=== PATIENT | female | born 1950 | race Caucasian/White ===

== ENCOUNTER 2017-05-28 06:54 | Inpatient (IN) ==
[2017-05-28] MEDS ORDERED: methylPREDNISolone 125 MG/2 ML VIAL IVP ONE (06:59)
[2017-05-28] MEDS ORDERED: Ipratropium/Albuterol Neb 3 ML ONE ×2 (06:59→10:35)
[2017-05-28] MEDS ORDERED: Ipratropium/Albuterol Neb 3 ML IH ONE ×2 (06:59→08:22)
[2017-05-28] MEDS ORDERED: 0.9 % Sodium Chloride 1,000 ML IVC ONE (07:00)
--- NOTE | 2017-05-28 07:12 | Emergency Department Note ---
Disposition Clinical Impression: COPD exacerbation Acute respiratory failure Qualifiers: Respiratory failure complication: hypoxia and hypercapnia Qualified Code(s): J96.01 - Acute respiratory failure with hypoxia Disposition: Admitted As Inpatient Condition: Good Referrals: NONE,PCP [Primary Care Provider] - Forms: ED Satisfaction Letter Time of Disposition: 10:15 SOB HPI - General Chief Complaint: ED Shortness of Breath/Dyspnea Stated Complaint: VERN Time Seen by Provider: 05/28/17 06:55 Source: patient, EMS Mode of arrival: EMS Limitations: altered mental status Nursing Notes Reviewed: Yes Vital Signs Reviewed: Yes - History of Present Illness 67-year-old female who comes by ambulance today for shortness of breath chest pain and not feeling well. EMS state that when they got to her how she was not wearing her home O2, she was smoking, and she was coughing up green mucus. She was satting 78% on room air. They put her on oxygen and got her up to 91%. Patient somewhat somnolent her end-tidal CO2 was above 65 per EMS. - Related Data Home Medications Medication Instructions Recorded Confirmed Alprazolam [Alprazolam Xr] 0.5 mg PO BID 06/06/16 05/28/17 Budesonide/Formoterol 80/4.5 1 puff IH HS 06/06/16 05/28/17 [Symbicort 80/4.5] Duloxetine HCl [Cymbalta] 60 mg PO HS 06/06/16 05/28/17 Ergocalciferol (VITAMIN D2) 50,000 unit PO WD 06/06/16 05/28/17 [Vitamin D2] Ezetimibe [Zetia] 10 mg PO QAM 06/06/16 05/28/17 Furosemide [Lasix] 20 mg PO DAILY 06/06/16 05/28/17 Gabapentin [Neurontin] 600 mg PO DAILY 06/06/16 05/28/17 HYDROcodone/Acet 7.5/325 mg [[place] 1 tab PO TID PRN 06/06/16 05/28/17 7.5-325 mg] Lisinopril-HCTZ 10-12.5 [Prinzide 1 each PO QAM 06/06/16 05/28/17 10-12.5] Metoprolol [Lopressor] 100 mg PO BID 06/06/16 05/28/17 Omeprazole 40 mg PO QAM 06/06/16 05/28/17 Potassium Chloride [Klor-Con] 20 meq PO DAILY 06/06/16 05/28/17 Promethazine [Phenergan] 25 mg PO Q6HR PRN 06/06/16 05/28/17 Albuterol Sulfate [Proair Hfa] 2 puff IH Q4H PRN 10/06/16 05/28/17 Aspirin [Ecotrin] 325 mg PO DAILY 10/06/16 05/28/17 Atorvastatin [Lipitor] 10 mg PO HS 10/06/16 05/28/17 Lactulose 20 gm PO DAILY PRN 10/06/16 05/28/17 Methylphenidate HCl [Ritalin] 15 mg PO 0800,1200 10/06/16 05/28/17 Previous Rx's Medication Instructions Recorded Cyanocobalamin (B-12) [Vitamin B12] 1,000 mcg PO DAILY #30 tablet 06/10/16 Folic Acid 1 mg PO DAILY #30 tablet 06/10/16 Metformin HCl [Glucophage] 500 mg PO BID #0 06/10/16 Allergies Allergy/AdvReac Type Severity Reaction Status Date / Time Sulfa (Sulfonamide Allergy Rash Verified 10/06/16 11:02 Antibiotics) codeine AdvReac Agitated Verified 10/06/16 11:02 morphine AdvReac Agitated Verified 10/06/16 11:02 Review of Systems: ROS reviewed and negative except as per HPI Chart generated with voice recognition software Past Medical History - Past Medical History Attestation: Yes The following information was validated with the patient. Source: patient, old records reviewed, obtained from family, nursing notes reviewed Medical history: Reports: arthritis, asthma, CHF, COPD, GERD, hyperlipidemia, hypertension, myocardial infarction Surgical history: Reports: appendectomy, breast surgery, cholecystectomy, hysterectomy, orthopedic, other, other Psychiatric history: Reports: anxiety, depression MEDICAL ASSISTING INSTRUCTOR history: Reports: no MEDICAL ASSISTING INSTRUCTOR history - Social History Smoking Status: Current every day smoker Smokeless Tobacco Status: No Alcohol use: Reports: rarely Drug use: Reports: none Physical Exam General: mild distress, tachycardic, patient wakes up and mumbles to loud voice/ painful stimulus Head: normocephalic, atraumatic Neck: NO CLA, Supple Chest wall: normal rise, no creptius, no deformity noted Lungs: coarse breath sounds, wheezing Heart: tachycardic Abd: soft, nontender, BS normal : deferred MSK: no obvious deformities neuro: alert and oriented to person. 2-12 grossly intact, patient visibly twitching all over Skin: cap refill delayed, warm, dry Psych: normal affect, not anxious - General Limitations: altered mental status General appearance: lethargic - Head Head exam: atraumatic, normocephalic, normal inspection Course Course Narrative: blood gas at 7:06 is venous. - Reevaluation(s) Reevaluation #1: Care assumed at 0 800. They had not been able to obtain blood work at this point in time. A femoral stick was done by me. Please refer to procedure note. History of present illness and review of systems reviewed. Physical exam reviewed. Blood gases done up until this point in time reviewed. Somnolent white female arousable, moderate respiratory distress, on BiPAP. HEENT: Pupils equal round reactive to light. Oropharynx is moist. Neck: Supple, no adenopathy. Heart: Tachycardic, regular, no murmurs or gallops noted. Lungs: Coarse breath sounds bilaterally, moderate expiratory wheezing, diffuse, scattered rhonchi. Abdomen: Soft, obese, no masses, no apparent tenderness. Neuro: Lethargic but arousable, moans and verbalizes minimally. Moves all extremities. Skin: Warm and dry, no cyanosis, no diaphoresis. Extremities: No peripheral edema. She was just given 3 duo nebs and IV Solu-Medrol. She is on BiPAP. Her first blood gas was venous, repeat blood gas was arterial. It does show some improvement and the pH and decrease in the PCO2. We will continue BiPAP, repeat her blood gas, evaluate for respiratory results. If she continues to improve we will continue BiPAP. If necessary we will proceed with intubation. Time: 08:06 Time: 08:58 Reevaluation #3: We were able to get a hold of her daughter. Nursing staff updated her on the patient's status. We were able to confirm her medications with her daughter. Time: 09:04 Additional Reevaluation(s): 1000: Continues to improve from a mental status standpoint. She arouses easily. She is oriented to person place and time. She knows her date of . Her PCO2 continues to improve, down to 100. Her pH is the same at 7.20. I discussed the case with the hospitalist, Dr. Hobbs. We will keep her here and continue treatment for COPD exacerbation. - Consultations Additional Consultation(s): Patient is more alert. She will open her eyes and speak. She is moving air somewhat better. Still coarse breath sounds bilaterally with some mild wheezing. She just finished her second stack of 3 nebulizers. We will be getting a repeat blood gas in the next 10 minutes. Vital Signs Temperature 98.2 F 05/28/17 06:58 Pulse Rate 109 05/28/17 06:58 Respiratory Rate 21 05/28/17 06:58 Blood Pressure 122/69 05/28/17 06:58 O2 Sat by Pulse Oximetry 88 05/28/17 06:58 Temperature 98.2 F 05/28/17 06:58 Pulse Rate 87 05/28/17 09:58 Respiratory Rate 18 05/28/17 09:58 Blood Pressure 109/58 05/28/17 09:58 O2 Sat by Pulse Oximetry 96 05/28/17 09:58 Oxygen Delivery Oxygen Delivery Bipap Procedures - Phlebotomy Reason for Blood Draw by MD: RN/lab unable Obtained Bloods via: femoral vein stick, femoral artery stick Estimated cc's Blood Obtained: 20 Shortness of Breath/Dyspnea - Medical Records Medical records reviewed: Yes I reviewed the patient's medical records. - Lab Data Lab results reviewed: Yes I reviewed the patient's lab results. Result diagrams: 05/28/17 08:05 05/28/17 08:05 Lab Results 05/28/17 05/28/17 05/28/17 Range/Units 07:06 07:45 08:05 WBC 8.5 (4.3-11.1) K/mcL RBC 4.00 (3.82-4.97) M/mcL Hgb 10.8 L (11.5-15.4) g/dL Hct 35.7 (35.3-44.9) % MCV 89.3 (83.0-100.0) fL MCH 27.0 L (28.0-33.3) pg MCHC 30.3 L (31.6-35.5) g/dL RDW 13.9 (11.5-14.5) % Plt Count 234 (140-400) K/mcL MPV 10.5 (9.4-12.4) fL Seg Neutrophils % 72.0 % Band Neutrophils % 9.0 H (0-4) % Lymphocytes % 8.0 % Monocytes % 10.0 % Myelocytes % 1.0 H (0) % Neutrophils # 6.9 (1.6-8.9) K/mcL Lymphocytes # 0.7 (0.6-4.6) K/mcL Monocytes # 0.9 (0.0-1.3) K/mcL Toxic Granulation Present A (Not Present) Toxic Vacuolation Present A (Not Present) Platelet Estimate Normal (Normal) PT (9.4-12.1) Seconds INR APTT (26.0-36.0) Seconds Sample Site R Brach ABG pH 7.16 L* 7.20 L* (7.32-7.45) pH Units ABG pCO2 121 H* 107 H* (35-45) mmHg ABG pO2 34 L* 71 L (85-104) mmHg ABG HCO3 43 H 41 H (21-27) mEq/L ABG Total CO2 47 H 45 H (20-26) mEq/L ABG O2 Saturation 44 L 88 L (95-98) % ABG Base Excess 9 H 9 H (-2 to 3) mEq/L Inspired O2 21.0 (1-15=lpm hy62-345=%) Sodium (136-145) mEq/L Potassium (3.5-4.5) mEq/L Chloride (98-109) mEq/L Carbon Dioxide (19-29) mEq/L BUN (7-20) mg/dL Creatinine (0.57-1.11) mg/dL Est GFR ( Amer) (> 60) Est GFR (Non-Af Amer) (> 60) BUN/Creatinine Ratio (6-26) Glucose (70-99) mg/dL Calculated Osmolality (280-300) Lactic Acid (0.5-2.2) mmol/L Calcium (8.6-10.8) mg/dL Troponin I (0-0.03) ng/mL B-Natriuretic Peptide (0-100) pg/mL Urine Color (Yellow) Urine Clarity (Clear) Urine pH (5.0-8.0) pH Units Ur Specific [place] (1.010-1.025) Urine Protein (Neg-Trace) mg/dL Urine Glucose (UA) (Normal) mg/dL Urine Ketones (Negative) mg/dL Urine Blood (Negative) Urine Nitrite (Negative) Urine Bilirubin (Negative) Urine Urobilinogen (Normal) mg/dL Ur Leukocyte Esterase (Negative) Urine Microscopic WBC (0-3) per hpf Ur Squamous Epith Cells (None-Few) per lpf Amorphous Sediment (Few) Urine Bacteria (None-Few) per hpf Urine Mucus (Few) Ur Culture Indicated? (NO) Person Notif of Cornellkorey Fletchersirena 05/28/17 05/28/17 05/28/17 Range/Units 08:05 08:05 08:05 WBC (4.3-11.1) K/mcL RBC (3.82-4.97) M/mcL Hgb (11.5-15.4) g/dL Hct (35.3-44.9) % MCV (83.0-100.0) fL MCH (28.0-33.3) pg MCHC (31.6-35.5) g/dL RDW (11.5-14.5) % Plt Count (140-400) K/mcL MPV (9.4-12.4) fL Seg Neutrophils % % Band Neutrophils % (0-4) % Lymphocytes % % Monocytes % % Myelocytes % (0) % Neutrophils # (1.6-8.9) K/mcL Lymphocytes # (0.6-4.6) K/mcL Monocytes # (0.0-1.3) K/mcL Toxic Granulation (Not Present) Toxic Vacuolation (Not Present) Platelet Estimate (Normal) PT 12.4 H (9.4-12.1) Seconds INR 1.1 APTT 23.2 L (26.0-36.0) Seconds Sample Site ABG pH (7.32-7.45) pH Units ABG pCO2 (35-45) mmHg ABG pO2 (85-104) mmHg ABG HCO3 (21-27) mEq/L ABG Total CO2 (20-26) mEq/L ABG O2 Saturation (95-98) % ABG Base Excess (-2 to 3) mEq/L Inspired O2 (1-15=lpm ag26-180=%) Sodium 140 (136-145) mEq/L Potassium 4.7 H (3.5-4.5) mEq/L Chloride 94 L (98-109) mEq/L Carbon Dioxide 37 H (19-29) mEq/L BUN 25 H (7-20) mg/dL Creatinine 0.75 (0.57-1.11) mg/dL Est GFR ( Amer) > 60 (> 60) Est GFR (Non-Af Amer) > 60 (> 60) BUN/Creatinine Ratio 33 H (6-26) Glucose 174 H (70-99) mg/dL Calculated Osmolality 299 (280-300) Lactic Acid 0.7 (0.5-2.2) mmol/L Calcium 10.1 (8.6-10.8) mg/dL Troponin I (0-0.03) ng/mL B-Natriuretic Peptide (0-100) pg/mL Urine Color (Yellow) Urine Clarity (Clear) Urine pH (5.0-8.0) pH Units Ur Specific [place] (1.010-1.025) Urine Protein (Neg-Trace) mg/dL Urine Glucose (UA) (Normal) mg/dL Urine Ketones (Negative) mg/dL Urine Blood (Negative) Urine Nitrite (Negative) Urine Bilirubin (Negative) Urine Urobilinogen (Normal) mg/dL Ur Leukocyte Esterase (Negative) Urine Microscopic WBC (0-3) per hpf Ur Squamous Epith Cells (None-Few) per lpf Amorphous Sediment (Few) Urine Bacteria (None-Few) per hpf Urine Mucus (Few) Ur Culture Indicated? (NO) Person Notif of Crit 05/28/17 05/28/17 05/28/17 Range/Units 08:05 08:05 08:10 WBC (4.3-11.1) K/mcL RBC (3.82-4.97) M/mcL Hgb (11.5-15.4) g/dL Hct (35.3-44.9) % MCV (83.0-100.0) fL MCH (28.0-33.3) pg MCHC (31.6-35.5) g/dL RDW (11.5-14.5) % Plt Count (140-400) K/mcL MPV (9.4-12.4) fL Seg Neutrophils % % Band Neutrophils % (0-4) % Lymphocytes % % Monocytes % % Myelocytes % (0) % Neutrophils # (1.6-8.9) K/mcL Lymphocytes # (0.6-4.6) K/mcL Monocytes # (0.0-1.3) K/mcL Toxic Granulation (Not Present) Toxic Vacuolation (Not Present) Platelet Estimate (Normal) PT (9.4-12.1) Seconds INR APTT (26.0-36.0) Seconds Sample Site ABG pH (7.32-7.45) pH Units ABG pCO2 (35-45) mmHg ABG pO2 (85-104) mmHg ABG HCO3 (21-27) mEq/L ABG Total CO2 (20-26) mEq/L ABG O2 Saturation (95-98) % ABG Base Excess (-2 to 3) mEq/L Inspired O2 (1-15=lpm rf88-245=%) Sodium (136-145) mEq/L Potassium (3.5-4.5) mEq/L Chloride (98-109) mEq/L Carbon Dioxide (19-29) mEq/L BUN (7-20) mg/dL Creatinine (0.57-1.11) mg/dL Est GFR ( Amer) (> 60) Est GFR (Non-Af Amer) (> 60) BUN/Creatinine Ratio (6-26) Glucose (70-99) mg/dL Calculated Osmolality (280-300) Lactic Acid (0.5-2.2) mmol/L Calcium (8.6-10.8) mg/dL Troponin I 0.00 (0-0.03) ng/mL B-Natriuretic Peptide 104 H (0-100) pg/mL Urine Color Yellow (Yellow) Urine Clarity Slightly Cloudy A (Clear) Urine pH 5.5 (5.0-8.0) pH Units Ur Specific [place] >= 1.030 H (1.010-1.025) Urine Protein 100 H (Neg-Trace) mg/dL Urine Glucose (UA) Normal (Normal) mg/dL Urine Ketones Negative (Negative) mg/dL Urine Blood Negative (Negative) Urine Nitrite Negative (Negative) Urine Bilirubin Negative (Negative) Urine Urobilinogen Normal (Normal) mg/dL Ur Leukocyte Esterase Negative (Negative) Urine Microscopic WBC 0-3 (0-3) per hpf Ur Squamous Epith Cells Few (None-Few) per lpf Amorphous Sediment Moderate H (Few) Urine Bacteria Moderate H (None-Few) per hpf Urine Mucus Moderate H (Few) Ur Culture Indicated? NO (NO) Person Notif of Crit 05/28/17 Range/Units 09:33 WBC (4.3-11.1) K/mcL RBC (3.82-4.97) M/mcL Hgb (11.5-15.4) g/dL Hct (35.3-44.9) % MCV (83.0-100.0) fL MCH (28.0-33.3) pg MCHC (31.6-35.5) g/dL RDW (11.5-14.5) % Plt Count (140-400) K/mcL MPV (9.4-12.4) fL Seg Neutrophils % % Band Neutrophils % (0-4) % Lymphocytes % % Monocytes % % Myelocytes % (0) % Neutrophils # (1.6-8.9) K/mcL Lymphocytes # (0.6-4.6) K/mcL Monocytes # (0.0-1.3) K/mcL Toxic Granulation (Not Present) Toxic Vacuolation (Not Present) Platelet Estimate (Normal) PT (9.4-12.1) Seconds INR APTT (26.0-36.0) Seconds Sample Site ABG pH 7.20 L* (7.32-7.45) pH Units ABG pCO2 100 H* (35-45) mmHg ABG pO2 69 L (85-104) mmHg ABG HCO3 40 H (21-27) mEq/L ABG Total CO2 43 H (20-26) mEq/L ABG O2 Saturation 87 L (95-98) % ABG Base Excess 8 H (-2 to 3) mEq/L Inspired O2 (1-15=lpm lk40-783=%) Sodium (136-145) mEq/L Potassium (3.5-4.5) mEq/L Chloride (98-109) mEq/L Carbon Dioxide (19-29) mEq/L BUN (7-20) mg/dL Creatinine (0.57-1.11) mg/dL Est GFR ( Amer) (> 60) Est GFR (Non-Af Amer) (> 60) BUN/Creatinine Ratio (6-26) Glucose (70-99) mg/dL Calculated Osmolality (280-300) Lactic Acid (0.5-2.2) mmol/L Calcium (8.6-10.8) mg/dL Troponin I (0-0.03) ng/mL B-Natriuretic Peptide (0-100) pg/mL Urine Color (Yellow) Urine Clarity (Clear) Urine pH (5.0-8.0) pH Units Ur Specific [place] (1.010-1.025) Urine Protein (Neg-Trace) mg/dL Urine Glucose (UA) (Normal) mg/dL Urine Ketones (Negative) mg/dL Urine Blood (Negative) Urine Nitrite (Negative) Urine Bilirubin (Negative) Urine Urobilinogen (Normal) mg/dL Ur Leukocyte Esterase (Negative) Urine Microscopic WBC (0-3) per hpf Ur Squamous Epith Cells (None-Few) per lpf Amorphous Sediment (Few) Urine Bacteria (None-Few) per hpf Urine Mucus (Few) Ur Culture Indicated? (NO) Person Notif of Tiffany villafuerte - Radiology Data Radiology results reviewed: Yes I reviewed the patient's radiology results. Impressions Chest X-Ray 05/28/17 07:00 IMPRESSION: Subtle interstitial reticulonodular changes which could represent pulmonary edema or possible bronchitis/bronchiolitis. No lobar pneumonia. D/ / 05/28/2017 08:22:58 Rubin Blair MD / Delphine Middleton Interpreting Provider: Rubin Blair MD - EKG Data EKG attestation: Yes I reviewed and interpreted this EKG. EKG results narrative: Sinus rhythm, rate of 93, nonspecific ST-T changes. Baseline artifact. Rhythm strip shows sinus rhythm with rate of 93, OK interval 152 ms, QRS 89 ms with no other ectopy as interpreted by me. This is compared to a tracing dated 11/10/16, no significant change other than the tachycardia noted on the november tracing. EKG shows normal: Reports: sinus rhythm Rate: Reports: normal Rhythm: Reports: NSR Raymond/QRS: Reports: normal Interpretation: Reports: no acute changes. Denies: acute OH, pericarditis Critical Care Time Critical Care Time: Yes Total Critical Care Time: 30 Attestation: Critical care time includes my initial assessment, review of laboratory, EKG, chest x-ray, multiple reassessments, review of arterial blood gases, consultation with hospitalist for admission. No procedure time is included. Ronit - Ronit Transition of Care: Patient labs history x-ray and current situation reviewed with the oncoming physician at shift change Situation: Demographics Background: Presenting Complaint, Relevant PMH, Meds, & Allergies Assessment: Vital Signs, Course and respsone to treatment, Exam Concerns, Patient/Family Expectation, Pertinant Lab Results, Outstanding Labs Recommendation: Barrier(s) to disposition, Recommendation based on pending studies, treatments, or consults S.B.APaty Report Given to: Dr Sharona Cottrell Repor Time: 08:03
[2017-05-28 07:51] LABS: ABG Base Excess 9 mEq/L (-2 to 3); ABG HCO3 41 mEq/L (21-27); ABG Oxygen Saturation 88 % (95-98); ABG PCO2 107 mmHg (35-45); ABG PO2 71 mmHg (85-104); ABG TCO2 45 mEq/L (20-26)
[2017-05-28 08:20] LABS: Bilirubin,Urine Negative (Negative); Blood,Urine Negative (Negative); Clarity,Urine Slightly Cloudy (Clear); Color,Urine Yellow (Yellow); Glucose,Urine (UA) Normal (Normal); Ketones,Urine Negative (Negative); Leukocyte Esterase,Urine Negative (Negative); Nitrite,Urine Negative (Negative); PH,Urine 5.5 pH Units (5.0-8.0); Protein,Urine 100 mg/dL (Neg-Trace); Specific Gravity,Urine >= 1.030 (1.010-1.025); Urobilinogen,Urine Normal (Normal)
[2017-05-28 08:21] LABS: Hematocrit 35.7 % (35.3-44.9); Hemoglobin 10.8 g/dL (11.5-15.4); Mean Corpuscular HGB Conc 30.3 g/dL (31.6-35.5); Mean Corpuscular Volume 89.3 fL (83.0-100.0); Mean Platelet Volume 10.5 fL (9.4-12.4); Platelet Count 234 K/mcL (140-400); Red Cell Distribution Width 13.9 % (11.5-14.5)
[2017-05-28 08:23] LABS: INR 1.1; Prothrombin Time 12.4 Seconds (9.4-12.1)
[2017-05-28 08:25] LABS: Activated Partial Thrombo Time 23.2 Seconds (26.0-36.0)
[2017-05-28] MEDS ORDERED: Albuterol 2.5 MG/3 ML NEBULIZER IH SCH ×2 (08:30→10:35)
[2017-05-28 08:34] LABS: BUN/Creatinine Ratio 33 (6-26); Blood Urea Nitrogen 25 mg/dL (7-20); Calcium 10.1 mg/dL (8.6-10.8); Carbon Dioxide 37 mEq/L (19-29); Chloride 94 mEq/L (98-109); Glucose 174 mg/dL (70-99); Osmolality,Calculated 299 (280-300); Potassium 4.7 mEq/L (3.5-4.5); Sodium 140 mEq/L (136-145); eGFR For African Americans > 60 (> 60); eGFR For Non-African Americans > 60 (> 60)
[2017-05-28 08:40] LABS: Amorphous Sediment,Urine Moderate (Few); Bacteria,Urine Moderate per hpf (None-Few); Mucus,Urine Moderate (Few); Squamous Epithelial Cell,Urine Few per lpf (None-Few); WBC,Urine 0-3 per hpf (0-3)
[2017-05-28 08:55] LABS: Lymphocytes # 0.7 K/mcL (0.6-4.6); Monocytes # 0.9 K/mcL (0.0-1.3)
[2017-05-28 08:56] LABS: Neutrophils # 6.9 K/mcL (1.6-8.9); Platelet Estimate Normal (Normal); Toxic Granulation Present (Not Present); Toxic Vacuolation Present (Not Present)
[2017-05-28 09:40] LABS: ABG Base Excess 8 mEq/L (-2 to 3); ABG HCO3 40 mEq/L (21-27); ABG Oxygen Saturation 87 % (95-98); ABG PCO2 100 mmHg (35-45); ABG PO2 69 mmHg (85-104); ABG TCO2 43 mEq/L (20-26)
[2017-05-28] MEDS ORDERED: Lactulose Oral Soln 20 GM/30 ML UDC PO PRN (10:35)
[2017-05-28] MEDS ORDERED: Naloxone 0.4 MG/ML INJ IVP PRN (10:35)
[2017-05-28] MEDS ORDERED: 0.9 % Sodium Chloride 1,000 ML IVC SCH (10:35)
[2017-05-28] MEDS: Ipratropium/Albuterol Neb 3 ML IH SCH ×3 (11:51→20:04)
[2017-05-28] MEDS ORDERED: ALPRAZolam 0.5 MG TABLET PO PRN (12:15)
--- NOTE | 2017-05-28 12:21 | Internal Med History&Physical ---
Date of Encounter: 05/28/17 Time of Encounter: 11:50 Assessment and Plan (1) Acute respiratory failure Current visit: Yes Status: Acute She has been placed on BiPAP. Follow-up blood gas will be ordered and other intervention as needed. Qualifiers: Respiratory failure complication: hypoxia and hypercapnia Qualified Code(s) : J96.01 - Acute respiratory failure with hypoxia; J96.02 - Acute respiratory failure with hypercapnia; J96.02 - Acute respiratory failure with hypercapnia; J96.02 - Acute respiratory failure with hypercapnia (2) Acute exacerbation of chronic obstructive airways disease Current visit: No Status: Acute She will be given nebulizer treatments and Solu-Medrol. Follow-up labs will be done in a.m. Internal Medicine - H&P: HPI Chief complaint: Dyspnea Admitted From: Home Plans for Post Hospital Care: Home History of present illness: Ms. Barnes is a 67 year old female who was brought to emergency room by squad after she was found to have hypoxemia with O2 saturation 78% on room air. Per the emergency room record, when the squad arrived the patient was not wearing home oxygen but was smoking. Her saturation improved to 91% on reapplication of oxygen. She was evaluated in emergency room and found to have acute respiratory insufficiency. She was placed on BiPAP and a follow-up blood gas showed some improvement. She was admitted to [facility] floor for ongoing care needs. She was hospitalized last at [facility] May 2016 with similar complaints. Her respiratory history is significant for having smoked since age 13 up to 1 pack per day. She wears oxygen at home / except taking it off to smoke. She denies PFTs. 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 Past Med Surg Social Fam HX - Past Medical History Medical history: arthritis, asthma, CHF, COPD, GERD, hyperlipidemia, hypertension, myocardial infarction Psychiatric history: anxiety, depression - Past Surgical History Surgical History: appendectomy, breast surgery, cholecystectomy, hysterectomy, orthopedic, other, other - Social History Smoking Status: Current every day smoker Smokeless Tobacco Status: No Alcohol use: rarely Drug use: none - Family History Mother Living Status: Hx Family Cancer: Yes Father Living Status: Hx Family Cancer: Yes (bone) Internal Medicine - H&P: Meds Alprazolam [Alprazolam Xr] 0.5 mg PO BID 11/29/16 [History] Budesonide/Formoterol 80/4.5 [Symbicort 80/4.5] 1 puff IH HS 06/06/16 [History] Duloxetine HCl [Cymbalta] 60 mg PO HS 06/06/16 [History] Ergocalciferol (VITAMIN D2) [Vitamin D2] 50,000 unit PO WD 06/06/16 [History] Ezetimibe [Zetia] 10 mg PO QAM 06/06/16 [History] Furosemide [Lasix] 20 mg PO DAILY 06/06/16 [History] Gabapentin [Neurontin] 600 mg PO DAILY 06/06/16 [History] HYDROcodone/Acet 7.5/325 mg [[place] 7.5-325 mg] 1 tab PO TID PRN 06/06/16 [ History] Lisinopril-HCTZ 10-12.5 [Prinzide 10-12.5] 1 each PO QAM 06/06/16 [History] Metoprolol [Lopressor] 100 mg PO BID 06/06/16 [History] Omeprazole 40 mg PO QAM 06/06/16 [History] Potassium Chloride [Klor-Con] 20 meq PO DAILY 06/06/16 [History] Promethazine [Phenergan] 25 mg PO Q6HR PRN 06/06/16 [History] Cyanocobalamin (B-12) [Vitamin B12] 1,000 mcg PO DAILY #30 tablet 06/10/16 [Rx] Folic Acid 1 mg PO DAILY #30 tablet 06/10/16 [Rx] Metformin HCl [Glucophage] 500 mg PO BID #0 06/10/16 [Rx] Albuterol Sulfate [Proair Hfa] 2 puff IH Q4H PRN 10/06/16 [History] Aspirin [Ecotrin] 325 mg PO DAILY 10/06/16 [History] Atorvastatin [Lipitor] 10 mg PO HS 10/06/16 [History] Lactulose 20 gm PO DAILY PRN 10/06/16 [History] Methylphenidate HCl [Ritalin] 15 mg PO 0800,1200 10/06/16 [History] 3 Allergy/AdvReac Type Severity Reaction Status Date / Time Sulfa (Sulfonamide Allergy Rash Verified 10/06/16 11:02 Antibiotics) codeine AdvReac Agitated Verified 10/06/16 11:02 morphine AdvReac Agitated Verified 10/06/16 11:02 All Systems PM: A 10-system review of systems was performed and is negative for pertinent findings except as documented above in the HPI. Review of systems: Review of systems from her May 2016 [facility] hospitalization were reviewed and revised as below. Gen.: Her weight has increased minimally from 89.539 kg on 06/10/2016 to 91.172 kg now Cardiovascular: She has history of hypertension. Denies CA heart failure angina DVT or pulmonary embolus. She had an echocardiogram at [facility] 08/01/2014 which showed LVEF of 70%. There was mild diastolic dysfunction reported with E/ A ratio 0.7. There was mild tricuspid regurgitation present. She had a left heart catheter done at [facility] 08/03/2014 which showed 50% stenosis in the mid RCA , 30% stenosis in the mid circumflex and 40% stenosis in the first marginal branch of the circumflex. There was 30% stenosis in the proximal LAD and 40% stenosis in the mid LAD. The LMCA was angiographically free of disease. The LVEF was 65%. Respiratory: As per history of present illness GI: She has had cholecystectomy. She has GERD. She denies disorders of her liver or exocrine pancreas. : She had hematuria in the past which resolved. She denies other kidney or bladder disorders. Neurologic: She denies large distribution strokes or seizures. She has diabetic peripheral neuropathy Endocrine: She was diagnosed with DM 2 approximately 2006. She has hyperlipidemia and hypothyroidism history but does not take levothyroxin. Hematology/oncology: She had anemia found on emergency room blood work. She denies internal malignancies. She had a benign right breast lump removed several years ago. Psychiatric: She has anxiety depression but denies other mental health issues Musk skeletal: She has DJD. She complains of chronic low back pain today. She denies gout. - Constitutional Vitals: Temp Pulse Resp BP Pulse Ox 98.2 F 85 24 125/80 98 05/28/17 06:58 05/28/17 10:24 05/28/17 10:24 05/28/17 10:24 05/28/17 10:24 Exam: Gen.: She is a well-developed well-nourished female who appears in no severe distress at present time. She is lethargic but does awaken and answer a few questions. HEENT: Head is atraumatic and normocephalic. Eyes: EOMI. There is no scleral icterus. Mouth: Mucosa is moist. Neck: Supple and nontender. There is no thyromegaly or adenopathy noted. Heart: Regular without murmurs gallops or ectopics Lungs: No wheezes or crackles are heard. Abdomen: Soft and nontender. No masses or guarding are noted. Extremities: There is no cyanosis edema, noted. Dorsalis pedis and posterior tibial pulses are trace palpable bilaterally. Neurologic: Mental status: She is lethargic but awakens and answers a few questions. Cranial nerves: Smile is symmetric. Forehead wrinkles bilaterally. Tongue protrudes midline. EOMI. Motor: She does not follow commands for pronator drift testing. She has equal arm tone on passive range of motion. She moves her arms well randomly to observation. No further neurologic testing is attempted. Skin: Warm and dry Internal Med - H&P Results - Labs CBC & Chem 7: 05/28/17 08:05 05/28/17 08:05
--- NOTE | 2017-05-28 13:09 | Electrocardiograph Report ---
[place] [id number] Test Date: 2017-05-28 Pat Name: Radha Barnes Department: 9201 Room: [facility] Gender: F Land Planner: Solitario : 1950 Requested By: Elyssa Hurst Order Number: [id number] Reading MD: Bonny Oquendo Measurements Intervals [place] Rate: 93 P: 71 [place]: 152 QRS: 59 QRSD: 89 T: 60 QT: 320 QTc: 371 Interpretive Statements SINUS RHYTHM ARTIFACT Electronically Signed On 05-28-2017 12:38:00 EST by Bonny Oquendo
[2017-05-28] MEDS: Nicotine 21 MG PATCH.TD24 TD SCH (14:25)
[2017-05-28] MEDS: METHYLPHENIDATE HCL 10 MG PO SCH (14:25)
[2017-05-28] MEDS: methylPREDNISolone 125 MG/2 ML VIAL IVP SCH (14:25)
[2017-05-28] MEDS: *HR* HYDROcodone/Acet 7.5/325 mg TABLET PO PRN (17:33)
[2017-05-28 18:31] LABS: ABG Base Excess 9 mEq/L (-2 to 3); ABG HCO3 39 mEq/L (21-27); ABG Oxygen Saturation 84 % (95-98); ABG PCO2 78 mmHg (35-45); ABG PO2 57 mmHg (85-104); ABG TCO2 41 mEq/L (20-26)
[2017-05-28] MEDS ORDERED: *HR* Metformin 500 MG TABLET PO SCH (21:00)
[2017-05-28] MEDS ORDERED: Gabapentin 300 MG CAPSULE PO ONE (21:00)
[2017-05-28] MEDS ORDERED: ALPRAZolam 0.5 MG TABLET PO SCH (21:00)
[2017-05-28] MEDS ORDERED: 0.45 % Sodium Chloride 500 ML IV.SOLN IVC SCH (22:00)
[2017-05-29] MEDS: Ipratropium/Albuterol Neb 3 ML IH SCH ×3 (00:10→09:20)
[2017-05-29] MEDS: methylPREDNISolone 125 MG/2 ML VIAL IVP SCH ×2 (00:46→11:39)
[2017-05-29] MEDS: *HR* HYDROcodone/Acet 7.5/325 mg TABLET PO PRN ×2 (04:24→20:44)
[2017-05-29] MEDS ORDERED: *HR* Enoxaparin 30 MG/0.3 ML SYRINGE SQ SCH (06:00)
[2017-05-29 07:44] LABS: Hematocrit 33.4 % (35.3-44.9); Hemoglobin 9.8 g/dL (11.5-15.4); Immature Granulocytes % 0.3 % (0-4); Lymphocytes # 0.6 K/mcL (0.6-4.6); Lymphocytes % 7.9 %; Mean Corpuscular HGB Conc 29.3 g/dL (31.6-35.5); Mean Corpuscular Hemoglobin 25.9 pg (28.0-33.3); Mean Corpuscular Volume 88.4 fL (83.0-100.0); Mean Platelet Volume 9.9 fL (9.4-12.4); Monocytes # 0.4 K/mcL (0.0-1.3); Monocytes % 4.8 %; Neutrophils # 6.5 K/mcL (1.6-8.9); Platelet Count 203 K/mcL (140-400); Red Blood Count 3.78 M/mcL (3.82-4.97); Red Cell Distribution Width 13.9 % (11.5-14.5)
[2017-05-29] MEDS: *HR* Metformin 500 MG TABLET PO SCH ×2 (07:56→18:09)
[2017-05-29] MEDS: Cyanocobalamin (B-12) 1,000 MCG TABLET PO SCH (07:56)
[2017-05-29] MEDS: Folic Acid 1 MG TABLET PO SCH (07:57)
[2017-05-29] MEDS ORDERED: methylPREDNISolone 125 MG/2 ML VIAL IVP SCH (08:00)
[2017-05-29] MEDS ORDERED: Aspirin Enteric Coated 325 MG Tablet PO SCH (09:00)
[2017-05-29] MEDS ORDERED: Furosemide 20 MG TABLET PO SCH (09:00)
[2017-05-29] MEDS ORDERED: Gabapentin 300 MG CAPSULE PO SCH (09:00)
[2017-05-29] MEDS: Nicotine 21 MG PATCH.TD24 TD SCH (09:05)
[2017-05-29] MEDS: Cholecalciferol (D-3) 1,000 UNIT TABLET PO SCH (09:09)
[2017-05-29] MEDS: (Ezetimibe [Zetia] 10 MG) PO SCH (09:10)
[2017-05-29 09:16] LABS: ABG Base Excess 9 mEq/L (-2 to 3); ABG HCO3 38 mEq/L (21-27); ABG Oxygen Saturation 85 % (95-98); ABG PCO2 75 mmHg (35-45); ABG PH 7.32 pH Units (7.32-7.45); ABG PO2 56 mmHg (85-104); ABG TCO2 41 mEq/L (20-26)
--- NOTE | 2017-05-29 09:42 | Internal Med Progress Note ---
Date of Encounter: 05/29/17 Time of Encounter: 09:35 - Assessment and plan (1) Acute respiratory failure Current Visit: Yes Status: Acute Assessment and plan: May 29. Continue present regimen. Anticipate discharge home tomorrow if stable. Qualifiers: Respiratory failure complication: hypoxia and hypercapnia Qualified Code(s) : J96.01 - Acute respiratory failure with hypoxia; J96.02 - Acute respiratory failure with hypercapnia; J96.02 - Acute respiratory failure with hypercapnia; J96.02 - Acute respiratory failure with hypercapnia (2) Acute exacerbation of chronic obstructive airways disease Current Visit: No Status: Acute Assessment and plan: May 29. Will add Levaquin with lactobacillus since she has left shift on WBC and is producing yellow mucus with coughing. (3) Anemia Current Visit: No Status: Acute Assessment and plan: May 29. Anemia testing was ordered with results pending. Reduce aspirin to 81 mg daily Qualifiers: Anemia type: unspecified type Qualified Code(s): D64.9 - Anemia, unspecified (4) Lung nodule < 6cm on CT Current Visit: No Status: Chronic Assessment and plan: May 29. Will order repeat chest CT today. - Subjective Interval history: May 29. She has no new complaints and feels better overall. - Constitutional Vitals: Temp Pulse Resp BP Pulse Ox 98.1 F 80 18 108/51 90 05/29/17 06:36 05/29/17 06:36 05/29/17 06:36 05/29/17 06:36 05/29/17 06:36 Exam: She is resting comfortably in bed and appears in no acute distress. Her affect is bright and cheerful and she is appropriate in conversation. Lungs showed no wheezes. I reviewed her medications and lab results. Internal Medicine: Result - Labs CBC & Chem 7: 05/29/17 07:33 05/28/17 08:05 Labs: Short CBC 05/29/17 Range/Units 07:33 WBC 7.5 (4.3-11.1) K/mcL Hgb 9.8 L (11.5-15.4) g/dL Hct 33.4 L (35.3-44.9) % Plt Count 203 (140-400) K/mcL Neutrophils # 6.5 (1.6-8.9) K/mcL - ABG Interpretation ABG results: ABG ABG pH 7.32 pH Units (7.32-7.45) 05/29/17 09:11 ABG pCO2 75 mmHg (35-45) H* 05/29/17 09:11 ABG pO2 56 mmHg (85-104) L 05/29/17 09:11 ABG O2 Saturation 85 % (95-98) L 05/29/17 09:11 PT/INR, D-dimer PT 12.4 Seconds (9.4-12.1) H 05/28/17 08:05 Consult Discharge Plan - Plan Referrals: NONE,PCP [Primary Care Provider] - 1 week
[2017-05-29] MEDS ORDERED: Aspirin Enteric Coated 81 MG Tablet PO SCH (09:48)
[2017-05-29] MEDS ORDERED: Ipratropium/Albuterol Neb 3 ML IH PRN (09:49)
[2017-05-29 10:04] LABS: Alanine Aminotransferase 18 Units/L (0-55); Albumin 2.5 g/dL (3.5-5.0); Albumin/Globulin Ratio 0.6 (1.1-2.2); Alkaline Phosphatase 76 Units/L (38-126); Aspartate Amino Transferase 17 Units/L (5-34); BUN/Creatinine Ratio 32 (6-26); Bilirubin,Total 0.2 mg/dL (0.2-1.2); Blood Urea Nitrogen 22 mg/dL (7-20); Calcium 9.7 mg/dL (8.6-10.8); Carbon Dioxide 36 mEq/L (19-29); Chloride 95 mEq/L (98-109); Glucose 178 mg/dL (70-99); Osmolality,Calculated 294 (280-300); Potassium 4.6 mEq/L (3.5-4.5); Sodium 138 mEq/L (136-145); Total Protein 6.5 g/dL (6.0-8.3); eGFR For African Americans > 60 (> 60); eGFR For Non-African Americans > 60 (> 60)
[2017-05-29] MEDS: GuaiFENesin/Dextromethorphan TABLET PO SCH ×2 (11:22→20:39)
[2017-05-29] MEDS: levoFLOXacin 500 MG TABLET PO SCH (11:22)
[2017-05-29] MEDS: METHYLPHENIDATE HCL 10 MG PO SCH ×2 (11:38→13:42)
[2017-05-29] MEDS: Benzonatate 100 MG CAPSULE PO SCH ×3 (13:56→23:15)
[2017-05-29 20:27] LABS: Folate 15.7 ng/mL (7.0-31.4)
[2017-05-29 20:32] LABS: % Iron Saturation 7 % (15-50); Iron 23 mcg/dL (50-170); Transferrin 220 mg/dL (180-382)
[2017-05-29] MEDS: Lactobacillus 1 EACH CAP.SPRINK PO SCH (20:39)
[2017-05-29 20:57] LABS: Ferritin 119 ng/ml (5-204)
[2017-05-30] MEDS ORDERED: *HR* Enoxaparin 40 MG/0.4 ML SYRINGE SQ SCH (06:00)
[2017-05-30 07:31] VITALS: BP 115/69
[2017-05-30] MEDS: Nicotine 21 MG PATCH.TD24 TD SCH (07:57)
[2017-05-30] MEDS: GuaiFENesin/Dextromethorphan TABLET PO SCH (07:58)
[2017-05-30] MEDS: Benzonatate 100 MG CAPSULE PO SCH (07:58)
[2017-05-30] MEDS: levoFLOXacin 500 MG TABLET PO SCH (07:58)
[2017-05-30] MEDS: *HR* Metformin 500 MG TABLET PO SCH (07:58)
[2017-05-30] MEDS: Cyanocobalamin (B-12) 1,000 MCG TABLET PO SCH (07:59)
[2017-05-30] MEDS: Lactobacillus 1 EACH CAP.SPRINK PO SCH (07:59)
[2017-05-30] MEDS: Folic Acid 1 MG TABLET PO SCH (07:59)
[2017-05-30] MEDS: (Ezetimibe [Zetia] 10 MG) PO SCH (08:07)
[2017-05-30] MEDS: Cholecalciferol (D-3) 1,000 UNIT TABLET PO SCH (08:08)
[2017-05-30] MEDS: METHYLPHENIDATE HCL 10 MG PO SCH (08:08)
--- NOTE | 2017-05-30 10:09 | Discharge Summary ---
Date of Encounter: 05/30/17 Time of Encounter: 09:50 - Discharge Diagnosis (1) Acute respiratory failure Priority: Primary Status: Acute Qualifiers: Respiratory failure complication: hypoxia and hypercapnia Qualified Code(s) : J96.01 - Acute respiratory failure with hypoxia; J96.02 - Acute respiratory failure with hypercapnia; J96.02 - Acute respiratory failure with hypercapnia; J96.02 - Acute respiratory failure with hypercapnia (2) Acute exacerbation of chronic obstructive airways disease Priority: Secondary Status: Acute (3) Anemia Priority: Secondary Status: Acute Qualifiers: Anemia type: unspecified type Qualified Code(s): D64.9 - Anemia, unspecified (4) Lung nodule < 6cm on CT Priority: Secondary Status: Chronic - Discharge Medications Prescriptions: Ascorbic Acid [Vitamin C] 500 mg PO DAILY #30 tablet.er Aspirin [Lo-Dose Aspirin EC] 81 mg PO DAILY 365 Days tablet. Ferrous Sulfate 325 mg PO DAILY #30 tablet Lactobacillus [Culturelle] 1 each PO BID #6 cap.sprink levoFLOXacin [Levaquin] 500 mg PO DAILY #3 tablet Magnesium Oxide [Mag-Ox] 400 mg PO BID #14 tablet Home Medications: Budesonide/Formoterol 80/4.5 [Symbicort 80/4.5] 1 puff IH HS 06/06/16 [History] Duloxetine HCl [Cymbalta] 60 mg PO HS 06/06/16 [History] Ergocalciferol (VITAMIN D2) [Vitamin D2] 50,000 unit PO WD 06/06/16 [History] Ezetimibe [Zetia] 10 mg PO QAM 06/06/16 [History] Gabapentin [Neurontin] 600 mg PO DAILY 06/06/16 [History] HYDROcodone/Acet 7.5/325 mg [[place] 7.5-325 mg] 1 tab PO TID PRN 06/06/16 [ History] Metoprolol [Lopressor] 100 mg PO BID 06/06/16 [History] Omeprazole 40 mg PO QAM 06/06/16 [History] Promethazine [Phenergan] 25 mg PO Q6HR PRN 06/06/16 [History] Cyanocobalamin (B-12) [Vitamin B12] 1,000 mcg PO DAILY #30 tablet 06/10/16 [Rx] Folic Acid 1 mg PO DAILY #30 tablet 06/10/16 [Rx] Metformin HCl [Glucophage] 500 mg PO BID #0 06/10/16 [Rx] Albuterol Sulfate [Proair Hfa] 2 puff IH Q4H PRN 10/06/16 [History] Atorvastatin [Lipitor] 10 mg PO HS 10/06/16 [History] Lactulose 20 gm PO DAILY PRN 10/06/16 [History] Methylphenidate HCl [Ritalin] 15 mg PO 0800,1200 10/06/16 [History] Alprazolam [Alprazolam Xr] 0.5 mg PO BID PRN #0 05/30/17 [Rx] Ascorbic Acid [Vitamin C] 500 mg PO DAILY #30 tablet.er 05/30/17 [Rx] Aspirin [Lo-Dose Aspirin EC] 81 mg PO DAILY 365 Days tablet.dr 05/30/17 [Rx] Ferrous Sulfate 325 mg PO DAILY #30 tablet 05/30/17 [Rx] Lactobacillus [Culturelle] 1 each PO BID #6 cap.sprink 05/30/17 [Rx] Magnesium Oxide [Mag-Ox] 400 mg PO BID #14 tablet 05/30/17 [Rx] levoFLOXacin [Levaquin] 500 mg PO DAILY #3 tablet 05/30/17 [Rx] Allergies/Adverse Reactions: 3 Allergy/AdvReac Type Severity Reaction Status Date / Time Sulfa (Sulfonamide Allergy Rash Verified 10/06/16 11:02 Antibiotics) codeine AdvReac Agitated Verified 10/06/16 11:02 morphine AdvReac Agitated Verified 10/06/16 11:02 Procedures/tests Complete & Pending: Procedures Performed prior 72 hours Category Date Time Status CT chest wo con [CT] Routine Cat Scan 05/29/17 09:50 Completed Date of admission: 05/28/17 10:33 Primary care physician: Ji Loya M.D. - Patient Status Disposition: Home, Self-Care Condition: Good Overall status at discharge: patient is progressing back to baseline - Discharge Instructions Follow Up With: Ji Loya MD [Partnered Physician] - 1 week - Diet and Activity Activity: resume usual activities as tolerated, wear oxygen at all times Diet: advance to your usual diet Hospital course: Ms. Barnes is a 67 year old female who was brought to emergency room by squad after she was found to have hypoxemia with O2 saturation 78% on room air. Per the emergency room record, when the squad arrived the patient was not wearing home oxygen but was smoking. Her saturation improved to 91% on reapplication of oxygen. She was evaluated in emergency room and found to have acute respiratory insufficiency. She was placed on BiPAP and a follow-up blood gas showed some improvement. She was admitted to [facility] for ongoing care needs. Initial orders were written by the emergency room physician. I saw her on May 28 and performed the history and physical. She was given IV fluids and initially placed on BiPAP. She has significant improvement after several hours and was able to maintain off BiPAP most the remainder of her hospital stay. Follow-up blood gas on 05/29/2017 showed pH normal at 7.32. I encouraged her to remain a nonsmoker. She will continue oxygen use at home. Anemia testing showed iron 23, transferrin saturation 7%, transferrin 20, ferritin 119, B12 463, folate 15.7. She will be started on ferrous sulfate with vitamin C at discharge. She will continue B12 and folate supplements as at home. I reduced her aspirin dose to 81 mg daily. Hemoglobin had decreased to 9.8 on May 29. Her PCP can monitor her labs. Magnesium level returned low at 1.0. She will be started on magnesium oxide 400 mg daily twice a day. I discontinued her Lasix and lisinopril/HCTZ since her blood pressure was borderline low during hospitalization. Chest CT was done to follow-up on nodule seen on previous chest CT 06/07/2016. The new study showed stable subcentimeter nodules in the right lung probably post infectious or inflammatory. There were new small nodules in the left upper lobe and additional micronodules in the left lung. A follow-up CT in 12 months could be obtained to monitor this. I will let her PCP follow-up on this. On May 30 she felt improved and stable for discharge home. She will follow with her PCP Dr. Ji Loya within 1 week. - Time Spent with Patient Total time spent providing and/or coordinating discharge services: - Constitutional Vitals: Temp Pulse Resp BP Pulse Ox 97.7 F 73 20 115/69 92 05/30/17 07:30 05/30/17 07:30 05/30/17 07:30 05/30/17 07:30 05/30/17 07:30
--- NOTE | 2017-05-30 12:05 | Physician Discharge Referral ---
Home Health/Hosp Referral Info Transfer to: Home Health Attending Provider: Anjel Provider in Charge Post Discharge: PCP (Ji Loya M.D.) - Diagnosis (1) Acute respiratory failure Priority: Primary Status: Acute (2) Acute exacerbation of chronic obstructive airways disease Priority: Secondary Status: Acute (3) Anemia Priority: Secondary Status: Acute (4) Lung nodule < 6cm on CT Priority: Secondary Status: Acute - Respiratory Orders Oxygen / L per min (2 L by nasal cannula 29/01) Smoking Cessation: Smoking cessation has been advised. For more information, call the [place] Tobacco Quit Line at 4-371-WBIY-NOW. - Diet/Nutrition Diet/Nutrition Orders: Regular - Activity Activity Orders: Ambulate - Services Needed Following services are medically necessary services: Nursing, Home Health Aide, Physical Therapy, Occupational Therapy - Transfer Medications Prescriptions: Ascorbic Acid [Vitamin C] 500 mg PO DAILY #30 tablet.er Aspirin [Lo-Dose Aspirin EC] 81 mg PO DAILY 365 Days tablet. Ferrous Sulfate 325 mg PO DAILY #30 tablet Lactobacillus [Culturelle] 1 each PO BID #6 cap.sprink levoFLOXacin [Levaquin] 500 mg PO DAILY #3 tablet Magnesium Oxide [Mag-Ox] 400 mg PO BID #14 tablet Home Medications: Budesonide/Formoterol 80/4.5 [Symbicort 80/4.5] 1 puff IH HS 06/06/16 [History] Duloxetine HCl [Cymbalta] 60 mg PO HS 06/06/16 [History] Ergocalciferol (VITAMIN D2) [Vitamin D2] 50,000 unit PO WD 06/06/16 [History] Ezetimibe [Zetia] 10 mg PO QAM 06/06/16 [History] Gabapentin [Neurontin] 600 mg PO DAILY 06/06/16 [History] HYDROcodone/Acet 7.5/325 mg [[place] 7.5-325 mg] 1 tab PO TID PRN 06/06/16 [ History] Metoprolol [Lopressor] 100 mg PO BID 06/06/16 [History] Omeprazole 40 mg PO QAM 06/06/16 [History] Promethazine [Phenergan] 25 mg PO Q6HR PRN 06/06/16 [History] Cyanocobalamin (B-12) [Vitamin B12] 1,000 mcg PO DAILY #30 tablet 06/10/16 [Rx] Folic Acid 1 mg PO DAILY #30 tablet 06/10/16 [Rx] Metformin HCl [Glucophage] 500 mg PO BID #0 06/10/16 [Rx] Albuterol Sulfate [Proair Hfa] 2 puff IH Q4H PRN 10/06/16 [History] Atorvastatin [Lipitor] 10 mg PO HS 10/06/16 [History] Lactulose 20 gm PO DAILY PRN 10/06/16 [History] Methylphenidate HCl [Ritalin] 15 mg PO 0800,1200 10/06/16 [History] Alprazolam [Alprazolam Xr] 0.5 mg PO BID PRN #0 05/30/17 [Rx] Ascorbic Acid [Vitamin C] 500 mg PO DAILY #30 tablet.er 05/30/17 [Rx] Aspirin [Lo-Dose Aspirin EC] 81 mg PO DAILY 365 Days tablet. 05/30/17 [Rx] Ferrous Sulfate 325 mg PO DAILY #30 tablet 05/30/17 [Rx] Lactobacillus [Culturelle] 1 each PO BID #6 cap.sprink 05/30/17 [Rx] Magnesium Oxide [Mag-Ox] 400 mg PO BID #14 tablet 05/30/17 [Rx] levoFLOXacin [Levaquin] 500 mg PO DAILY #3 tablet 05/30/17 [Rx] Allergies/Adverse Reactions: 3 Allergy/AdvReac Type Severity Reaction Status Date / Time Sulfa (Sulfonamide Allergy Rash Verified 10/06/16 11:02 Antibiotics) codeine AdvReac Agitated Verified 10/06/16 11:02 morphine AdvReac Agitated Verified 10/06/16 11:02 Certification: Further, I certify that my clinical findings support that this patient is homebound (i.e. absences from home require considerable and taxing effort and are for medical reasons or restoration services or infrequently or short duration when for other reasons) because: Homebound Reason: Leaving home requires considerable and taxing effort due to condition (COPD with hypoxemia) Attestation: My signature below is to certify that this patient is under my care and that I, or nurse practitioner, or a physician's pharmaceutical assistant working with me, has a face-to -face encounter with this patient.
== END 2017-05-30 13:04 | disposition home health service (06) | DRG 140 ==
LOC: EMEROOPIK 06:54 → INPPIK 10:33
PROVIDERS: ADMIT Internal Medicine; ATTEND Internal Medicine

== ENCOUNTER 2017-06-16 21:49 | Inpatient (IN) ==
[2017-06-16] MEDS ORDERED: methylPREDNISolone 125 MG/2 ML VIAL IVP ONE (22:08)
[2017-06-16] MEDS ORDERED: Azithromycin 500 MG in D5% in Water 250 ML IVPB ONE ×2 (22:08→23:18)
[2017-06-16] MEDS ORDERED: 0.9 % Sodium Chloride 1,000 ML IVC SCH (22:15)
--- NOTE | 2017-06-16 22:19 | Emergency Department Note ---
Disposition Clinical Impression: Community acquired pneumonia, Acute exacerbation of chronic obstructive airways disease, DM type 2 (diabetes mellitus, type 2) Disposition: Admitted As Inpatient Condition: Fair Time of Disposition: 02:04 SOB HPI - General Chief Complaint: ED Shortness of Breath/Dyspnea Stated Complaint: Chest Congestion Time Seen by Provider: 06/16/17 21:55 Source: patient, EMS Mode of arrival: EMS Limitations: no limitations Nursing Notes Reviewed: Yes Vital Signs Reviewed: Yes - History of Present Illness Sensation states she is having shortness of breath cough and congestion patient states she was sitting at her computer when she got short of breath and was having rib pain hurts to breathe and hurts to move recently been treated with anabiotic's for an upper respiratory cold she denies diarrhea melena hematochezia or hematemesis denies numbness tingling weakness currently is taking an antibiotic and cough medication she has diarrhea states that she is dyspneic with activity Family calls and states they wanted her admitted for 3 days so that she can be admitted to a nursing care facility and they will also make sure that we did all the appropriate testing for the patient by requesting us checking her CO2 because her level is high. She just had a hospitaliztion for CO narcosis per records. Pt Subjective Complaint: shortness of breath Onset (ago): day(s) Context: recent illness, medication noncompliance Severity: severe Consistency/Duration: constant, gradually worsening Improves with: nothing Worsens with: exertion Known history of: COPD, recurrent pneumonia Associated symptoms: Reports: pain with inspiration, fever, cough, wheezing, sputum production. Denies: chest pain, orthopnea, lower extremity pain, polyuria, polydipsia, parasthesias, palpitations, hemoptysis, diaphoresis, nausea/vomiting, syncope, abdominal pain, rash, sense of impending doom - Related Data Home Medications Medication Instructions Recorded Confirmed Budesonide/Formoterol 80/4.5 1 puff IH HS 06/06/16 05/28/17 [Symbicort 80/4.5] Duloxetine HCl [Cymbalta] 60 mg PO HS 06/06/16 05/28/17 Ergocalciferol (VITAMIN D2) 50,000 unit PO WD 06/06/16 05/28/17 [Vitamin D2] Ezetimibe [Zetia] 10 mg PO QAM 06/06/16 05/28/17 Gabapentin [Neurontin] 600 mg PO DAILY 06/06/16 05/28/17 HYDROcodone/Acet 7.5/325 mg [[place] 1 tab PO TID PRN 06/06/16 05/28/17 7.5-325 mg] Metoprolol [Lopressor] 100 mg PO BID 06/06/16 05/28/17 Omeprazole 40 mg PO QAM 06/06/16 05/28/17 Promethazine [Phenergan] 25 mg PO Q6HR PRN 06/06/16 05/28/17 Albuterol Sulfate [Proair Hfa] 2 puff IH Q4H PRN 10/06/16 05/28/17 Atorvastatin [Lipitor] 10 mg PO HS 10/06/16 05/28/17 Lactulose 20 gm PO DAILY PRN 10/06/16 05/28/17 Methylphenidate HCl [Ritalin] 15 mg PO 0800,1200 10/06/16 05/28/17 Previous Rx's Medication Instructions Recorded Cyanocobalamin (B-12) [Vitamin B12] 1,000 mcg PO DAILY #30 tablet 06/10/16 Folic Acid 1 mg PO DAILY #30 tablet 06/10/16 Metformin HCl [Glucophage] 500 mg PO BID #0 06/10/16 Alprazolam [Alprazolam Xr] 0.5 mg PO BID PRN #0 05/30/17 Ascorbic Acid [Vitamin C] 500 mg PO DAILY #30 tablet.er 05/30/17 Aspirin [Lo-Dose Aspirin EC] 81 mg PO DAILY 365 Days tablet. 05/30/17 Ferrous Sulfate 325 mg PO DAILY #30 tablet 05/30/17 Lactobacillus [Culturelle] 1 each PO BID #6 cap.sprink 05/30/17 Magnesium Oxide [Mag-Ox] 400 mg PO BID #14 tablet 05/30/17 levoFLOXacin [Levaquin] 500 mg PO DAILY #3 tablet 05/30/17 Allergies Allergy/AdvReac Type Severity Reaction Status Date / Time Sulfa (Sulfonamide Allergy Rash Verified 10/06/16 11:02 Antibiotics) codeine AdvReac Agitated Verified 10/06/16 11:02 morphine AdvReac Agitated Verified 10/06/16 11:02 All systems ED: reviewed and negative except as stated. Review of Systems: As Per HPI Constitutional: Reports: fever, chills, weakness Eyes: Denies: eye pain, eye discharge ENT ED: Reports: congestion. Denies: ear pain, throat pain Cardiovascular: Denies: chest pain, palpitations Respiratory: Reports: cough, dyspnea, wheezes Gastrointestinal: Denies: abdominal pain, nausea, vomiting Genitourinary: Denies: urgency, dysuria, frequency Musculoskeletal: Denies: back pain Integumentary: Denies: rash, abrasion Neurological: Denies: headache Psychiatric: Denies: anxiety Endocrine: Denies: fatigue Hematological/Lymphatic: Denies: easy bleeding Allergic/Immunologic: Denies: facial swelling Past Medical History - Past Medical History Attestation: Yes The following information was validated with the patient. 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 history - Social History Smoking Status: Current every day smoker Smokeless Tobacco Status: No Alcohol use: Reports: rarely Drug use: Reports: none Physical Exam - General Limitations: no limitations, other (refusing to cooperate) General appearance: alert, in no apparent distress, anxious - Head Head exam: atraumatic, normocephalic, normal inspection - Eye Eye exam: Present: normal appearance, PERRL, EOMI - ENT ENT exam: normal exam, normal oropharynx, mucous membranes moist, normal external ear exam - Neck Neck exam: Present: normal inspection, full ROM, trachea midline - Chest Chest inspection: Present: normal inspection, symmetric chest wall rise - Respiratory Respiratory exam: Present: wheezes, accessory muscle use, prolonged expiratory phase - Cardiovascular Cardiovascular exam: Present: regular rate, normal rhythm, normal heart sounds - Abdominal Exam Abdominal exam: Present: soft, Non-Tender, normal bowel sounds. Absent: mass, pulsatile mass - Extremities Exam Extremities exam: Present: normal inspection, full ROM, normal capillary refill. Absent: tenderness, pedal edema, joint swelling, calf tenderness - Expanded Lower Extremity Exam Neurovascular/Tendon exam: Present: normal capillary refill, normal fine/light touch Gait: observed and normal - Back Exam Back exam: Present: normal inspection, full ROM. Absent: muscle spasm - Neurological Exam Neurological exam: Present: alert, oriented X3, CN II-XII intact, normal gait - Psychiatric Psychiatric exam: Present: anxious - Skin Skin exam: Present: warm, dry, intact, normal color Course Course Narrative: Ill-appearing 67-year-old female who is noncompliant willing to be cooperative with myself and staffed trying to get her O2 saturations patient sats were better when she was in the seated position and upright than she was when she was laying on her side as a result patient was having repeated treatments which continued to show improvement and she is bringing up copious amounts of green phlegm as result patient was then transferred to [facility] on IV antibiotics to see if this will improve patient was transferred sats were 93-94% at the time of transfer improved Vital Signs O2 Sat by Pulse Oximetry 94 06/16/17 21:49 Temperature 99.5 F 06/16/17 22:05 Pulse Rate 103 06/17/17 00:45 Respiratory Rate 34 06/17/17 01:33 Blood Pressure 112/69 06/17/17 01:05 O2 Sat by Pulse Oximetry 84 06/17/17 01:33 Oxygen Delivery Oxygen Delivery Nasal Cannula Shortness of Breath/Dyspnea - Differential Diagnosis Likely: acute exacerbation of chronic obstructive airways disease, pneumonia - Medical Records Medical records reviewed: Yes I reviewed the patient's medical records. - Lab Data Lab results reviewed: Yes I reviewed the patient's lab results. Result diagrams: 06/16/17 23:00 06/16/17 23:00 Lab Results 06/16/17 06/16/17 06/16/17 Range/Units 22:51 23:00 23:00 WBC 11.2 H (4.3-11.1) K/mcL RBC 3.86 (3.82-4.97) M/mcL Hgb 10.1 L (11.5-15.4) g/dL Hct 34.3 L (35.3-44.9) % MCV 88.9 (83.0-100.0) fL MCH 26.2 L (28.0-33.3) pg MCHC 29.4 L (31.6-35.5) g/dL RDW 15.0 H (11.5-14.5) % Plt Count 373 (140-400) K/mcL MPV 9.0 L (9.4-12.4) fL Immature Gran % 0.6 (0-4) % Seg Neutrophils % 78.4 % Lymphocytes % 14.4 % Monocytes % 5.5 % Eosinophils % 0.8 % Basophils % 0.3 % Neutrophils # 8.8 (1.6-8.9) K/mcL Lymphocytes # 1.6 (0.6-4.6) K/mcL Monocytes # 0.6 (0.0-1.3) K/mcL Eosinophils # 0.1 (0.0-0.6) K/mcL Basophils # 0.0 (0.0-0.2) K/mcL PT 13.8 H (9.4-12.1) Seconds INR 1.3 APTT 20.5 L (26.0-36.0) Seconds Sample Site R Radial ABG pH 7.37 (7.32-7.45) pH Units ABG pCO2 68 H (35-45) mmHg ABG pO2 57 L (85-104) mmHg ABG HCO3 39 H (21-27) mEq/L ABG Total CO2 41 H (20-26) mEq/L ABG O2 Saturation 87 L (95-98) % ABG Base Excess 11 H (-2 to 3) mEq/L Carter Test Positive Inspired O2 32.0 (1-15=lpm fg58-247=%) Sodium (136-145) mEq/L Potassium (3.5-4.5) mEq/L Chloride (98-109) mEq/L Carbon Dioxide (19-29) mEq/L BUN (7-20) mg/dL Creatinine (0.57-1.11) mg/dL Est GFR ( Amer) (> 60) Est GFR (Non-Af Amer) (> 60) BUN/Creatinine Ratio (6-26) Glucose (70-99) mg/dL Calculated Osmolality (280-300) Calcium (8.6-10.8) mg/dL Total Bilirubin (0.2-1.2) mg/dL AST (5-34) Units/L ALT (0-55) Units/L Alkaline Phosphatase (38-126) Units/L Troponin I (0-0.03) ng/mL Serum Total Protein (6.0-8.3) g/dL Albumin (3.5-5.0) g/dL Globulin (2.4-3.5) g/dL Albumin/Globulin Ratio (1.1-2.2) 06/16/17 06/16/17 Range/Units 23:00 23:00 WBC (4.3-11.1) K/mcL RBC (3.82-4.97) M/mcL Hgb (11.5-15.4) g/dL Hct (35.3-44.9) % MCV (83.0-100.0) fL MCH (28.0-33.3) pg MCHC (31.6-35.5) g/dL RDW (11.5-14.5) % Plt Count (140-400) K/mcL MPV (9.4-12.4) fL Immature Gran % (0-4) % Seg Neutrophils % % Lymphocytes % % Monocytes % % Eosinophils % % Basophils % % Neutrophils # (1.6-8.9) K/mcL Lymphocytes # (0.6-4.6) K/mcL Monocytes # (0.0-1.3) K/mcL Eosinophils # (0.0-0.6) K/mcL Basophils # (0.0-0.2) K/mcL PT (9.4-12.1) Seconds INR APTT (26.0-36.0) Seconds Sample Site ABG pH (7.32-7.45) pH Units ABG pCO2 (35-45) mmHg ABG pO2 (85-104) mmHg ABG HCO3 (21-27) mEq/L ABG Total CO2 (20-26) mEq/L ABG O2 Saturation (95-98) % ABG Base Excess (-2 to 3) mEq/L Carter Test Inspired O2 (1-15=lpm sa95-571=%) Sodium 142 (136-145) mEq/L Potassium 4.9 H (3.5-4.5) mEq/L Chloride 96 L (98-109) mEq/L Carbon Dioxide 36 H (19-29) mEq/L BUN 12 (7-20) mg/dL Creatinine 0.59 (0.57-1.11) mg/dL Est GFR ( Amer) > 60 (> 60) Est GFR (Non-Af Amer) > 60 (> 60) BUN/Creatinine Ratio 20 (6-26) Glucose 101 H (70-99) mg/dL Calculated Osmolality 294 (280-300) Calcium 10.2 (8.6-10.8) mg/dL Total Bilirubin 0.4 (0.2-1.2) mg/dL AST 28 (5-34) Units/L ALT 95 H (0-55) Units/L Alkaline Phosphatase 124 (38-126) Units/L Troponin I 0.02 (0-0.03) ng/mL Serum Total Protein 6.4 (6.0-8.3) g/dL Albumin 2.1 L (3.5-5.0) g/dL Globulin 4.3 H (2.4-3.5) g/dL Albumin/Globulin Ratio 0.5 L (1.1-2.2) - Radiology Data Radiology results reviewed: Yes I reviewed the patient's radiology results. ITS Impressions Chest X-Ray 06/16/17 22:08 IMPRESSION: 1. New right lung base consolidation with possible small effusion. Findings are worrisome for pneumonia. 2. Minimal additional left basilar atelectasis or consolidation. 3. Mild diffuse interstitial prominence or vascular congestion. D/ / 06/16/2017 22:53:58 Beny Sellers MD / mindy Interpreting Provider: Beny Sellers MD Critical Care Time Critical Care Time: No
[2017-06-16 22:56] LABS: ABG Base Excess 11 mEq/L (-2 to 3); ABG HCO3 39 mEq/L (21-27); ABG Oxygen Saturation 87 % (95-98); ABG PCO2 68 mmHg (35-45); ABG PH 7.37 pH Units (7.32-7.45); ABG PO2 57 mmHg (85-104); ABG TCO2 41 mEq/L (20-26)
[2017-06-16 23:06] LABS: Basophils % 0.3 %; Eosinophils # 0.1 K/mcL (0.0-0.6); Eosinophils % 0.8 %; Hematocrit 34.3 % (35.3-44.9); Hemoglobin 10.1 g/dL (11.5-15.4); Immature Granulocytes % 0.6 % (0-4); Lymphocytes # 1.6 K/mcL (0.6-4.6); Lymphocytes % 14.4 %; Mean Corpuscular HGB Conc 29.4 g/dL (31.6-35.5); Mean Corpuscular Hemoglobin 26.2 pg (28.0-33.3); Mean Corpuscular Volume 88.9 fL (83.0-100.0); Monocytes # 0.6 K/mcL (0.0-1.3); Monocytes % 5.5 %; Neutrophils # 8.8 K/mcL (1.6-8.9); Platelet Count 373 K/mcL (140-400); Red Blood Count 3.86 M/mcL (3.82-4.97); Segmented Neutrophils % 78.4 %
[2017-06-16 23:13] LABS: INR 1.3; Prothrombin Time 13.8 Seconds (9.4-12.1)
[2017-06-16 23:26] LABS: Alanine Aminotransferase 95 Units/L (0-55); Albumin 2.1 g/dL (3.5-5.0); Albumin/Globulin Ratio 0.5 (1.1-2.2); Alkaline Phosphatase 124 Units/L (38-126); Aspartate Amino Transferase 28 Units/L (5-34); BUN/Creatinine Ratio 20 (6-26); Bilirubin,Total 0.4 mg/dL (0.2-1.2); Blood Urea Nitrogen 12 mg/dL (7-20); Calcium 10.2 mg/dL (8.6-10.8); Carbon Dioxide 36 mEq/L (19-29); Chloride 96 mEq/L (98-109); Globulin 4.3 g/dL (2.4-3.5); Glucose 101 mg/dL (70-99); Osmolality,Calculated 294 (280-300); Potassium 4.9 mEq/L (3.5-4.5); Sodium 142 mEq/L (136-145); Total Protein 6.4 g/dL (6.0-8.3); eGFR For African Americans > 60 (> 60); eGFR For Non-African Americans > 60 (> 60)
[2017-06-16 23:51] LABS: Activated Partial Thrombo Time 20.5 Seconds (26.0-36.0)
[2017-06-17] MEDS ORDERED: Ipratropium/Albuterol Neb 3 ML IH STA (00:22)
[2017-06-17] MEDS ORDERED: Acetaminophen 325 MG TABLET PO PRN (01:21)
[2017-06-17] MEDS ORDERED: Ibuprofen 400 MG TABLET PO PRN (01:21)
[2017-06-17] MEDS ORDERED: Naloxone 0.4 MG/ML INJ IVP PRN (01:21)
[2017-06-17] MEDS ORDERED: *HR* Dextrose 50 % in Water (Syg) 50 ML SYRINGE IVP PRN (01:21)
[2017-06-17] MEDS ORDERED: Lactulose Oral Soln 20 GM/30 ML UDC PO PRN (01:21)
[2017-06-17] MEDS ORDERED: Azithromycin 500 MG in D5% in Water 250 ML IVPB ONE (01:21)
[2017-06-17] MEDS ORDERED: D5% in Water 1,000 ML IVC PRN (01:21)
[2017-06-17] MEDS ORDERED: *HR* HYDROcodone/Acet 7.5/325 mg TABLET PO PRN (01:21)
[2017-06-17] MEDS ORDERED: 0.9 % Sodium Chloride 1,000 ML IVC SCH (01:21)
[2017-06-17] MEDS ORDERED: Dextrose Gel 15 GM PO PRN ×2 (01:21)
[2017-06-17] MEDS ORDERED: Ondansetron 4 MG/2 ML VIAL IVP PRN (01:21)
[2017-06-17] MEDS: MethylPREDNISolone 40 MG/ML VIAL IVP SCH ×3 (04:44→13:39)
[2017-06-17] MEDS: Ipratropium/Albuterol Neb 3 ML IH SCH ×2 (05:10→12:24)
[2017-06-17 06:55] LABS: Basophils % 0.2 %; Hematocrit 34.6 % (35.3-44.9); Hemoglobin 10.2 g/dL (11.5-15.4); Immature Granulocytes % 0.6 % (0-4); Lymphocytes # 0.5 K/mcL (0.6-4.6); Lymphocytes % 5.3 %; Mean Corpuscular HGB Conc 29.5 g/dL (31.6-35.5); Mean Corpuscular Volume 88.3 fL (83.0-100.0); Mean Platelet Volume 9.5 fL (9.4-12.4); Monocytes # 0.1 K/mcL (0.0-1.3); Monocytes % 1.5 %; Neutrophils # 8.5 K/mcL (1.6-8.9); Platelet Count 393 K/mcL (140-400); Red Blood Count 3.92 M/mcL (3.82-4.97); Red Cell Distribution Width 15.1 % (11.5-14.5); Segmented Neutrophils % 92.4 %
[2017-06-17 07:12] LABS: BUN/Creatinine Ratio 17 (6-26); Blood Urea Nitrogen 11 mg/dL (7-20); Calcium 10.1 mg/dL (8.6-10.8); Carbon Dioxide 34 mEq/L (19-29); Chloride 95 mEq/L (98-109); Glucose 143 mg/dL (70-99); Osmolality,Calculated 292 (280-300); Potassium 5.1 mEq/L (3.5-4.5); Sodium 140 mEq/L (136-145); eGFR For African Americans > 60 (> 60); eGFR For Non-African Americans > 60 (> 60)
[2017-06-17] MEDS: *HR* Metformin 500 MG TABLET PO SCH ×2 (08:33→21:28)
[2017-06-17] MEDS: Ascorbic Acid 500 MG TABLET PO SCH (08:33)
[2017-06-17] MEDS: Aspirin Enteric Coated 81 MG Tablet PO SCH (08:33)
[2017-06-17] MEDS: Lactobacillus 1 EACH CAP.SPRINK PO SCH ×2 (08:34→21:26)
[2017-06-17] MEDS: Cyanocobalamin (B-12) 1,000 MCG TABLET PO SCH (08:34)
[2017-06-17] MEDS: Folic Acid 1 MG TABLET PO SCH (08:34)
[2017-06-17] MEDS: Magnesium Oxide 400 MG TABLET PO SCH ×2 (08:34→21:28)
[2017-06-17] MEDS: Insulin LISPRO 300 UNITS/3 ML VIAL SQ SCH ×3 (08:35→18:19)
[2017-06-17] MEDS: Gabapentin 300 MG CAPSULE PO SCH (08:35)
[2017-06-17] MEDS: Albuterol 2.5 MG/3 ML NEBULIZER IH PRN ×3 (08:55→21:07)
[2017-06-17] MEDS: *HR* HYDROcodone/Acet 5/325 mg TABLET PO PRN (09:14)
[2017-06-17] MEDS: Methylphenidate HCl 5 MG TABLET PO SCH ×2 (09:15→13:39)
[2017-06-17] MEDS: (Ezetimibe [Zetia] 10 MG) PO SCH (09:15)
--- NOTE | 2017-06-17 15:02 | Internal Med History&Physical ---
Date of Encounter: 06/17/17 Time of Encounter: 14:40 Assessment and Plan (1) Community acquired pneumonia Current visit: Yes Status: Acute She was given Rocephin and Zithromax in the emergency room. These will be continued with lactobacillus. Qualifiers: Laterality: right Lung location: lower lobe of lung Qualified Code(s): J18.1 - Lobar pneumonia, unspecified organism (2) Acute exacerbation of chronic obstructive airways disease Current visit: Yes Status: Acute Continue Symbicort and prn nebulizer treatments (3) Anemia Current visit: No Status: Acute We will recheck iron studies in a.m. Qualifiers: Anemia type: unspecified type Qualified Code(s): D64.9 - Anemia, unspecified (4) DM type 2 (diabetes mellitus, type 2) Current visit: Yes Status: Chronic Hemoglobin A1c was 5.3% on 11/16/2016. Qualifiers: Diabetes mellitus complication status: with unspecified complications Diabetes mellitus mcfp insulin use: without terminal clerk use Qualified Code( s): E11.8 - Type 2 diabetes mellitus with unspecified complications (5) Lung nodule < 6cm on CT Current visit: No Status: Acute Internal Medicine - H&P: HPI Chief complaint: Dyspnea Admitted From: Emergency Dept Plans for Post Hospital Care: Home History of present illness: Ms. Barnes is a 67 year old female who was brought to the hospital after she had dyspnea and cough onset approximate 5 days previously. She had been seen by home health nursing staff on June 14 and oxygen saturation was reported to be 62%. It gradually improved and she did not come to the hospital. Her dyspnea worsened again so she came to emergency room and was evaluated and was felt to have right lung pneumonia and exacerbation of COPD. She was admitted to [facility] floor for ongoing care needs. She was discharged from [facility] 05/30/2017 following admission 05/28/2017 for respiratory failure and exacerbation of COPD. She continued to smoke after discharge. She has smoked since age 13 up to 1 pack per day. She wears oxygen at home 29/01 except to smoke. She denies PFTs. 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 Past Med Surg Social Fam HX - Past Medical History Medical history: arthritis, asthma, CHF, COPD, GERD, hyperlipidemia, hypertension, myocardial infarction Psychiatric history: anxiety, depression - Past Surgical History Surgical History: appendectomy, breast surgery, cholecystectomy, hysterectomy, orthopedic, other, other - Social History Smoking Status: Current every day smoker Smokeless Tobacco Status: No Alcohol use: rarely Drug use: none - Family History Mother Living Status: Hx Family Cancer: Yes Father Living Status: Hx Family Cancer: Yes (bone) Internal Medicine - H&P: Meds Budesonide/Formoterol 80/4.5 [Symbicort 80/4.5] 1 puff IH HS 06/06/16 [History] Duloxetine HCl [Cymbalta] 60 mg PO HS 06/06/16 [History] Ergocalciferol (VITAMIN D2) [Vitamin D2] 50,000 unit PO WD 06/06/16 [History] Ezetimibe [Zetia] 10 mg PO QAM 06/06/16 [History] Gabapentin [Neurontin] 600 mg PO DAILY 06/06/16 [History] HYDROcodone/Acet 7.5/325 mg [[place] 7.5-325 mg] 1 tab PO TID PRN 06/06/16 [ History] Metoprolol [Lopressor] 100 mg PO BID 06/06/16 [History] Omeprazole 40 mg PO QAM 06/06/16 [History] Promethazine [Phenergan] 25 mg PO Q6HR PRN 06/06/16 [History] Cyanocobalamin (B-12) [Vitamin B12] 1,000 mcg PO DAILY #30 tablet 06/10/16 [Rx] Folic Acid 1 mg PO DAILY #30 tablet 06/10/16 [Rx] Metformin HCl [Glucophage] 500 mg PO BID #0 06/10/16 [Rx] Albuterol Sulfate [Proair Hfa] 2 puff IH Q4H PRN 10/06/16 [History] Atorvastatin [Lipitor] 10 mg PO HS 10/06/16 [History] Lactulose 20 gm PO DAILY PRN 10/06/16 [History] Methylphenidate HCl [Ritalin] 15 mg PO 0800,1200 10/06/16 [History] Alprazolam [Alprazolam Xr] 0.5 mg PO BID PRN #0 05/30/17 [Rx] Ascorbic Acid [Vitamin C] 500 mg PO DAILY #30 tablet.er 05/30/17 [Rx] Aspirin [Lo-Dose Aspirin EC] 81 mg PO DAILY 365 Days tablet. 05/30/17 [Rx] Ferrous Sulfate 325 mg PO DAILY #30 tablet 05/30/17 [Rx] Lactobacillus [Culturelle] 1 each PO BID #6 robin 05/30/17 [Rx] Magnesium Oxide [Mag-Ox] 400 mg PO BID #14 tablet 05/30/17 [Rx] levoFLOXacin [Levaquin] 500 mg PO DAILY #3 tablet 05/30/17 [Rx] 3 Allergy/AdvReac Type Severity Reaction Status Date / Time Sulfa (Sulfonamide Allergy Rash Verified 10/06/16 11:02 Antibiotics) codeine AdvReac Agitated Verified 10/06/16 11:02 morphine AdvReac Agitated Verified 10/06/16 11:02 All Systems PM: A 10-system review of systems was performed and is negative for pertinent findings except as documented above in the HPI. Review of systems: Review of systems from her May 2017 [facility] hospitalization were reviewed and revised as below. Gen.: Her weight has increased minimally from 89.539 kg on 06/10/2016 to 91.172 kg 05/28/2017 admission but decreased to 72.575 kg (?) on admission now Cardiovascular: She has history of hypertension. Denies [place] heart failure angina DVT or pulmonary embolus. She had an echocardiogram at [facility] 08/01/2014 which showed LVEF of 70%. There was mild diastolic dysfunction reported with E/ A ratio 0.7. There was mild tricuspid regurgitation present. She had a left heart catheter done at [facility] 08/03/2014 which showed 50% stenosis in the mid RCA , 30% stenosis in the mid circumflex and 40% stenosis in the first marginal branch of the circumflex. There was 30% stenosis in the proximal LAD and 40% stenosis in the mid LAD. The LMCA was angiographically free of disease. The LVEF was 65%. Respiratory: As per history of present illness GI: She has had cholecystectomy. She has GERD. She denies disorders of her liver or exocrine pancreas. : She had hematuria in the past which resolved. She denies other kidney or bladder disorders. Neurologic: She denies large distribution strokes or seizures. She has diabetic peripheral neuropathy Endocrine: She was diagnosed with DM 2 approximately 2006. She has hyperlipidemia and hypothyroidism history but does not take levothyroxin. Hematology/oncology: She had anemia found on emergency room blood work last admission. Anemia workup showed iron 23, transferrin saturation 7%, transferrin 220, ferritin 119, B12 463, and folate 15.7. She was prescribed ferrous sulfate and vitamin C at discharge. She denies internal malignancies. She had a benign right breast lump removed several years ago. Psychiatric: She has anxiety depression but denies other mental health issues Musk skeletal: She has DJD. She complains of chronic low back pain today. She denies gout. - Constitutional Vitals: Temp Pulse Resp BP Pulse Ox 98.5 F 77 18 97/61 90 06/17/17 10:25 06/17/17 10:25 06/17/17 12:25 06/17/17 10:25 06/17/17 12:25 Exam: Gen.: She is a well developed well-nourished female lying in bed who appears in no severe distress. She complained of pain in her lower back. HEENT: Head is atraumatic and normocephalic. Eyes: EOMI. There is no scleral icterus. Mouth: Mucosa is moist. Neck: Supple and nontender. There is no thyromegaly or adenopathy noted. Heart: Regular without murmurs gallops or ectopics Lungs: She has diminished breath sounds diffusely. No wheezes or crackles are heard. Abdomen: Soft and nontender. No masses or guarding are noted. Extremities: There is no cyanosis edema or clubbing noted. Dorsalis pedis and posterior tibial pulses are trace palpable bilaterally. Neurologic: Mental status: She is lethargic but does awaken and answer a few questions. Cranial nerves: Smile is symmetric. Forehead wrinkles bilaterally. Tongue protrudes midline. EOMI. Motor: There is no pronator drift. Cerebellar: Finger to nose is intact bilaterally. Skin: Warm and dry Internal Med - H&P Results - Labs CBC & Chem 7: 06/17/17 05:15 06/17/17 05:15 Labs: Short CBC 06/17/17 Range/Units 05:15 WBC 9.3 (4.3-11.1) K/mcL Hgb 10.2 L (11.5-15.4) g/dL Hct 34.6 L (35.3-44.9) % Plt Count 393 (140-400) K/mcL Neutrophils # 8.5 (1.6-8.9) K/mcL [facility] 06/17/17 05:15 Sodium 140 Potassium 5.1 H Chloride 95 L Carbon Dioxide 34 H BUN 11 Creatinine 0.63 Glucose 143 H Calcium 10.1
[2017-06-17] MEDS: cefTRIAXone 1,000 MG in Water for inj. (sterile) 10 ML IVP SCH (18:20)
[2017-06-17] MEDS: Azithromycin 500 MG in D5% in Water 250 ML IVPB SCH (18:21)
[2017-06-17] MEDS: ALPRAZolam 0.5 MG TABLET PO PRN (19:02)
[2017-06-17] MEDS: Budesonide/Formoterol 80/4.5 MDI IH SCH (21:07)
[2017-06-18 05:54] LABS: Basophils % 0.2 %; Eosinophils % 0.1 %; Hematocrit 31.2 % (35.3-44.9); Hemoglobin 9.2 g/dL (11.5-15.4); Immature Granulocytes % 0.7 % (0-4); Lymphocytes # 2.1 K/mcL (0.6-4.6); Lymphocytes % 19.9 %; Mean Corpuscular HGB Conc 29.5 g/dL (31.6-35.5); Mean Corpuscular Hemoglobin 25.7 pg (28.0-33.3); Mean Corpuscular Volume 87.2 fL (83.0-100.0); Mean Platelet Volume 9.2 fL (9.4-12.4); Monocytes # 0.5 K/mcL (0.0-1.3); Monocytes % 4.6 %; Neutrophils # 7.8 K/mcL (1.6-8.9); Platelet Count 374 K/mcL (140-400); Red Blood Count 3.58 M/mcL (3.82-4.97); Segmented Neutrophils % 74.5 %
[2017-06-18 06:21] LABS: BUN/Creatinine Ratio 25 (6-26); Blood Urea Nitrogen 16 mg/dL (7-20); Calcium 9.7 mg/dL (8.6-10.8); Carbon Dioxide 31 mEq/L (19-29); Chloride 98 mEq/L (98-109); Glucose 98 mg/dL (70-99); Osmolality,Calculated 289 (280-300); Potassium 5.1 mEq/L (3.5-4.5); Sodium 139 mEq/L (136-145); eGFR For African Americans > 60 (> 60); eGFR For Non-African Americans > 60 (> 60)
[2017-06-18] MEDS: Ascorbic Acid 500 MG TABLET PO SCH (08:16)
[2017-06-18] MEDS: Gabapentin 300 MG CAPSULE PO SCH (08:16)
[2017-06-18] MEDS: Lactobacillus 1 EACH CAP.SPRINK PO SCH ×2 (08:16→20:07)
[2017-06-18] MEDS: Aspirin Enteric Coated 81 MG Tablet PO SCH (08:16)
[2017-06-18] MEDS: *HR* Metformin 500 MG TABLET PO SCH ×2 (08:17→20:07)
[2017-06-18] MEDS: Magnesium Oxide 400 MG TABLET PO SCH ×2 (08:17→20:06)
[2017-06-18] MEDS: Cyanocobalamin (B-12) 1,000 MCG TABLET PO SCH (08:17)
[2017-06-18] MEDS: Folic Acid 1 MG TABLET PO SCH (08:17)
[2017-06-18] MEDS: Methylphenidate HCl 5 MG TABLET PO SCH ×2 (08:50→18:02)
[2017-06-18] MEDS: Insulin LISPRO 300 UNITS/3 ML VIAL SQ SCH ×3 (08:50→18:03)
[2017-06-18 09:02] LABS: ABG Base Excess 9 mEq/L (-2 to 3); ABG HCO3 38 mEq/L (21-27); ABG Oxygen Saturation 93 % (95-98); ABG PCO2 72 mmHg (35-45); ABG PH 7.33 pH Units (7.32-7.45); ABG PO2 75 mmHg (85-104); ABG TCO2 40 mEq/L (20-26); Blood Gas Respiration Rate 16
--- NOTE | 2017-06-18 09:59 | Internal Med Progress Note ---
Date of Encounter: 06/18/17 Time of Encounter: 09:45 - Assessment and plan (1) Community acquired pneumonia Current Visit: Yes Status: Acute Assessment and plan: June 18. Continue Rocephin, Zithromax, and lactobacillus. Anticipate discharge home tomorrow if stable. Qualifiers: Laterality: right Lung location: lower lobe of lung Qualified Code(s): J18.1 - Lobar pneumonia, unspecified organism (2) Acute exacerbation of chronic obstructive airways disease Current Visit: Yes Status: Acute Assessment and plan: June 18. Continue Symbicort and prn nebulizer treatments (3) Anemia Current Visit: No Status: Acute Assessment and plan: June 18. Hemoglobin has decreased to 9.2. Iron studies are pending. Qualifiers: Anemia type: unspecified type Qualified Code(s): D64.9 - Anemia, unspecified (4) DM type 2 (diabetes mellitus, type 2) Current Visit: Yes Status: Chronic Assessment and plan: June 18. Hemoglobin A1c was 5.3% on 11/16/2016. Blood sugars have been elevated but she was getting Solu-Medrol through emergency room. It has been discontinued. Will check hemoglobin A1c today. Qualifiers: Diabetes mellitus complication status: with unspecified complications Diabetes mellitus penitentiary insulin use: without dedicated intermodal truck driver use Qualified Code( s): E11.8 - Type 2 diabetes mellitus with unspecified complications (5) Lung nodule < 6cm on CT Current Visit: No Status: Acute Assessment and plan: June 18. Chest CT on 05/28/2017 showed small nodules in the left upper lobe up to 4 mm diameter. Recommended follow-up chest CT in 12 months. (6) Hypomagnesemia Current Visit: Yes Status: Acute Assessment and plan: June 18. Magnesium level returned low at 1.0 despite use of oral magnesium oxide. We will give IV magnesium sulfate today and recheck level in a.m. (7) Elevated brain natriuretic peptide (BNP) level Current Visit: Yes Status: Acute Assessment and plan: June 18. Echocardiogram 08/01/2014 showed LVEF of 70% with mild diastolic dysfunction. Will continue metoprolol and add low dose Bumex and Imdur. Recheck labs in a.m. - Subjective Interval history: June 18. She has no new complaints and feels better. - Constitutional Vitals: Temp Pulse Resp BP Pulse Ox 97.7 F 62 21 115/66 95 06/18/17 06:36 06/18/17 06:36 06/18/17 06:36 06/18/17 06:36 06/18/17 06:36 Exam: She is resting comfortably in bed and appears in no acute distress. She is much more alert and talkative today. Her affect is bright and cheerful. Reviewed her medications and lab results. Internal Medicine: Result - Labs CBC & Chem 7: 06/18/17 04:55 06/18/17 04:55 Labs: Short CBC 06/18/17 Range/Units 04:55 WBC 10.4 (4.3-11.1) K/mcL Hgb 9.2 L (11.5-15.4) g/dL Hct 31.2 L (35.3-44.9) % Plt Count 374 (140-400) K/mcL Neutrophils # 7.8 (1.6-8.9) K/mcL BMP 06/18/17 04:55 Sodium 139 Potassium 5.1 H Chloride 98 Carbon Dioxide 31 H BUN 16 Creatinine 0.64 Glucose 98 Calcium 9.7 - ABG Interpretation ABG results: ABG ABG pH 7.33 pH Units (7.32-7.45) 06/18/17 08:57 ABG pCO2 72 mmHg (35-45) H* 06/18/17 08:57 ABG pO2 75 mmHg (85-104) L 06/18/17 08:57 ABG O2 Saturation 93 % (95-98) L 06/18/17 08:57 PT/INR, D-dimer PT 13.8 Seconds (9.4-12.1) H 06/16/17 23:00 Consult Discharge Plan - Plan Referrals: Ji Loya MD [Primary Care Provider] - 1 week
[2017-06-18] MEDS ORDERED: Magnesium Sulfate 1 GM in D5% in Water 100 ML IVPB ONE (10:04)
[2017-06-18 10:15] LABS: % Iron Saturation 11 % (15-50); Iron 28 mcg/dL (50-170); Transferrin 190 mg/dL (180-382)
[2017-06-18 10:28] LABS: Ferritin 184 ng/ml (5-204)
[2017-06-18] MEDS: (Ezetimibe [Zetia] 10 MG) PO SCH (11:23)
[2017-06-18] MEDS: Bumetanide 1 MG TABLET PO SCH (11:28)
[2017-06-18] MEDS: Isosorbide MONOnitrate (24 HR) 30 MG TAB.ER.24H PO SCH (11:29)
[2017-06-18 13:40] LABS: Hemoglobin A1C 5.1 %
--- NOTE | 2017-06-18 15:06 | Electrocardiograph Report ---
[address] [address] Test Date: 2017-06-16 Pat Name: Radha Barnes Department: [id number] Room: [facility] Gender: F Rad Tech: Solitario : 1950 Requested By: Rosa Boswell Order Number: [id number] Reading MD: Cipriano Avila Measurements Intervals [place] Rate: 91 P: 34 PA: 133 QRS: 48 QRSD: 83 T: 47 QT: 323 QTc: 372 Interpretive Statements SINUS RHYTHM ARTIFACT Electronically Signed On 06-18-2017 15:04:58 EST by Cipriano Avila
[2017-06-18] MEDS: cefTRIAXone 1,000 MG in Water for inj. (sterile) 10 ML IVP SCH (18:11)
[2017-06-18] MEDS: Azithromycin 500 MG in D5% in Water 250 ML IVPB SCH (18:12)
[2017-06-18] MEDS: *HR* HYDROcodone/Acet 5/325 mg TABLET PO PRN (20:06)
[2017-06-18] MEDS: ALPRAZolam 0.5 MG TABLET PO PRN (20:09)
[2017-06-18] MEDS: Albuterol 2.5 MG/3 ML NEBULIZER IH PRN (20:53)
[2017-06-18] MEDS: Budesonide/Formoterol 80/4.5 MDI IH SCH (20:55)
[2017-06-18] MEDS ORDERED: Chloraseptic Spray 177 ML BOTTLE MM PRN (21:48)
[2017-06-19 05:45] LABS: Basophils % 0.4 %; Eosinophils # 0.2 K/mcL (0.0-0.6); Eosinophils % 2.2 %; Hematocrit 31.2 % (35.3-44.9); Immature Granulocytes % 0.5 % (0-4); Lymphocytes # 2.7 K/mcL (0.6-4.6); Lymphocytes % 37.1 %; Mean Corpuscular HGB Conc 28.8 g/dL (31.6-35.5); Mean Corpuscular Hemoglobin 25.9 pg (28.0-33.3); Mean Corpuscular Volume 89.7 fL (83.0-100.0); Mean Platelet Volume 9.4 fL (9.4-12.4); Monocytes # 0.4 K/mcL (0.0-1.3); Monocytes % 5.8 %; Platelet Count 344 K/mcL (140-400); Red Blood Count 3.48 M/mcL (3.82-4.97); Red Cell Distribution Width 15.1 % (11.5-14.5)
[2017-06-19 06:12] LABS: BUN/Creatinine Ratio 25 (6-26); Blood Urea Nitrogen 17 mg/dL (7-20); Calcium 9.7 mg/dL (8.6-10.8); Chloride 95 mEq/L (98-109); Glucose 78 mg/dL (70-99); Magnesium 1.1 mg/dL (1.6-2.6); Osmolality,Calculated 296 (280-300); Potassium 4.9 mEq/L (3.5-4.5); Sodium 143 mEq/L (136-145); eGFR For African Americans > 60 (> 60); eGFR For Non-African Americans > 60 (> 60)
[2017-06-19 06:33] LABS: Carbon Dioxide 40 mEq/L (19-29)
[2017-06-19 06:52] VITALS: BP 101/54
[2017-06-19 07:14] LABS: Hypochromasia Present (Not Present); Microcytosis Present (Not Present)
[2017-06-19] MEDS: Insulin LISPRO 300 UNITS/3 ML VIAL SQ SCH ×2 (07:32→12:09)
[2017-06-19] MEDS ORDERED: *HR* Metformin 500 MG TABLET PO SCH (08:00)
[2017-06-19] MEDS: Lactobacillus 1 EACH CAP.SPRINK PO SCH (08:50)
[2017-06-19] MEDS: Bumetanide 1 MG TABLET PO SCH (08:51)
[2017-06-19] MEDS: Methylphenidate HCl 5 MG TABLET PO SCH ×2 (08:51→12:24)
[2017-06-19] MEDS: Gabapentin 300 MG CAPSULE PO SCH (08:52)
[2017-06-19] MEDS: Aspirin Enteric Coated 81 MG Tablet PO SCH (08:52)
[2017-06-19] MEDS: Ascorbic Acid 500 MG TABLET PO SCH (08:52)
[2017-06-19] MEDS: Isosorbide MONOnitrate (24 HR) 30 MG TAB.ER.24H PO SCH (08:53)
[2017-06-19] MEDS: Folic Acid 1 MG TABLET PO SCH (08:53)
[2017-06-19] MEDS: Cyanocobalamin (B-12) 1,000 MCG TABLET PO SCH (08:53)
[2017-06-19] MEDS: Magnesium Oxide 400 MG TABLET PO SCH (08:53)
[2017-06-19] MEDS: *HR* HYDROcodone/Acet 5/325 mg TABLET PO PRN (12:23)
--- NOTE | 2017-06-19 14:20 | Discharge Summary ---
Date of Encounter: 06/19/17 Time of Encounter: 14:05 - Discharge Diagnosis (1) Community acquired pneumonia Priority: Primary Status: Acute Qualifiers: Laterality: right Lung location: lower lobe of lung Qualified Code(s): J18.1 - Lobar pneumonia, unspecified organism (2) Acute exacerbation of chronic obstructive airways disease Priority: Secondary Status: Acute (3) Anemia Priority: Secondary Status: Acute Qualifiers: Anemia type: unspecified type Qualified Code(s): D64.9 - Anemia, unspecified (4) DM type 2 (diabetes mellitus, type 2) Priority: Secondary Status: Chronic Qualifiers: Diabetes mellitus complication status: with unspecified complications Diabetes mellitus termite treater helper insulin use: without termite treater helper use Qualified Code( s): E11.8 - Type 2 diabetes mellitus with unspecified complications (5) Lung nodule < 6cm on CT Priority: Secondary Status: Acute (6) Hypomagnesemia Priority: Secondary Status: Acute (7) Elevated brain natriuretic peptide (BNP) level Priority: Secondary Status: Acute - Discharge Medications Prescriptions: Cefuroxime PO [Ceftin] 500 mg PO Q12HR #10 tablet Azithromycin [Zithromax] 250 mg PO DAILY #5 tablet Bumetanide 0.5 mg PO Q48H #15 tablet Isosorbide MONOnitrate (24 HR) [Imdur] 30 mg PO DAILY #30 tab.er.24h Lactobacillus [Culturelle] 1 each PO BID #10 cap.sprink Magnesium Oxide [Mag-Ox] 400 mg PO BID #20 tablet Home Medications: Budesonide/Formoterol 80/4.5 [Symbicort 80/4.5] 1 puff IH HS 06/06/16 [History] Duloxetine HCl [Cymbalta] 60 mg PO HS 06/06/16 [History] Ergocalciferol (VITAMIN D2) [Vitamin D2] 50,000 unit PO WD 06/06/16 [History] Ezetimibe [Zetia] 10 mg PO QAM 06/06/16 [History] Gabapentin [Neurontin] 600 mg PO DAILY 06/06/16 [History] HYDROcodone/Acet 7.5/325 mg [[place] 7.5-325 mg] 1 tab PO TID PRN 06/06/16 [ History] Metoprolol [Lopressor] 100 mg PO BID 11/29/16 [History] Omeprazole 40 mg PO QAM 06/06/16 [History] Promethazine [Phenergan] 25 mg PO Q6HR PRN 06/06/16 [History] Cyanocobalamin (B-12) [Vitamin B12] 1,000 mcg PO DAILY #30 tablet 06/10/16 [Rx] Folic Acid 1 mg PO DAILY #30 tablet 06/10/16 [Rx] Metformin HCl [Glucophage] 500 mg PO BID #0 06/10/16 [Rx] Albuterol Sulfate [Proair Hfa] 2 puff IH Q4H PRN 10/06/16 [History] Atorvastatin [Lipitor] 10 mg PO HS 10/06/16 [History] Lactulose 20 gm PO DAILY PRN 10/06/16 [History] Methylphenidate HCl [Ritalin] 15 mg PO 0800,1200 10/06/16 [History] Alprazolam [Alprazolam Xr] 0.5 mg PO BID PRN #0 05/30/17 [Rx] Ascorbic Acid [Vitamin C] 500 mg PO DAILY #30 tablet.er 05/30/17 [Rx] Aspirin [Lo-Dose Aspirin EC] 81 mg PO DAILY 365 Days tablet. 05/30/17 [Rx] Ferrous Sulfate 325 mg PO DAILY #30 tablet 05/30/17 [Rx] Lactobacillus [Culturelle] 1 each PO BID #6 cap.sprink 05/30/17 [Rx] Magnesium Oxide [Mag-Ox] 400 mg PO BID #14 tablet 05/30/17 [Rx] levoFLOXacin [Levaquin] 500 mg PO DAILY #3 tablet 05/30/17 [Rx] Azithromycin [Zithromax] 250 mg PO DAILY #5 tablet 06/19/17 [Rx] Bumetanide 0.5 mg PO Q48H #15 tablet 06/19/17 [Rx] Cefuroxime PO [Ceftin] 500 mg PO Q12HR #10 tablet 06/19/17 [Rx] Isosorbide MONOnitrate (24 HR) [Imdur] 30 mg PO DAILY #30 tab.er.24h 06/19/17 [ Rx] Lactobacillus [Culturelle] 1 each PO BID #10 cap.sprink 06/19/17 [Rx] Magnesium Oxide [Mag-Ox] 400 mg PO BID #20 tablet 06/19/17 [Rx] Allergies/Adverse Reactions: 3 Allergy/AdvReac Type Severity Reaction Status Date / Time Sulfa (Sulfonamide Allergy Rash Verified 10/06/16 11:02 Antibiotics) codeine AdvReac Agitated Verified 10/06/16 11:02 morphine AdvReac Agitated Verified 10/06/16 11:02 Date of admission: 06/17/17 15:12 Primary care physician: Ji Loya MD - Patient Status Disposition: Home, Self-Care Condition: Fair Functional capacity at discharge: independent ambulation Overall status at discharge: patient is progressing back to baseline - Discharge Instructions Follow Up With: Ji Loya MD [Primary Care Provider] - 1 week - Diet and Activity Activity: resume usual activities as tolerated, wear oxygen at all times Diet: advance to your usual diet Hospital course: Ms. Barnes is a 67 year old female who was brought to the hospital after she had dyspnea and cough onset approximate 5 days previously. She had been seen by home health nursing staff on June 14 and oxygen saturation was reported to be 62%. It gradually improved and she did not come to the hospital. Her dyspnea worsened again so she came to emergency room and was evaluated and was felt to have right lung pneumonia and exacerbation of COPD. She was [facility] to [facility] for ongoing care needs. Initial orders were written by the emergency room physician. I saw her on June 17 and performed the history and physical. She required BiPAP intermittently the first 24 hours to maintain satisfactory ventilation. She improved and did not require BiPAP by time of discharge and her saturation remained above 90% on 2-4 L oxygen by nasal cannula. She was given Rocephin and Zithromax for pneumonia. Leukocytosis and left shift resolved by the time of discharge. She will continue with antibiotic and probiotic for 5 additional days at discharge. I strongly encouraged her to become a nonsmoker. Magnesium level returned low at 1.0 on 06/18/2017. She was given 1 g of magnesium sulfate IV. Her magnesium level had risen slightly to 1.1 by the following day. She reports she had been prescribed magnesium oxide previously but had not taken it for extended period of time. She will be restarted on this. Her PCP can monitor her magnesium and other labs. BNP peptide returned slightly elevated 343. She was started on Imdur and Bumex and these will be continued at discharge. Her echocardiogram report from July 2014 was reviewed. Her hemoglobin decreased slightly to 9.0 by day of discharge. Anemia testing showed iron 28, transferrin saturation 11%, transferrin 190, and ferritin 184. She will be prescribed ferrous sulfate with vitamin C. She will be discharged home and follow with her PCP Dr. Ji Loya within 1 week. - Time Spent with Patient Total time spent providing and/or coordinating discharge services: - Constitutional Vitals: Temp Pulse Resp BP Pulse Ox 98.2 F 54 26 101/54 94 06/19/17 06:49 06/19/17 06:49 06/19/17 06:49 06/19/17 06:49 06/19/17 06:49
[2017-06-19] MEDS ORDERED: Azithromycin 500 MG in D5% in Water 250 ML IVPB SCH (19:00)
[2017-06-20] MEDS ORDERED: Cholecalciferol (D-3) 1,000 UNIT TABLET PO SCH (09:00)
== END 2017-06-19 15:30 | disposition home or self-care (01) | DRG 140 ==
LOC: EMEROOPIK 21:49 → INPPIK 21:49
PROVIDERS: ADMIT Internal Medicine; ATTEND Internal Medicine

== ENCOUNTER 2017-08-01 11:11 | Inpatient (IN) ==
--- NOTE | 2017-08-01 11:18 | Emergency Department Note ---
Disposition Clinical Impression: Acute exacerbation of chronic obstructive airways disease Community acquired pneumonia Qualifiers: Laterality: right Lung location: lower lobe of lung Qualified Code(s): J18.1 - Lobar pneumonia, unspecified organism Disposition: Admitted As Inpatient Condition: Fair Referrals: Ji Loya MD [Primary Care Provider] - SOB HPI - General Chief Complaint: ED Shortness of Breath/Dyspnea Stated Complaint: kendra Time Seen by Provider: 08/01/17 11:16 Source: patient, EMS Mode of arrival: EMS Limitations: no limitations Nursing Notes Reviewed: Yes Vital Signs Reviewed: Yes - History of Present Illness Patient presents to ED via EMS complaining of difficulty breathing. States that she has been sick since last May but her breathing difficulties have been worse over the past week. She reports a productive cough with white sputum that has been worse over the past week. States she has had a chronic cough for over 3 years. She has a history of COPD and wears 3 L of oxygen at home at all times. States she called EMS to come in because her nurse had loaned her her pulse oximeter and it read 51% at home this morning. She has not had a breathing treatment since 1 AM. She has not recently been on antibiotics or steroids. She also reports rhinorrhea and congestion as well as chills but no fever. Denies any nausea, vomiting or diarrhea. States she has been constipated but had a bowel movement yesterday. Reports some right-sided chest discomfort with deep breathing. She states her daughter's family who she has been on recently has had the flu. She continues to smoke. On arrival here she was satting 96% on 6 L but desatted to 88% when she was decreased to 4 L. She denies any leg swelling. - Related Data Home Medications Medication Instructions Recorded Confirmed Duloxetine HCl [Cymbalta] 60 mg PO HS 06/06/16 08/01/17 Ergocalciferol (VITAMIN D2) 50,000 unit PO WD 06/06/16 08/01/17 [Vitamin D2] Ezetimibe [Zetia] 10 mg PO QAM 06/06/16 08/01/17 Gabapentin [Neurontin] 600 mg PO DAILY 06/06/16 08/01/17 HYDROcodone/Acet 7.5/325 mg [[place] 1 tab PO TID PRN 06/06/16 08/01/17 7.5-325 mg] Metoprolol [Lopressor] 100 mg PO BID 06/06/16 08/01/17 Omeprazole 40 mg PO QAM 06/06/16 08/01/17 Promethazine [Phenergan] 25 mg PO Q6HR PRN 06/06/16 08/01/17 Albuterol Sulfate [Proair Hfa] 2 puff IH Q4H PRN 10/06/16 08/01/17 Atorvastatin [Lipitor] 10 mg PO HS 10/06/16 08/01/17 Lactulose 20 gm PO DAILY PRN 10/06/16 08/01/17 Methylphenidate HCl [Ritalin] 15 mg PO 0800,1200 10/06/16 08/01/17 Aspirin [Ecotrin] 325 mg PO DAILY 08/01/17 08/01/17 Atorvastatin [Lipitor] 10 mg PO HS 08/01/17 08/01/17 Budesonide/Formoterol 160/4.5 2 puff IH BIDR 08/01/17 08/01/17 [Symbicort 160/4.5] Duloxetine HCl [Cymbalta] 60 mg PO DAILY 08/01/17 08/01/17 Furosemide [Lasix] 20 mg PO BID 08/01/17 08/01/17 Potassium Chloride [K-Tab ER] 20 meq PO BID 08/01/17 08/01/17 metFORMIN [Glucophage] 850 mg PO BIDWM 08/01/17 08/01/17 Previous Rx's Medication Instructions Recorded Cyanocobalamin (B-12) [Vitamin B12] 1,000 mcg PO DAILY #30 tablet 06/10/16 Folic Acid 1 mg PO DAILY #30 tablet 06/10/16 Alprazolam [Alprazolam Xr] 0.5 mg PO BID PRN #0 05/30/17 Ascorbic Acid [Vitamin C] 500 mg PO DAILY #30 tablet.er 05/30/17 Ferrous Sulfate 325 mg PO DAILY #30 tablet 05/30/17 Isosorbide MONOnitrate (24 HR) 30 mg PO DAILY #30 tab.er.24h 06/19/17 [Imdur] Lactobacillus [Culturelle] 1 each PO BID #10 cap.sprink 06/19/17 Magnesium Oxide [Mag-Ox] 400 mg PO BID #20 tablet 06/19/17 Allergies Allergy/AdvReac Type Severity Reaction Status Date / Time Sulfa (Sulfonamide Allergy Rash Verified 08/01/17 11:14 Antibiotics) codeine AdvReac Agitated Verified 08/01/17 11:14 morphine AdvReac Agitated Verified 08/01/17 11:14 Constitutional: Reports: chills. Denies: fever, weakness, weight change Eyes: Denies: eye pain, eye discharge, vision change ENT ED: Denies: ear pain, throat pain, dental pain, hearing loss, epistaxis, congestion, dysphagia Cardiovascular: Reports: orthopnea. Denies: chest pain, palpitations, edema, syncope Respiratory: Reports: cough, dyspnea, sputum production. Denies: wheezes, hemoptysis, stridor Gastrointestinal: Denies: abdominal pain, nausea, vomiting, diarrhea, constipation, hematemesis, melena, hematochezia Genitourinary: Denies: dysuria, frequency, hematuria, discharge Musculoskeletal: Denies: back pain, neck pain, arthralgia, myalgia Integumentary: Denies: rash, abrasion, lesions Neurological: Denies: headache, weakness, numbness, paresthesias, confusion, abnormal gait, vertigo Psychiatric: Denies: anxiety, depression, suicidal thoughts, homicidal thoughts , auditory hallucinations, visual hallucinations Endocrine: Denies: fatigue Hematological/Lymphatic: Denies: easy bleeding, easy bruising Allergic/Immunologic: Denies: facial swelling, urticaria Past Medical History - Past Medical History Medical history: Reports: arthritis, asthma, CHF, COPD, GERD, hyperlipidemia, hypertension, myocardial infarction Surgical history: Reports: appendectomy, breast surgery, cholecystectomy, hysterectomy, orthopedic, other, other Psychiatric history: Reports: anxiety, depression QA ARCHITECT history: Reports: no QA ARCHITECT history - Social History Smoking Status: Current every day smoker Smokeless Tobacco Status: No Alcohol use: Reports: rarely Drug use: Reports: none Physical Exam - General Limitations: no limitations General appearance: alert, in no apparent distress - Head Head exam: atraumatic, normocephalic, normal inspection - Eye Eye exam: Present: normal appearance, PERRL, EOMI - ENT ENT exam: normal exam, normal oropharynx, mucous membranes moist - Neck Neck exam: Present: normal inspection, full ROM, trachea midline - Chest Chest inspection: Present: normal inspection, symmetric chest wall rise - Respiratory Respiratory exam: Present: normal lung sounds bilaterally, wheezes. Absent: respiratory distress - Expanded Respiratory Exam Location: wheezes: Left, Right, Upper, Lower (end expiratory), decreased breath sounds: Left, Right, Upper, Lower - Cardiovascular Cardiovascular exam: Present: regular rate, normal rhythm, normal heart sounds - Abdominal Exam Abdominal exam: Present: soft, Non-Tender, normal bowel sounds. Absent: tenderness, distention, guarding, rebound, rigidity - Extremities Exam Extremities exam: Present: normal inspection, full ROM. Absent: tenderness, pedal edema - Back Exam Back exam: Present: normal inspection, full ROM. Absent: tenderness - Neurological Exam Neurological exam: Present: alert, oriented X3 - Psychiatric Psychiatric exam: Present: normal affect, normal mood - Skin Skin exam: Present: warm, dry, intact, normal color Course Course Narrative: Reason presents to the ED with report of productive cough, worsening dyspnea and chills over the past week with recent exposure to the flu. On arrival she was 96% on 6 L but decreased 88% when she was decreased to 4 L. She was given a breathing treatment and steroids. ABG shows respiratory acidosis with a pH of 7.28 and PCO2 of 112. Oxygen was decreased to 3 L which is her home amount after breathing treatment and she is maintained oxygen saturations in the low 90s. Chest x-ray shows a likely right basilar pneumonia. Lactic acid, white count and troponin are all normal. BNP is slightly elevated at 106. Flu swab is negative. Based on presentation and likely pneumonia she will have blood cultures drawn and be started on antibiotics. She will require admission. Patient is updated on results and need for admission and is in agreement. Will contact hospitalist on-call. - Reevaluation(s) Reevaluation #1: I spoke to Dr. Hobbs, hospitalist on-call, who is agreed to admit the patient. Time: 12:35 Vital Signs Temperature 98.2 F 08/01/17 11:15 Pulse Rate 99 08/01/17 11:15 Respiratory Rate 22 08/01/17 11:15 Blood Pressure 130/78 08/01/17 11:15 O2 Sat by Pulse Oximetry 95 08/01/17 11:15 Temperature 98.2 F 08/01/17 11:15 Pulse Rate 95 08/01/17 12:16 Respiratory Rate 20 08/01/17 12:16 Blood Pressure 141/67 08/01/17 12:16 O2 Sat by Pulse Oximetry 90 08/01/17 12:16 Oxygen Delivery Oxygen Delivery Nasal Cannula Shortness of Breath/Dyspnea - Differential Diagnosis Likely: acute exacerbation of chronic obstructive airways disease, congestive heart failure, pneumonia - Medical Records Medical records reviewed: Yes I reviewed the patient's medical records. - Lab Data Lab results reviewed: Yes I reviewed the patient's lab results. Result diagrams: 08/01/17 11:41 08/01/17 11:41 Lab Results 08/01/17 08/01/17 08/01/17 Range/Units 11:41 11:41 11:41 WBC 5.2 (4.3-11.1) K/mcL RBC 4.08 (3.82-4.97) M/mcL Hgb 9.9 L (11.5-15.4) g/dL Hct 36.7 (35.3-44.9) % MCV 90.0 (83.0-100.0) fL MCH 24.3 L (28.0-33.3) pg MCHC 27.0 L (31.6-35.5) g/dL RDW 14.6 H (11.5-14.5) % Plt Count 205 (140-400) K/mcL MPV 9.0 L (9.4-12.4) fL Sample Site ABG pH (7.32-7.45) pH Units ABG pCO2 (35-45) mmHg ABG pO2 (85-104) mmHg ABG HCO3 (21-27) mEq/L ABG Total CO2 (20-26) mEq/L ABG O2 Saturation (95-98) % ABG Base Excess (-2 to 3) mEq/L Carter Test O2 Delivery Device Inspired O2 (1-15=lpm [id number]=%) Sodium 145 (136-145) mEq/L Potassium 4.0 (3.5-5.1) mEq/L Chloride 93 L (98-107) mEq/L Carbon Dioxide 49 H* (23-29) mEq/L BUN 5 L (8-23) mg/dL Creatinine 0.43 L (0.60-1.20) mg/dL Est GFR ( Amer) > 60 (> 60) Est GFR (Non-Af Amer) > 60 (> 60) BUN/Creatinine Ratio 12 (6-26) Glucose 107 H (70-105) mg/dL Calculated Osmolality 298 (280-300) Lactic Acid 0.5 (0.5-2.2) mmol/L Calcium 9.7 (8.6-10.3) mg/dL Troponin I (< 0.04) ng/mL B-Natriuretic Peptide (Less than 100) pg/mL Person Notif of Crit 08/01/17 08/01/17 08/01/17 Range/Units 11:41 11:41 11:57 WBC (4.3-11.1) K/mcL RBC (3.82-4.97) M/mcL Hgb (11.5-15.4) g/dL Hct (35.3-44.9) % MCV (83.0-100.0) fL MCH (28.0-33.3) pg MCHC (31.6-35.5) g/dL RDW (11.5-14.5) % Plt Count (140-400) K/mcL MPV (9.4-12.4) fL Sample Site R Radial ABG pH 7.29 L (7.32-7.45) pH Units ABG pCO2 113 H* (35-45) mmHg ABG pO2 73 L (85-104) mmHg ABG HCO3 54 H (21-27) mEq/L ABG Total CO2 57 H (20-26) mEq/L ABG O2 Saturation 90 L (95-98) % ABG Base Excess 22 H (-2 to 3) mEq/L Carter Test Positive O2 Delivery Device Cannula Inspired O2 6.0 (1-15=lpm [id number]=%) Sodium (136-145) mEq/L Potassium (3.5-5.1) mEq/L Chloride (98-107) mEq/L Carbon Dioxide (23-29) mEq/L BUN (8-23) mg/dL Creatinine (0.60-1.20) mg/dL Est GFR ( Amer) (> 60) Est GFR (Non-Af Amer) (> 60) BUN/Creatinine Ratio (6-26) Glucose (70-105) mg/dL Calculated Osmolality (280-300) Lactic Acid (0.5-2.2) mmol/L Calcium (8.6-10.3) mg/dL Troponin I < 0.03 (< 0.04) ng/mL B-Natriuretic Peptide 103 H (Less than 100) pg/mL Person Notif of Crit Darci Prado RN - Radiology Data Radiology results reviewed: Yes I reviewed the patient's radiology results. ITS Impressions Chest X-Ray 08/01/17 11:28 IMPRESSION: Persistent pulmonary vascular congestion. Increased density at the right lung base most likely represents increasing airspace disease and increasing right pleural fluid suggesting a right basilar pneumonia and a parapneumonic right effusion. D/ / 08/01/2017 12:22:15 Phillip Russell MD / [facility] Interpreting Provider: Phillip Russell MD - EKG Data EKG attestation: Yes I reviewed and interpreted this EKG. EKG shows normal: Reports: sinus rhythm Rate: Reports: tachycardia Rhythm: Reports: NSR, PAC's [place]/QRS: Reports: normal Interpretation: Reports: no acute changes
[2017-08-01] MEDS ORDERED: Ipratropium/Albuterol Neb 3 ML IH ONE (11:28)
[2017-08-01] MEDS ORDERED: methylPREDNISolone 125 MG/2 ML VIAL IVP ONE (11:28)
[2017-08-01 11:54] LABS: Basophils % 0.4 %; Eosinophils % 0.6 %; Hematocrit 36.7 % (35.3-44.9); Hemoglobin 9.9 g/dL (11.5-15.4); Immature Granulocytes % 0.6 % (0-4); Lymphocytes % 18.3 %; Mean Corpuscular Hemoglobin 24.3 pg (28.0-33.3); Monocytes # 0.4 K/mcL (0.0-1.3); Monocytes % 8.3 %; Neutrophils # 3.7 K/mcL (1.6-8.9); Platelet Count 205 K/mcL (140-400); Red Blood Count 4.08 M/mcL (3.82-4.97); Red Cell Distribution Width 14.6 % (11.5-14.5); Segmented Neutrophils % 71.8 %
[2017-08-01 12:03] LABS: ABG Base Excess 22 mEq/L (-2 to 3); ABG HCO3 54 mEq/L (21-27); ABG Oxygen Saturation 90 % (95-98); ABG PCO2 113 mmHg (35-45); ABG PH 7.29 pH Units (7.32-7.45); ABG PO2 73 mmHg (85-104); ABG TCO2 57 mEq/L (20-26)
[2017-08-01] MEDS ORDERED: 0.9 % Sodium Chloride 500 ML IVC ONE (12:17)
[2017-08-01] MEDS ORDERED: Levofloxacin 750 MG/150 ML 750 MG/150 ML BAG IVPB ONE (12:17)
[2017-08-01 12:32] LABS: BUN/Creatinine Ratio 12 (6-26); Blood Urea Nitrogen 5 mg/dL (8-23); Calcium 9.7 mg/dL (8.6-10.3); Carbon Dioxide 49 mEq/L (23-29); Chloride 93 mEq/L (98-107); Glucose 107 mg/dL (70-105); Osmolality,Calculated 298 (280-300); Sodium 145 mEq/L (136-145); eGFR For African Americans > 60 (> 60); eGFR For Non-African Americans > 60 (> 60)
[2017-08-01] MEDS ORDERED: Naloxone 0.4 MG/ML INJ IVP PRN ×2 (12:34→13:35)
[2017-08-01 12:53] LABS: Anisocytosis 1+ (Not Present); Hypochromasia Present (Not Present); Platelet Estimate Normal (Normal)
[2017-08-01] MEDS ORDERED: Dextrose Gel 15 GM PO PRN ×2 (13:35)
[2017-08-01] MEDS ORDERED: D5% in Water 1,000 ML IVC PRN (13:35)
[2017-08-01] MEDS ORDERED: *HR* Dextrose 50 % in Water (Syg) 50 ML SYRINGE IVP PRN (13:35)
[2017-08-01] MEDS ORDERED: ALPRAZolam 0.5 MG TABLET PO PRN (13:35)
[2017-08-01] MEDS ORDERED: Lactulose Oral Soln 20 GM/30 ML UDC PO PRN (13:35)
--- NOTE | 2017-08-01 15:31 | Internal Med History&Physical ---
Date of Encounter: 08/01/17 Time of Encounter: 15:00 Assessment and Plan (1) Dyspnea Current visit: Yes Status: Acute Suspect multifactorial etiology including right pleural effusion, hospital pneumonia, COPD, and deconditioning. I will order d-dimer and chest and abdomen /pelvic CT Qualifiers: Dyspnea type: shortness of breath Qualified Code(s): R06.02 - Shortness of breath; R06.00 - Dyspnea, unspecified; R06.01 - Orthopnea (2) Weight loss Current visit: Yes Status: Acute 25 pound weight loss unintentionally over the last 2 months. We will do CT as per above. She complains of increasing dysphagia and may need endoscopy. (3) Anemia Current visit: No Status: Acute Will order anemia testing. Qualifiers: Anemia type: unspecified type Qualified Code(s): D64.9 - Anemia, unspecified Internal Medicine - H&P: HPI Chief complaint: Dyspnea Admitted From: Emergency Dept Plans for Post Hospital Care: Home History of present illness: Ms. Barnes is a 67 year old female who came to emergency room complaining of progressive dyspnea over the past few days. She reports she has had a cough productive of whitish phlegm but no yellow, green, or hemoptysis. She has not had significant chest pain. She was evaluated in the emergency room and felt to have right lower lobe pneumonia with pleural effusion. She was admitted to [facility] floor for ongoing care needs. She was hospitalized last at [facility] May 2017 with respiratory failure and exacerbation of COPD. Her respiratory history is significant for having smoked since age 13 up to one pack per day. She wears oxygen at home 29/01 except taking it off to smoke. She denies PFTs. 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 Past Med Surg Social Fam HX - Past Medical History Medical history: arthritis, asthma, CHF, COPD, GERD, hyperlipidemia, hypertension, myocardial infarction Psychiatric history: anxiety, depression - Past Surgical History Surgical History: appendectomy, breast surgery, cholecystectomy, hysterectomy, orthopedic, other, other - Social History Smoking Status: Current every day smoker Smokeless Tobacco Status: No Alcohol use: rarely Drug use: none - Family History Mother Living Status: Hx Family Cancer: Yes Father Living Status: Hx Family Cancer: Yes (bone) Internal Medicine - H&P: Meds Duloxetine HCl [Cymbalta] 60 mg PO HS 06/06/16 [History] Ergocalciferol (VITAMIN D2) [Vitamin D2] 50,000 unit PO WD 06/06/16 [History] Ezetimibe [Zetia] 10 mg PO QAM 06/06/16 [History] Gabapentin [Neurontin] 600 mg PO DAILY 06/06/16 [History] HYDROcodone/Acet 7.5/325 mg [[place] 7.5-325 mg] 1 tab PO TID PRN 06/06/16 [ History] Metoprolol [Lopressor] 100 mg PO BID 06/06/16 [History] Omeprazole 40 mg PO QAM 06/06/16 [History] Promethazine [Phenergan] 25 mg PO Q6HR PRN 06/06/16 [History] Cyanocobalamin (B-12) [Vitamin B12] 1,000 mcg PO DAILY #30 tablet 06/10/16 [Rx] Folic Acid 1 mg PO DAILY #30 tablet 06/10/16 [Rx] Albuterol Sulfate [Proair Hfa] 2 puff IH Q4H PRN 10/06/16 [History] Atorvastatin [Lipitor] 10 mg PO HS 10/06/16 [History] Lactulose 20 gm PO DAILY PRN 10/06/16 [History] Methylphenidate HCl [Ritalin] 15 mg PO 0800,1200 10/06/16 [History] Alprazolam [Alprazolam Xr] 0.5 mg PO BID PRN #0 05/30/17 [Rx] Ascorbic Acid [Vitamin C] 500 mg PO DAILY #30 tablet.er 05/30/17 [Rx] Ferrous Sulfate 325 mg PO DAILY #30 tablet 05/30/17 [Rx] Isosorbide MONOnitrate (24 HR) [Imdur] 30 mg PO DAILY #30 tab.er.24h 06/19/17 [ Rx] Lactobacillus [Culturelle] 1 each PO BID #10 cap.sprink 06/19/17 [Rx] Magnesium Oxide [Mag-Ox] 400 mg PO BID #20 tablet 06/19/17 [Rx] Aspirin [Ecotrin] 325 mg PO DAILY 08/01/17 [History] Atorvastatin [Lipitor] 10 mg PO HS 08/01/17 [History] Budesonide/Formoterol 160/4.5 [Symbicort 160/4.5] 2 puff IH BIDR 08/01/17 [ History] Duloxetine HCl [Cymbalta] 60 mg PO DAILY 08/01/17 [History] Furosemide [Lasix] 20 mg PO BID 08/01/17 [History] Potassium Chloride [K-Tab ER] 20 meq PO BID 08/01/17 [History] metFORMIN [Glucophage] 850 mg PO BIDWM 08/01/17 [History] 3 Allergy/AdvReac Type Severity Reaction Status Date / Time Sulfa (Sulfonamide Allergy Rash Verified 08/01/17 11:14 Antibiotics) codeine AdvReac Agitated Verified 08/01/17 11:14 morphine AdvReac Agitated Verified 08/01/17 11:14 All Systems PM: A 10-system review of systems was performed and is negative for pertinent findings except as documented above in the HPI. Review of systems: Review of systems from her May 2017 [facility] hospitalization were reviewed and revised as below. Gen.: Her weight has decreased from 91.172 kg on 05/28/2017 to 79.379 kg now. She states this weight loss was unintentional. Cardiovascular: She has history of hypertension. Denies MA heart failure angina DVT or pulmonary embolus. She had an echocardiogram at [facility] 08/01/2014 which showed LVEF of 70%. There was mild diastolic dysfunction reported with E/ A ratio 0.7. There was mild tricuspid regurgitation present. She had a left heart catheter done at [facility] 08/03/2014 which showed 50% stenosis in the mid RCA , 30% stenosis in the mid circumflex and 40% stenosis in the first marginal branch of the circumflex. There was 30% stenosis in the proximal LAD and 40% stenosis in the mid LAD. The LMCA was angiographically free of disease. The LVEF was 65%. Respiratory: As per history of present illness GI: She has had cholecystectomy. She has GERD. She denies disorders of her liver or exocrine pancreas. She reports increasing dysphagia and sense of fullness in her lower neck increasing over the past year. : She had hematuria in the past which resolved. She denies other kidney or bladder disorders. Neurologic: She denies large distribution strokes or seizures. She has diabetic peripheral neuropathy Endocrine: She was diagnosed with DM 2 approximately 2006. She has hyperlipidemia and hypothyroidism history but does not take levothyroxin. TSH was normal at 2.159 on 11/19/2015. Hematology/oncology: She had anemia with anemia testing 06/18/2017 showing iron 28, transferrin saturation 11%, transferrin 190, ferritin 184, B12 463, and folate 15.7.. She denies internal malignancies. She had a benign right breast lump removed several years ago. Psychiatric: She has anxiety and depression but denies other mental health issues Musk skeletal: She has DJD. She complains of chronic low back pain. She denies gout. - Constitutional Vitals: Temp Pulse Resp BP Pulse Ox 98.5 F 97 18 145/78 90 08/01/17 14:38 08/01/17 14:38 08/01/17 14:38 08/01/17 14:38 08/01/17 14:38 Exam: Gen.: She is a well developed well-nourished female who appears dyspneic HEENT: Head is atraumatic and normocephalic. Eyes: EOMI. There is no scleral icterus. Mouth: Mucosa is moist. Neck: Supple and nontender. There is no thyromegaly or adenopathy noted. Heart: Regular without murmurs gallops or topics Lungs: She has diminished breath sounds diffusely. No wheezes or crackles are heard. Abdomen: Soft and nontender. No masses or guarding are noted. Extremities: There is no cyanosis edema or clubbing noted. Dorsalis pedis and posttibial pulses are 1-2 over 2 bilaterally. Neurologic: Mental status: She is talkative and a good historian. Cranial nerves: Smile is symmetric. Forehead wrinkles bilaterally. Tongue protrudes midline. EOMI. Motor: There is no pronator drift. Cerebellar: Finger to nose is intact bilaterally. Skin: Warm and dry Internal Med - H&P Results - Labs CBC & Chem 7: 08/01/17 11:41 08/01/17 11:41 - VTE Reasons for not Prescribing Prophylaxis: Refused by patient
[2017-08-01] MEDS: Insulin LISPRO 300 UNITS/3 ML VIAL SQ SCH ×2 (16:22→22:02)
--- NOTE | 2017-08-01 17:29 | Electrocardiograph Report ---
[address] [address] Test Date: 2017-08-01 Pat Name: Radha Barnes Department: [id number] Room: [facility] Gender: F Doctor Of Audiology: [id number] : 1950 Requested By: Magi Hinojosa Order Number: [id number] Reading MD: Sanket Garcia MD Measurements Intervals [place] Rate: 100 P: 59 IA: 135 QRS: 80 QRSD: 81 T: 50 QT: 320 QTc: 377 Interpretive Statements SINUS TACHYCARDIA WITH OCCASIONAL SUPRAVENTRICULAR PREMATURE COMPLEXES Poor R wave progression Electronically Signed On 08-01-2017 17:27:37 EST by Sanket Garcia MD
[2017-08-01] MEDS: *HR* HYDROcodone/Acet 7.5/325 mg TABLET PO PRN (18:50)
[2017-08-01] MEDS: *HR* Metformin 850 MG TABLET PO SCH (18:52)
[2017-08-01] MEDS: Budesonide/Formoterol 160/4.5 MDI IH SCH (21:20)
[2017-08-01] MEDS: Magnesium Oxide 400 MG TABLET PO SCH (22:00)
[2017-08-01] MEDS: Furosemide 20 MG TABLET PO SCH ×2 (22:00→22:08)
[2017-08-01] MEDS: Lactobacillus 1 EACH CAP.SPRINK PO SCH (22:01)
[2017-08-02] MEDS: Ascorbic Acid 500 MG TABLET PO SCH (07:04)
[2017-08-02 07:05] LABS: Basophils % 0.2 %; Hematocrit 35.8 % (35.3-44.9); Hemoglobin 9.8 g/dL (11.5-15.4); Immature Granulocytes % 0.5 % (0-4); Lymphocytes # 1.6 K/mcL (0.6-4.6); Mean Corpuscular HGB Conc 27.4 g/dL (31.6-35.5); Mean Corpuscular Hemoglobin 24.3 pg (28.0-33.3); Mean Corpuscular Volume 88.6 fL (83.0-100.0); Mean Platelet Volume 9.4 fL (9.4-12.4); Monocytes # 0.6 K/mcL (0.0-1.3); Monocytes % 10.3 %; Neutrophils # 3.5 K/mcL (1.6-8.9); Platelet Count 246 K/mcL (140-400); Red Blood Count 4.04 M/mcL (3.82-4.97); Red Cell Distribution Width 14.4 % (11.5-14.5)
[2017-08-02 07:55] LABS: Potassium 4.5 mEq/L (3.5-5.1); Sodium 139 mEq/L (136-145)
[2017-08-02 07:56] LABS: Chloride 93 mEq/L (98-107)
[2017-08-02 08:00] LABS: BUN/Creatinine Ratio 18 (6-26); Blood Urea Nitrogen 8 mg/dL (8-23); Carbon Dioxide 48 mEq/L (23-29); Glucose 146 mg/dL (70-105); Magnesium 1.3 mg/dL (1.6-2.6); Osmolality,Calculated 289 (280-300); eGFR For African Americans > 60 (> 60); eGFR For Non-African Americans > 60 (> 60)
[2017-08-02 08:01] LABS: Calcium 9.9 mg/dL (8.6-10.3)
[2017-08-02 08:02] LABS: Alanine Aminotransferase 9 Units/L (7-52); Alkaline Phosphatase 55 Units/L (34-104); Aspartate Amino Transferase 12 Units/L (13-39); Bilirubin,Total 0.2 mg/dL (0.3-1.0)
[2017-08-02 08:03] LABS: Albumin 3.5 g/dL (3.5-5.7); Albumin/Globulin Ratio 1.3 (1.1-2.2); Globulin 2.6 g/dL (2.4-3.5); Total Protein 6.1 g/dL (6.4-8.9)
[2017-08-02 08:31] LABS: Hypochromasia Present (Not Present)
[2017-08-02 08:32] LABS: Platelet Estimate Normal (Normal)
[2017-08-02] MEDS ORDERED: Aspirin Enteric Coated 325 MG Tablet PO SCH (09:00)
[2017-08-02] MEDS ORDERED: Gabapentin 300 MG CAPSULE PO SCH (09:00)
[2017-08-02] MEDS: (Ezetimibe [Zetia] 10 MG) PO SCH (09:43)
[2017-08-02] MEDS: Insulin LISPRO 300 UNITS/3 ML VIAL SQ SCH ×4 (09:43→21:42)
[2017-08-02] MEDS: Budesonide/Formoterol 160/4.5 MDI IH SCH ×2 (09:44→22:21)
--- NOTE | 2017-08-02 09:56 | Internal Med Progress Note ---
Date of Encounter: 08/02/17 Time of Encounter: 09:45 - Assessment and plan (1) Dyspnea Current Visit: Yes Status: Acute Assessment and plan: August 02. CT showed pneumonia with small to moderate pleural effusion. Will continue Levaquin and lactobacillus Qualifiers: Dyspnea type: shortness of breath Qualified Code(s): R06.02 - Shortness of breath; R06.00 - Dyspnea, unspecified; R06.01 - Orthopnea (2) Weight loss Current Visit: Yes Status: Acute Assessment and plan: August 02. TSH is pending. CT scan did not show indication of malignancy. (3) Anemia Current Visit: No Status: Acute Assessment and plan: August 02. Anemia testing is pending. Hemoglobin stable at 9.8. Qualifiers: Anemia type: unspecified type Qualified Code(s): D64.9 - Anemia, unspecified (4) Hypomagnesemia Current Visit: No Status: Acute Assessment and plan: August 02. Suspect primarily due to furosemide use. Will decrease dose to 20 mg daily and give additional magnesium oxide. - Subjective Interval history: August 02. She has no new complaints and states she feels better. - Constitutional Vitals: Temp Pulse Resp BP Pulse Ox 97.7 F 80 18 114/61 89 08/02/17 07:32 08/02/17 07:32 08/02/17 09:48 08/02/17 07:32 08/02/17 09:48 Exam: She is lying in bed and appears in no respiratory distress. She is lethargic but awakens and answers questions appropriately with short answers. Her legs showed no edema. I reviewed her medications, lab results, and CT reports. Internal Medicine: Result - Labs CBC & Chem 7: 08/02/17 06:58 08/02/17 06:58 Labs: Short CBC 08/02/17 Range/Units 06:58 WBC 5.7 (4.3-11.1) K/mcL Hgb 9.8 L (11.5-15.4) g/dL Hct 35.8 (35.3-44.9) % Plt Count 246 (140-400) K/mcL Neutrophils # 3.5 (1.6-8.9) K/mcL BMP 08/02/17 06:58 Sodium 139 Potassium 4.5 Chloride 93 L Carbon Dioxide 48 H* BUN 8 Creatinine 0.45 L Glucose 146 H Calcium 9.9 Liver Function 08/02/17 Range/Units 06:58 Total Bilirubin 0.2 L (0.3-1.0) mg/dL AST 12 L (13-39) Units/L ALT 9 (7-52) Units/L Alkaline Phosphatase 55 (34-104) Units/L Albumin 3.5 (3.5-5.7) g/dL - ABG Interpretation ABG results: ABG ABG pH 7.29 pH Units (7.32-7.45) L 08/01/17 11:57 ABG pCO2 113 mmHg (35-45) H* 08/01/17 11:57 ABG pO2 73 mmHg (85-104) L 08/01/17 11:57 ABG O2 Saturation 90 % (95-98) L 08/01/17 11:57 PT/INR, D-dimer D-Dimer 1276 ng/mLFEU (0-500) H 08/01/17 16:05 - Impressions Impressions Abdomen/Pelvis CT 08/01/17 15:21 IMPRESSION: No evidence of pulmonary embolus. Small to moderate right pleural effusion. Partial consolidation of the right middle lobe and right lower lobe as well as scattered ground-glass attenuation in the upper lobes. Findings concerning for infection. Emphysema. Mild edema within the soft tissues of the abdomen and pelvis. No acute findings in the abdomen or pelvis. D/ / Rosmery Aleman MD / Rosmery Aleman MD Interpreting Provider: Rosmery Aleman MD Chest CTA 08/01/17 16:40 IMPRESSION: No evidence of pulmonary embolus. Small to moderate right pleural effusion. Partial consolidation of the right middle lobe and right lower lobe as well as scattered ground-glass attenuation in the upper lobes. Findings concerning for infection. Emphysema. Mild edema within the soft tissues of the abdomen and pelvis. No acute findings in the abdomen or pelvis. D/ / Rosmery Aleman MD / Rosmery Aleman MD Interpreting Provider: Rosmery Aleman MD - VTE Reasons for not Prescribing Prophylaxis: Refused by patient Consult Discharge Plan - Plan
[2017-08-02 10:41] LABS: Folate 19.4 ng/mL (3.0-16.0)
[2017-08-02 10:57] LABS: % Iron Saturation 4 % (15-50); Ferritin 29 ng/ml (10-120); Iron 16 mcg/dL (50-170); Transferrin 301 mg/dL (203-362)
[2017-08-02 12:23] LABS: Thyroid Stimulating Hormone 0.564 mcIU/mL (0.340-5.600)
[2017-08-02] MEDS: Isosorbide MONOnitrate (24 HR) 30 MG TAB.ER.24H PO SCH (12:47)
[2017-08-02] MEDS: Cyanocobalamin (B-12) 1,000 MCG TABLET PO SCH (12:47)
[2017-08-02] MEDS: Methylphenidate HCl 10 MG TABLET PO SCH ×2 (12:47)
[2017-08-02] MEDS: Lactobacillus 1 EACH CAP.SPRINK PO SCH ×2 (12:48→21:42)
[2017-08-02] MEDS: Levofloxacin 750 MG/150 ML 750 MG/150 ML BAG IVPB SCH (12:48)
[2017-08-02] MEDS: Folic Acid 1 MG TABLET PO SCH (12:48)
[2017-08-02] MEDS: *HR* Metformin 850 MG TABLET PO SCH ×2 (12:48→17:44)
[2017-08-02] MEDS: Furosemide 20 MG TABLET PO SCH (14:36)
[2017-08-02] MEDS: Magnesium Oxide 400 MG TABLET PO SCH ×3 (14:37→21:42)
[2017-08-02] MEDS ORDERED: Albuterol 2.5 MG/3 ML NEBULIZER ONE (17:06)
[2017-08-02] MEDS: Albuterol 2.5 MG/3 ML NEBULIZER IH PRN ×3 (17:07→22:20)
[2017-08-03] MEDS: *HR* Enoxaparin 40 MG/0.4 ML SYRINGE SQ SCH (06:33)
[2017-08-03] MEDS: Ascorbic Acid 500 MG TABLET PO SCH (06:34)
[2017-08-03] MEDS: Albuterol 2.5 MG/3 ML NEBULIZER IH PRN ×3 (07:49→21:12)
[2017-08-03] MEDS: Budesonide/Formoterol 160/4.5 MDI IH SCH ×2 (08:09→21:13)
[2017-08-03] MEDS: Insulin LISPRO 300 UNITS/3 ML VIAL SQ SCH ×4 (08:20→21:00)
[2017-08-03] MEDS: Levofloxacin 750 MG/150 ML 750 MG/150 ML BAG IVPB SCH (08:21)
[2017-08-03] MEDS: Methylphenidate HCl 10 MG TABLET PO SCH ×2 (08:22→13:39)
[2017-08-03] MEDS: *HR* Metformin 850 MG TABLET PO SCH ×2 (08:23→17:40)
[2017-08-03] MEDS: Cholecalciferol (D-3) 1,000 UNIT TABLET PO SCH (08:23)
[2017-08-03] MEDS: Lactobacillus 1 EACH CAP.SPRINK PO SCH ×2 (08:24→21:48)
[2017-08-03] MEDS: Furosemide 20 MG TABLET PO SCH (08:24)
[2017-08-03] MEDS: Magnesium Oxide 400 MG TABLET PO SCH ×3 (08:25→21:48)
[2017-08-03] MEDS: Cyanocobalamin (B-12) 1,000 MCG TABLET PO SCH (08:26)
[2017-08-03] MEDS: Gabapentin 300 MG CAPSULE PO SCH (08:26)
[2017-08-03] MEDS: Isosorbide MONOnitrate (24 HR) 30 MG TAB.ER.24H PO SCH (08:27)
[2017-08-03] MEDS: (Ezetimibe [Zetia] 10 MG) PO SCH (08:27)
[2017-08-03] MEDS: Folic Acid 1 MG TABLET PO SCH (08:27)
[2017-08-03] MEDS: *HR* HYDROcodone/Acet 7.5/325 mg TABLET PO PRN ×3 (08:35→21:48)
--- NOTE | 2017-08-03 09:42 | Internal Med Progress Note ---
Date of Encounter: 08/03/17 Time of Encounter: 09:30 - Assessment and plan (1) Dyspnea Current Visit: Yes Status: Acute Assessment and plan: August 02. CT showed pneumonia with small to moderate pleural effusion. Will continue Levaquin and lactobacillus Qualifiers: Dyspnea type: shortness of breath Qualified Code(s): R06.02 - Shortness of breath; R06.00 - Dyspnea, unspecified; R06.01 - Orthopnea (2) Weight loss Current Visit: Yes Status: Acute Assessment and plan: August 02. TSH is pending. CT scan did not show indication of malignancy. August 03. TSH was normal at 0.564. (3) Anemia Current Visit: No Status: Acute Assessment and plan: August 02. Anemia testing is pending. Hemoglobin stable at 9.8. August 03. Anemia testing showed iron 16, transferrin saturation 4%, transferrin 301, ferritin 29, B12 244, and folate 19.4. Will give B12 injection and start oral B12 supplement. She is not adequately absorbing ferrous sulfate orally so will give IV iron dextran. Qualifiers: Anemia type: unspecified type Qualified Code(s): D64.9 - Anemia, unspecified (4) Hypomagnesemia Current Visit: No Status: Acute Assessment and plan: August 02. Suspect primarily due to furosemide use. Will decrease dose to 20 mg daily and give additional magnesium oxide. August 03. Continue higher dose magnesium oxide and recheck labs in a.m. - Subjective Interval history: August 02. She has no new complaints and states she feels better. August 03. She has no new complaints - Constitutional Vitals: Temp Pulse Resp BP Pulse Ox 98.2 F 75 28 105/54 93 08/03/17 06:31 08/03/17 06:31 08/03/17 07:52 08/03/17 06:31 08/03/17 07:52 Exam: She is resting comfortably in bed and appears in no acute distress. She is alert and talkative and appropriate in conversation. I reviewed her medications and lab results. Internal Medicine: Result - Labs CBC & Chem 7: 08/02/17 06:58 08/02/17 06:58 - ABG Interpretation ABG results: ABG ABG pH 7.29 pH Units (7.32-7.45) L 08/01/17 11:57 ABG pCO2 113 mmHg (35-45) H* 08/01/17 11:57 ABG pO2 73 mmHg (85-104) L 08/01/17 11:57 ABG O2 Saturation 90 % (95-98) L 08/01/17 11:57 PT/INR, D-dimer D-Dimer 1276 ng/mLFEU (0-500) H 08/01/17 16:05 - VTE Reasons for not Prescribing Prophylaxis: Refused by patient Consult Discharge Plan - Plan Referrals: Ji Loya MD [Primary Care Provider] - 1 week
[2017-08-03] MEDS ORDERED: Cyanocobalamin (B-12) 1,000 MCG/ML VIAL IM ONE (09:45)
[2017-08-03] MEDS ORDERED: SODIUM CHLORIDE 0.9% IVPB ONE (11:00)
[2017-08-03] MEDS ORDERED: IRON DEXTRAN COMPLEX IVPB ONE (11:00)
[2017-08-04 04:52] LABS: Basophils % 0.5 %; Eosinophils # 0.1 K/mcL (0.0-0.6); Eosinophils % 1.8 %; Hematocrit 35.8 % (35.3-44.9); Hemoglobin 9.8 g/dL (11.5-15.4); Immature Granulocytes % 0.5 % (0-4); Lymphocytes # 2.2 K/mcL (0.6-4.6); Lymphocytes % 33.7 %; Mean Corpuscular HGB Conc 27.4 g/dL (31.6-35.5); Mean Corpuscular Hemoglobin 24.6 pg (28.0-33.3); Mean Corpuscular Volume 89.7 fL (83.0-100.0); Mean Platelet Volume 9.7 fL (9.4-12.4); Monocytes # 0.7 K/mcL (0.0-1.3); Neutrophils # 3.5 K/mcL (1.6-8.9); Platelet Count 240 K/mcL (140-400); Red Blood Count 3.99 M/mcL (3.82-4.97); Red Cell Distribution Width 14.6 % (11.5-14.5); Segmented Neutrophils % 53.5 %
[2017-08-04 05:39] LABS: Anisocytosis 1+ (Not Present); Hypochromasia Present (Not Present)
[2017-08-04 05:40] LABS: Platelet Estimate Normal (Normal)
[2017-08-04] MEDS: *HR* Enoxaparin 40 MG/0.4 ML SYRINGE SQ SCH (06:53)
[2017-08-04 06:59] LABS: Chloride 92 mEq/L (98-107); Potassium 4.8 mEq/L (3.5-5.1); Sodium 139 mEq/L (136-145)
[2017-08-04 07:00] LABS: Carbon Dioxide 48 mEq/L (23-29)
[2017-08-04 07:01] LABS: BUN/Creatinine Ratio 18 (6-26); Blood Urea Nitrogen 10 mg/dL (8-23); Calcium 9.6 mg/dL (8.6-10.3); Glucose 102 mg/dL (70-105); Magnesium 1.5 mg/dL (1.6-2.6); Osmolality,Calculated 287 (280-300); eGFR For African Americans > 60 (> 60); eGFR For Non-African Americans > 60 (> 60)
[2017-08-04] MEDS: Insulin LISPRO 300 UNITS/3 ML VIAL SQ SCH ×2 (07:42→11:36)
[2017-08-04 09:10] VITALS: BP 126/77
[2017-08-04] MEDS: *HR* Metformin 850 MG TABLET PO SCH (09:11)
[2017-08-04] MEDS: Lactobacillus 1 EACH CAP.SPRINK PO SCH (09:12)
[2017-08-04] MEDS: Isosorbide MONOnitrate (24 HR) 30 MG TAB.ER.24H PO SCH (09:12)
[2017-08-04] MEDS: Methylphenidate HCl 10 MG TABLET PO SCH ×2 (09:12→12:02)
[2017-08-04] MEDS: Gabapentin 300 MG CAPSULE PO SCH (09:13)
[2017-08-04] MEDS: Furosemide 20 MG TABLET PO SCH (09:13)
[2017-08-04] MEDS: Magnesium Oxide 400 MG TABLET PO SCH (09:13)
[2017-08-04] MEDS: Cholecalciferol (D-3) 1,000 UNIT TABLET PO SCH (09:14)
[2017-08-04] MEDS: Cyanocobalamin (B-12) 1,000 MCG TABLET PO SCH (09:14)
[2017-08-04] MEDS: (Ezetimibe [Zetia] 10 MG) PO SCH (09:14)
[2017-08-04] MEDS: Levofloxacin 750 MG/150 ML 750 MG/150 ML BAG IVPB SCH (09:15)
--- NOTE | 2017-08-04 09:22 | Discharge Summary ---
Date of Encounter: 08/04/17 Time of Encounter: 09:05 - Discharge Diagnosis (1) Community acquired pneumonia Priority: Primary Status: Acute Qualifiers: Laterality: right Lung location: lower lobe of lung Qualified Code(s): J18.1 - Lobar pneumonia, unspecified organism (2) Weight loss Priority: Secondary Status: Acute (3) Anemia Priority: Secondary Status: Acute Qualifiers: Anemia type: iron deficiency Iron deficiency anemia type: unspecified iron deficiency Qualified Code(s): D50.9 - Iron deficiency anemia, unspecified (4) Hypomagnesemia Priority: Secondary Status: Acute - Discharge Medications Prescriptions: Gabapentin [Neurontin] 300 mg PO DAILY #30 capsule Lactobacillus [Culturelle] 1 each PO BID #6 cap.sprink levoFLOXacin [Levaquin] 500 mg PO DAILY #3 tablet Home Medications: Duloxetine HCl [Cymbalta] 60 mg PO HS 06/06/16 [History] Ergocalciferol (VITAMIN D2) [Vitamin D2] 50,000 unit PO WD 06/06/16 [History] Ezetimibe [Zetia] 10 mg PO QAM 06/06/16 [History] HYDROcodone/Acet 7.5/325 mg [[place] 7.5-325 mg] 1 tab PO TID PRN 06/06/16 [ History] Metoprolol [Lopressor] 100 mg PO BID 06/06/16 [History] Omeprazole 40 mg PO QAM 06/06/16 [History] Promethazine [Phenergan] 25 mg PO Q6HR PRN 06/06/16 [History] Albuterol Sulfate [Proair Hfa] 2 puff IH Q4H PRN 10/06/16 [History] Atorvastatin [Lipitor] 10 mg PO HS 10/06/16 [History] Lactulose 20 gm PO DAILY PRN 10/06/16 [History] Methylphenidate HCl [Ritalin] 15 mg PO 0800,1200 10/06/16 [History] Alprazolam [Alprazolam Xr] 0.5 mg PO BID PRN #0 05/30/17 [Rx] Isosorbide MONOnitrate (24 HR) [Imdur] 30 mg PO DAILY #30 tab.er.24h 06/19/17 [ Rx] Magnesium Oxide [Mag-Ox] 400 mg PO BID #20 tablet 06/19/17 [Rx] Atorvastatin [Lipitor] 10 mg PO HS 08/01/17 [History] Budesonide/Formoterol 160/4.5 [Symbicort 160/4.5] 2 puff IH BIDR 08/01/17 [ History] Duloxetine HCl [Cymbalta] 60 mg PO DAILY 08/01/17 [History] metFORMIN [Glucophage] 850 mg PO BIDWM 08/01/17 [History] Cyanocobalamin (B-12) [Vitamin B12] 2,000 mcg PO DAILY #30 tablet 08/04/17 [Rx] Furosemide [Lasix] 20 mg PO DAILY #0 08/04/17 [Rx] Gabapentin [Neurontin] 300 mg PO DAILY #30 capsule 08/04/17 [Rx] Lactobacillus [Culturelle] 1 each PO BID #6 cap.sprink 08/04/17 [Rx] Potassium Chloride [K-Tab ER] 20 meq PO DAILY #0 08/04/17 [Rx] levoFLOXacin [Levaquin] 500 mg PO DAILY #3 tablet 08/04/17 [Rx] Allergies/Adverse Reactions: 3 Allergy/AdvReac Type Severity Reaction Status Date / Time Sulfa (Sulfonamide Allergy Rash Verified 08/01/17 11:14 Antibiotics) codeine AdvReac Agitated Verified 08/01/17 11:14 morphine AdvReac Agitated Verified 08/01/17 11:14 Date of admission: 08/02/17 15:00 Primary care physician: Ji Loya MD - Patient Status Disposition: Home, Self-Care Condition: Fair Overall status at discharge: patient is progressing back to baseline - Discharge Instructions Follow Up With: Ji Loya MD [Primary Care Provider] - 1 week Forms: ED Satisfaction Letter - Diet and Activity Activity: resume usual activities as tolerated, wear oxygen at all times Diet: advance to your usual diet Hospital course: Ms. Barnes is a 67 year old female who came to emergency room complaining of progressive dyspnea over the past few days. She reports she has had a cough productive of whitish phlegm but no yellow, green, or hemoptysis. She has not had significant chest pain. She was evaluated in the emergency room and felt to have right lower lobe pneumonia with pleural effusion. She was admitted to [facility] for ongoing care needs. Initial orders were written by the emergency room physician. I saw her on August 01 and performed the history and physical. D-dimer returned elevated at 1276. I ordered chest CTA and abdominal/pelvis CT to further evaluate her dyspnea and weight loss. There was no evidence of pulmonary embolism. There is a [id number] right pleural effusion and partial consolidation of the right middle lobe and right lower lobe consistent with infection. She was started on IV Levaquin and will continue with oral Levaquin and lactobacillus for 3 additional days at discharge. She remained clinically stable with an WBC normal and no significant left shift on differential. Anemia testing showed iron 16, transferrin saturation 4%, transferrin 301, ferritin 29, B12 244, and folate 19.4. She had been on ferrous sulfate at home but was not absorbing it adequately based on anemia testing results. She was given IV iron dextran during hospitalization. Oral ferrous sulfate will be discontinued. Folate will also be discontinued. She will increase B12 dosage to 2000 mcg daily. Her Lasix dose was reduced to 20 mg daily. Magnesium level returned low at 1.3 and additional magnesium was given. Her magnesium level sana to 1.5 by day of discharge. Her gabapentin dose was decreased to 300 mg daily to lessen edema. Her mental status waxed and waned during the first 48 hours of hospitalization. Intermittent BiPAP was required. With further medication dosage adjustments she remained alert and talkative the last 24 hours of hospitalization. On August 04 she was stable for discharge home. She will follow with her PCP Dr. Ji Loya within 1 week. - Time Spent with Patient Total time spent providing and/or coordinating discharge services: - Constitutional Vitals: Temp Pulse Resp BP Pulse Ox 97.6 F 60 22 100/58 92 08/04/17 06:25 08/04/17 06:25 08/04/17 06:25 08/04/17 06:25 08/04/17 06:25 - VTE Reasons for not Prescribing Prophylaxis: Refused by patient
[2017-08-04] MEDS: Budesonide/Formoterol 160/4.5 MDI IH SCH (11:13)
[2017-08-04] MEDS: Albuterol 2.5 MG/3 ML NEBULIZER IH PRN (11:20)
== END 2017-08-04 12:58 | disposition home or self-care (01) | DRG 139 ==
LOC: INPPIK 11:11 → EMEROOPIK 11:11 → INPPIK 13:50
PROVIDERS: ADMIT Internal Medicine; ATTEND Internal Medicine

== ENCOUNTER 2019-11-07 09:14 | Observation (INO) ==
[2019-11-07] MEDS ORDERED: Ipratropium/Albuterol Neb 3 ML IH ONE (09:44)
[2019-11-07] MEDS ORDERED: 0.9 % Sodium Chloride 1,000 ML IVC ONE (09:44)
[2019-11-07 10:10] LABS: ABG Base Excess 18 mEq/L (-2 to 3); ABG HCO3 48 mEq/L (21-27); ABG Oxygen Saturation 99 % (95-98); ABG PCO2 78 mmHg (35-45); ABG PH 7.39 pH Units (7.32-7.45); ABG PO2 165 mmHg (85-104); ABG TCO2 > 50 mEq/L (20-26)
[2019-11-07 10:17] LABS: Basophils % 0.2 %; Hematocrit 41.9 % (35.3-44.9); Hemoglobin 12.7 g/dL (11.5-15.4); Immature Granulocytes % 0.3 % (0-4); Lymphocytes # 0.7 K/mcL (0.6-4.6); Lymphocytes % 8.1 %; Mean Corpuscular HGB Conc 30.3 g/dL (31.6-35.5); Mean Corpuscular Hemoglobin 29.4 pg (28.0-33.3); Mean Platelet Volume 9.6 fL (9.4-12.4); Monocytes # 0.6 K/mcL (0.0-1.3); Monocytes % 6.7 %; Neutrophils # 7.3 K/mcL (1.6-8.9); Platelet Count 155 K/mcL (140-400); Red Blood Count 4.32 M/mcL (3.82-4.97); Red Cell Distribution Width 12.4 % (11.5-14.5); Segmented Neutrophils % 84.7 %; White Blood Count 8.6 K/mcL (4.3-11.1)
[2019-11-07 10:24] LABS: Prothrombin Time 11.8 Seconds (9.4-12.1)
[2019-11-07 10:33] LABS: BUN/Creatinine Ratio 35 (6-26); Blood Urea Nitrogen 17 mg/dL (8-23); Calcium 9.3 mg/dL (8.6-10.3); Carbon Dioxide > 45 mEq/L (23-29); Chloride 90 mEq/L (98-107); Glucose 98 mg/dL (70-105); Osmolality,Calculated 298 (280-300); Potassium 4.1 mEq/L (3.5-5.1); Sodium 143 mEq/L (136-145); eGFR For African Americans > 60 (> 60); eGFR For Non-African Americans > 60 (> 60)
[2019-11-07 11:31] LABS: Bilirubin,Urine Small (Negative); Blood,Urine Negative (Negative); Clarity,Urine Clear (Clear); Color,Urine Yellow (Yellow); Glucose,Urine (UA) Normal (Normal); Ketones,Urine Trace mg/dL (Negative); Leukocyte Esterase,Urine Negative (Negative); Nitrite,Urine Negative (Negative); Protein,Urine 30 mg/dL (Neg-Trace); Urobilinogen,Urine Normal (Normal)
[2019-11-07 11:37] LABS: Bacteria,Urine Moderate per hpf (None-Few); Mucus,Urine Few per lpf (Few); RBC,Urine 0-3 per hpf (0-3); Squamous Epithelial Cell,Urine Few per lpf (None-Few); WBC,Urine 0-3 per hpf (0-3)
[2019-11-07] MEDS ORDERED: Ondansetron 4 MG/2 ML VIAL IVP PRN (15:00)
[2019-11-07] MEDS ORDERED: Naloxone 0.4 MG/ML INJ IVP PRN (15:00)
[2019-11-07] MEDS ORDERED: 0.9 % Sodium Chloride 1,000 ML IV ONE (15:08)
[2019-11-07] MEDS: *HR* Heparin 5,000 UNIT/ML VIAL SQ SCH (16:25)
[2019-11-07 19:58] LABS: Amphetamine Screen,Urine Negative ng/mL (Cutoff=1000); Barbiturate Screen,Urine Negative ng/mL (Cutoff=200); Benzodiazepines Screen,Urine Negative ng/mL (Cutoff=200); Cannabinoid Screen,Urine Negative ng/mL (Cutoff = 50); Cocaine Screen,Urine Negative ng/mL (Cutoff= 300); Opiate Screen,Urine Positive ng/mL (Cutoff=300); Phencyclidine Screen,Urine Negative ng/mL (Cutoff=25)
[2019-11-07] MEDS: Acetaminophen 325 MG TABLET PO PRN (20:17)
[2019-11-07] MEDS: Ketorolac 30 MG/ML VIAL IVP PRN (21:01)
[2019-11-07] MEDS ORDERED: *HR* HYDROcodone/Acet 7.5/325 mg TABLET PO ONE (21:58)
[2019-11-07] MEDS: Budesonide/Formoterol 160/4.5 1 PUFF INH IH SCH (22:15)
[2019-11-08] MEDS: *HR* Heparin 5,000 UNIT/ML VIAL SQ SCH ×2 (04:51→17:04)
[2019-11-08] MEDS: Ketorolac 30 MG/ML VIAL IVP PRN ×2 (04:51→13:41)
[2019-11-08 07:26] LABS: Hematocrit 39.7 % (35.3-44.9); Hemoglobin 11.8 g/dL (11.5-15.4); Mean Corpuscular HGB Conc 29.7 g/dL (31.6-35.5); Mean Corpuscular Hemoglobin 29.1 pg (28.0-33.3); Mean Platelet Volume 9.6 fL (9.4-12.4); Platelet Count 155 K/mcL (140-400); Red Blood Count 4.05 M/mcL (3.82-4.97); Red Cell Distribution Width 12.4 % (11.5-14.5); White Blood Count 5.1 K/mcL (4.3-11.1)
[2019-11-08 07:50] LABS: BUN/Creatinine Ratio 33 (6-26); Blood Urea Nitrogen 15 mg/dL (8-23); Carbon Dioxide > 45 mEq/L (23-29); Chloride 94 mEq/L (98-107); Glucose 92 mg/dL (70-105); Osmolality,Calculated 298 (280-300); Sodium 144 mEq/L (136-145); eGFR For African Americans > 60 (> 60); eGFR For Non-African Americans > 60 (> 60)
[2019-11-08] MEDS ORDERED: cefTRIAXone 2,000 MG in 0.9 % Sodium Chloride Mini Bag 100 ML IVPB SCH (09:00)
[2019-11-08] MEDS: acetaZOLAMIDE 250 MG TABLET PO SCH (09:25)
[2019-11-08] MEDS: Aspirin Enteric Coated 325 MG Tablet PO SCH (09:25)
[2019-11-08] MEDS: Folic Acid 1 MG TABLET PO SCH (09:26)
[2019-11-08] MEDS: Cyanocobalamin (B-12) 1,000 MCG TABLET PO SCH (09:26)
[2019-11-08] MEDS: Metoprolol XL (24 HR) Succ 50 MG TAB.ER.24H PO SCH (09:26)
[2019-11-08] MEDS: Budesonide/Formoterol 160/4.5 1 PUFF INH IH SCH ×2 (10:50→22:44)
[2019-11-08] MEDS: Acetaminophen 325 MG TABLET PO PRN (13:41)
[2019-11-09] MEDS: *HR* Heparin 5,000 UNIT/ML VIAL SQ SCH (05:49)
[2019-11-09 06:52] VITALS: BP 118/56
[2019-11-09 07:44] LABS: Hematocrit 46.1 % (35.3-44.9); Hemoglobin 13.5 g/dL (11.5-15.4); Mean Corpuscular HGB Conc 29.3 g/dL (31.6-35.5); Mean Corpuscular Volume 98.9 fL (83.0-100.0); Mean Platelet Volume 9.7 fL (9.4-12.4); Platelet Count 185 K/mcL (140-400); Red Blood Count 4.66 M/mcL (3.82-4.97); Red Cell Distribution Width 12.5 % (11.5-14.5)
[2019-11-09] MEDS: Ketorolac 30 MG/ML VIAL IVP PRN (09:25)
[2019-11-09] MEDS: acetaZOLAMIDE 250 MG TABLET PO SCH (09:25)
[2019-11-09] MEDS: Folic Acid 1 MG TABLET PO SCH (09:25)
[2019-11-09] MEDS: Metoprolol XL (24 HR) Succ 50 MG TAB.ER.24H PO SCH (09:25)
[2019-11-09] MEDS: Cyanocobalamin (B-12) 1,000 MCG TABLET PO SCH (09:25)
[2019-11-09] MEDS: Aspirin Enteric Coated 325 MG Tablet PO SCH (09:25)
[2019-11-09 09:30] LABS: BUN/Creatinine Ratio 22 (6-26); Blood Urea Nitrogen 14 mg/dL (8-23); Calcium 9.9 mg/dL (8.6-10.3); Carbon Dioxide 43 mEq/L (23-29); Chloride 97 mEq/L (98-107); Glucose 93 mg/dL (70-105); Osmolality,Calculated 298 (280-300); Potassium 4.3 mEq/L (3.5-5.1); Sodium 144 mEq/L (136-145); eGFR For African Americans > 60 (> 60); eGFR For Non-African Americans > 60 (> 60)
[2019-11-09] MEDS: Budesonide/Formoterol 160/4.5 1 PUFF INH IH SCH (11:05)
== END 2019-11-09 11:45 | disposition home or self-care (01) ==
LOC: INPPIK 09:14 → EMEROOPIK 09:14 → INPPIK 13:36
PROVIDERS: ADMIT Family Medicine; ATTEND Family Medicine

== ENCOUNTER 2019-12-25 15:26 | Inpatient (IN) ==
[2019-12-25] MEDS ORDERED: Ipratropium/Albuterol Neb 3 ML IH ONE (15:34)
[2019-12-25 16:06] LABS: Basophils % 0.5 %; Eosinophils % 0.7 %; Hematocrit 39.5 % (35.3-44.9); Immature Granulocytes % 0.2 % (0-4); Lymphocytes # 1.4 K/mcL (0.6-4.6); Lymphocytes % 31.9 %; Mean Corpuscular HGB Conc 30.4 g/dL (31.6-35.5); Mean Corpuscular Hemoglobin 30.1 pg (28.0-33.3); Mean Platelet Volume 9.6 fL (9.4-12.4); Monocytes # 0.4 K/mcL (0.0-1.3); Monocytes % 9.2 %; Neutrophils # 2.5 K/mcL (1.6-8.9); Platelet Count 158 K/mcL (140-400); Red Blood Count 3.99 M/mcL (3.82-4.97); Red Cell Distribution Width 12.5 % (11.5-14.5); Segmented Neutrophils % 57.5 %; White Blood Count 4.3 K/mcL (4.3-11.1)
[2019-12-25 16:26] LABS: Prothrombin Time 10.8 Seconds (9.4-12.1)
[2019-12-25 16:27] LABS: Activated Partial Thrombo Time 35.7 Seconds (26.0-36.0)
[2019-12-25] MEDS ORDERED: cefTRIAXone 2,000 MG in 0.9 % Sodium Chloride Mini Bag 100 ML IVPB ONE (16:31)
[2019-12-25] MEDS ORDERED: Azithromycin 500 MG in 0.9 % Sodium Chloride 250 ML IVPB ONE (16:31)
[2019-12-25] MEDS ORDERED: methylPREDNISolone 125 MG/2 ML VIAL IVP ONE (16:31)
[2019-12-25 16:36] LABS: BUN/Creatinine Ratio 23 (6-26); Blood Urea Nitrogen 11 mg/dL (8-23); Calcium 9.5 mg/dL (8.6-10.3); Carbon Dioxide > 45 mEq/L (23-29); Chloride 89 mEq/L (98-107); Glucose 93 mg/dL (70-105); Osmolality,Calculated 293 (280-300); Potassium 4.1 mEq/L (3.5-5.1); Sodium 142 mEq/L (136-145); Troponin I < 0.03 ng/mL (< 0.04); eGFR For African Americans > 60 (> 60); eGFR For Non-African Americans > 60 (> 60)
[2019-12-25] MEDS ORDERED: Naloxone 0.4 MG/ML INJ IVP PRN (17:43)
[2019-12-25] MEDS ORDERED: Mag Hydrox/Al Hydrox/Simeth 30 ML UDC PO PRN (17:43)
[2019-12-25] MEDS ORDERED: Ondansetron 4 MG/2 ML VIAL IVP PRN (17:43)
[2019-12-25] MEDS ORDERED: MOM Conc 10 ML UD.LIQ PO PRN (17:43)
[2019-12-25] MEDS ORDERED: Ipratropium/Albuterol Neb 3 ML IH PRN (17:53)
[2019-12-25] MEDS: Furosemide 20 MG TABLET PO SCH (20:45)
[2019-12-25] MEDS: Methylphenidate HCl 10 MG TABLET PO SCH (20:45)
[2019-12-25] MEDS: *HR* HYDROcodone/Acet 7.5/325 mg TABLET PO SCH (20:47)
[2019-12-25] MEDS: Fluticasone Propionate Nasal 50 MCG/SPRAY BOTTLE NS SCH (20:48)
[2019-12-25] MEDS: Insulin LISPRO 300 UNITS/3 ML VIAL SQ SCH (20:49)
[2019-12-25] MEDS: MethylPREDNISolone 40 MG/ML VIAL IVP SCH (23:47)
[2019-12-26] MEDS: Acetaminophen 325 MG TABLET PO PRN ×2 (04:51→10:59)
[2019-12-26 05:26] LABS: Hematocrit 37.3 % (35.3-44.9); Hemoglobin 11.5 g/dL (11.5-15.4); Immature Granulocytes % 0.4 % (0-4); Lymphocytes # 0.6 K/mcL (0.6-4.6); Lymphocytes % 22.3 %; Mean Corpuscular HGB Conc 30.8 g/dL (31.6-35.5); Mean Corpuscular Hemoglobin 29.6 pg (28.0-33.3); Mean Corpuscular Volume 95.9 fL (83.0-100.0); Mean Platelet Volume 9.7 fL (9.4-12.4); Monocytes # 0.1 K/mcL (0.0-1.3); Monocytes % 1.8 %; Neutrophils # 2.1 K/mcL (1.6-8.9); Platelet Count 148 K/mcL (140-400); Red Blood Count 3.89 M/mcL (3.82-4.97); Red Cell Distribution Width 12.4 % (11.5-14.5); Segmented Neutrophils % 75.5 %; White Blood Count 2.8 K/mcL (4.3-11.1)
[2019-12-26] MEDS: Nicotine 14 MG PATCH.TD24 TD SCH (08:09)
[2019-12-26] MEDS: MethylPREDNISolone 40 MG/ML VIAL IVP SCH ×3 (08:09→23:52)
[2019-12-26] MEDS: Methylphenidate HCl 10 MG TABLET PO SCH ×2 (08:09→20:25)
[2019-12-26] MEDS: *HR* Rivaroxaban 10 MG TABLET PO SCH (08:10)
[2019-12-26] MEDS: Fluticasone Propionate Nasal 50 MCG/SPRAY BOTTLE NS SCH ×2 (08:10→20:19)
[2019-12-26] MEDS: Metoprolol XL (24 HR) Succ 50 MG TAB.ER.24H PO SCH (08:10)
[2019-12-26] MEDS: Aspirin 81 MG TAB.CHEW PO SCH (08:10)
[2019-12-26] MEDS: Folic Acid 1 MG TABLET PO SCH (08:10)
[2019-12-26] MEDS: Magnesium Oxide 400 MG TABLET PO SCH (08:10)
[2019-12-26] MEDS: Furosemide 20 MG TABLET PO SCH ×2 (08:10→16:58)
[2019-12-26] MEDS: Gabapentin 300 MG CAPSULE PO SCH (08:10)
[2019-12-26] MEDS: *HR* HYDROcodone/Acet 7.5/325 mg TABLET PO SCH ×3 (08:10→20:18)
[2019-12-26] MEDS: Insulin LISPRO 300 UNITS/3 ML VIAL SQ SCH ×4 (08:11→20:22)
[2019-12-26 08:22] LABS: BUN/Creatinine Ratio 24 (6-26); Blood Urea Nitrogen 12 mg/dL (8-23); Calcium 9.2 mg/dL (8.6-10.3); Carbon Dioxide > 45 mEq/L (23-29); Chloride 91 mEq/L (98-107); Glucose 144 mg/dL (70-105); Osmolality,Calculated 296 (280-300); Potassium 4.1 mEq/L (3.5-5.1); Sodium 142 mEq/L (136-145); eGFR For African Americans > 60 (> 60); eGFR For Non-African Americans > 60 (> 60)
[2019-12-26] MEDS: Tiotropium 18 MCG inhalation IH SCH (10:50)
[2019-12-26 11:31] LABS: Adenovirus Not Detected (Not Detect); Bordetella Pertussis Not Detected (Not Detect); Chlamydophila pneumoniae Not Detected (Not Detect); Coronavirus 229E Not Detected (Not Detect); Coronavirus HKU1 Not Detected (Not Detect); Coronavirus NL63 Not Detected (Not Detect); Coronavirus OC43 Not Detected (Not Detect); Human Metapneumovirus Not Detected (Not Detect); Human Rhinovirus/Enterovirus Not Detected (Not Detect); Influenza A Subtype 2009 H1 Not Detected (Not Detect); Influenza B Not Detected (Not Detect); Mycoplasma pneumoniae Not Detected (Not Detect); Parainfluenza Virus 1 Not Detected (Not Detect); Parainfluenza Virus 2 Not Detected (Not Detect); Parainfluenza Virus 3 Not Detected (Not Detect); Parainfluenza Virus 4 Not Detected (Not Detect); Respiratory Syncytial Virus Not Detected (Not Detect)
[2019-12-26] MEDS: acetaZOLAMIDE 250 MG TABLET PO SCH ×2 (14:31→20:18)
[2019-12-26] MEDS ORDERED: cefTRIAXone 1,000 MG in Water for inj. (sterile) 10 ML IVP SCH (18:00)
[2019-12-26] MEDS ORDERED: Azithromycin 500 MG in 0.9 % Sodium Chloride 250 ML IVPB SCH (18:00)
[2019-12-26] MEDS: ALPRAZolam 0.5 MG TABLET PO PRN (22:34)
[2019-12-27 06:25] LABS: ABG Base Excess 13 mEq/L (-2 to 3); ABG HCO3 44 mEq/L (21-27); ABG Oxygen Saturation 97 % (95-98); ABG PCO2 96 mmHg (35-45); ABG PH 7.27 pH Units (7.32-7.45); ABG PO2 107 mmHg (85-104); ABG TCO2 47 mEq/L (20-26)
[2019-12-27 06:28] LABS: Hematocrit 37.8 % (35.3-44.9); Hemoglobin 11.8 g/dL (11.5-15.4); Immature Granulocytes % 0.3 % (0-4); Lymphocytes # 0.7 K/mcL (0.6-4.6); Lymphocytes % 12.4 %; Mean Corpuscular HGB Conc 31.2 g/dL (31.6-35.5); Mean Corpuscular Hemoglobin 29.9 pg (28.0-33.3); Mean Corpuscular Volume 95.7 fL (83.0-100.0); Mean Platelet Volume 10.2 fL (9.4-12.4); Monocytes # 0.2 K/mcL (0.0-1.3); Monocytes % 2.8 %; Neutrophils # 4.9 K/mcL (1.6-8.9); Platelet Count 164 K/mcL (140-400); Red Blood Count 3.95 M/mcL (3.82-4.97); Red Cell Distribution Width 12.2 % (11.5-14.5); Segmented Neutrophils % 84.5 %; White Blood Count 5.8 K/mcL (4.3-11.1)
[2019-12-27 07:55] LABS: BUN/Creatinine Ratio 28 (6-26); Blood Urea Nitrogen 19 mg/dL (8-23); Calcium 9.6 mg/dL (8.6-10.3); Carbon Dioxide 45 mEq/L (23-29); Chloride 93 mEq/L (98-107); Glucose 156 mg/dL (70-105); Osmolality,Calculated 297 (280-300); Potassium 3.9 mEq/L (3.5-5.1); Sodium 141 mEq/L (136-145); eGFR For African Americans > 60 (> 60); eGFR For Non-African Americans > 60 (> 60)
[2019-12-27 08:08] LABS: ABG Base Excess 13 mEq/L (-2 to 3); ABG HCO3 44 mEq/L (21-27); ABG Oxygen Saturation 94 % (95-98); ABG PCO2 92 mmHg (35-45); ABG PH 7.29 pH Units (7.32-7.45); ABG PO2 86 mmHg (85-104); ABG TCO2 47 mEq/L (20-26); Blood Gas VT 500 cc
[2019-12-27] MEDS: Insulin LISPRO 300 UNITS/3 ML VIAL SQ SCH ×4 (08:34→21:45)
[2019-12-27] MEDS: Methylphenidate HCl 10 MG TABLET PO SCH ×2 (08:35→21:45)
[2019-12-27] MEDS: acetaZOLAMIDE 250 MG TABLET PO SCH ×2 (08:36→21:01)
[2019-12-27] MEDS: Gabapentin 300 MG CAPSULE PO SCH (08:36)
[2019-12-27] MEDS: Furosemide 20 MG TABLET PO SCH ×2 (08:36→17:24)
[2019-12-27] MEDS: Magnesium Oxide 400 MG TABLET PO SCH (08:36)
[2019-12-27] MEDS: Nicotine 14 MG PATCH.TD24 TD SCH (08:36)
[2019-12-27] MEDS: Metoprolol XL (24 HR) Succ 50 MG TAB.ER.24H PO SCH (08:37)
[2019-12-27] MEDS: MethylPREDNISolone 40 MG/ML VIAL IVP SCH ×3 (08:37→23:44)
[2019-12-27] MEDS: *HR* HYDROcodone/Acet 7.5/325 mg TABLET PO SCH ×3 (08:37→21:01)
[2019-12-27] MEDS: Aspirin 81 MG TAB.CHEW PO SCH (08:37)
[2019-12-27] MEDS: Fluticasone Propionate Nasal 50 MCG/SPRAY BOTTLE NS SCH ×2 (08:37→21:45)
[2019-12-27] MEDS: Folic Acid 1 MG TABLET PO SCH (08:37)
[2019-12-27] MEDS: *HR* Rivaroxaban 10 MG TABLET PO SCH (08:37)
[2019-12-27] MEDS: Tiotropium 18 MCG inhalation IH SCH (09:04)
[2019-12-27] MEDS: ALPRAZolam 0.5 MG TABLET PO PRN (21:07)
[2019-12-28 08:09] LABS: Blood Gas VT 500 cc; VBG HCO3 38 mEq/L (21-27); VBG PCO2 79 mmHg (41-51); VBG PH 7.29 pH Units (7.32-7.42); VBG PO2 33 mmHg (25-50)
[2019-12-28 08:09] LABS: Basophils % 0.1 %; Hematocrit 42.6 % (35.3-44.9); Hemoglobin 13.2 g/dL (11.5-15.4); Immature Granulocytes % 0.7 % (0-4); Lymphocytes # 1.1 K/mcL (0.6-4.6); Lymphocytes % 16.6 %; Mean Corpuscular Hemoglobin 29.5 pg (28.0-33.3); Mean Corpuscular Volume 95.1 fL (83.0-100.0); Monocytes # 0.3 K/mcL (0.0-1.3); Neutrophils # 5.3 K/mcL (1.6-8.9); Platelet Count 176 K/mcL (140-400); Red Blood Count 4.48 M/mcL (3.82-4.97); Red Cell Distribution Width 12.5 % (11.5-14.5); Segmented Neutrophils % 78.6 %; White Blood Count 6.7 K/mcL (4.3-11.1)
[2019-12-28] MEDS: Insulin LISPRO 300 UNITS/3 ML VIAL SQ SCH ×4 (08:17→20:48)
[2019-12-28] MEDS: Tiotropium 18 MCG inhalation IH SCH (08:24)
[2019-12-28] MEDS: Methylphenidate HCl 10 MG TABLET PO SCH ×2 (08:28→20:50)
[2019-12-28] MEDS: acetaZOLAMIDE 250 MG TABLET PO SCH ×2 (08:28→20:43)
[2019-12-28] MEDS: Metoprolol XL (24 HR) Succ 50 MG TAB.ER.24H PO SCH (08:28)
[2019-12-28] MEDS: Magnesium Oxide 400 MG TABLET PO SCH (08:28)
[2019-12-28] MEDS: Aspirin 81 MG TAB.CHEW PO SCH (08:29)
[2019-12-28] MEDS: *HR* Rivaroxaban 10 MG TABLET PO SCH (08:29)
[2019-12-28] MEDS: MethylPREDNISolone 40 MG/ML VIAL IVP SCH ×3 (08:29→23:59)
[2019-12-28] MEDS: *HR* HYDROcodone/Acet 7.5/325 mg TABLET PO SCH ×3 (08:29→20:42)
[2019-12-28] MEDS: Gabapentin 300 MG CAPSULE PO SCH (08:29)
[2019-12-28] MEDS: Nicotine 14 MG PATCH.TD24 TD SCH (08:33)
[2019-12-28] MEDS: Fluticasone Propionate Nasal 50 MCG/SPRAY BOTTLE NS SCH ×2 (08:33→20:43)
[2019-12-28] MEDS: Folic Acid 1 MG TABLET PO SCH (08:34)
[2019-12-28 08:38] LABS: BUN/Creatinine Ratio 32 (6-26); Blood Urea Nitrogen 21 mg/dL (8-23); Calcium 9.7 mg/dL (8.6-10.3); Carbon Dioxide 41 mEq/L (23-29); Chloride 96 mEq/L (98-107); Glucose 135 mg/dL (70-105); Osmolality,Calculated 293 (280-300); Potassium 4.3 mEq/L (3.5-5.1); Sodium 139 mEq/L (136-145); eGFR For African Americans > 60 (> 60); eGFR For Non-African Americans > 60 (> 60)
[2019-12-28] MEDS: ALPRAZolam 0.5 MG TABLET PO PRN (20:43)
[2019-12-29 07:24] LABS: Hematocrit 41.2 % (35.3-44.9); Immature Granulocytes % 0.5 % (0-4); Lymphocytes # 0.9 K/mcL (0.6-4.6); Lymphocytes % 15.2 %; Mean Corpuscular HGB Conc 31.6 g/dL (31.6-35.5); Mean Corpuscular Hemoglobin 29.4 pg (28.0-33.3); Mean Corpuscular Volume 93.2 fL (83.0-100.0); Mean Platelet Volume 10.4 fL (9.4-12.4); Monocytes # 0.3 K/mcL (0.0-1.3); Monocytes % 4.4 %; Neutrophils # 4.9 K/mcL (1.6-8.9); Platelet Count 173 K/mcL (140-400); Red Blood Count 4.42 M/mcL (3.82-4.97); Red Cell Distribution Width 12.6 % (11.5-14.5); Segmented Neutrophils % 79.9 %; White Blood Count 6.1 K/mcL (4.3-11.1)
[2019-12-29 07:42] LABS: BUN/Creatinine Ratio 41 (6-26); Blood Urea Nitrogen 22 mg/dL (8-23); Calcium 9.6 mg/dL (8.6-10.3); Carbon Dioxide 36 mEq/L (23-29); Chloride 98 mEq/L (98-107); Glucose 162 mg/dL (70-105); Osmolality,Calculated 295 (280-300); Sodium 139 mEq/L (136-145); eGFR For African Americans > 60 (> 60); eGFR For Non-African Americans > 60 (> 60)
[2019-12-29 07:44] LABS: ABG Base Excess 7 mEq/L (-2 to 3); ABG HCO3 36 mEq/L (21-27); ABG Oxygen Saturation 99 % (95-98); ABG PCO2 69 mmHg (35-45); ABG PH 7.32 pH Units (7.32-7.45); ABG PO2 173 mmHg (85-104); ABG TCO2 38 mEq/L (20-26)
[2019-12-29] MEDS: Insulin LISPRO 300 UNITS/3 ML VIAL SQ SCH ×2 (08:06→11:26)
[2019-12-29] MEDS: Nicotine 14 MG PATCH.TD24 TD SCH (08:07)
[2019-12-29] MEDS: Metoprolol XL (24 HR) Succ 50 MG TAB.ER.24H PO SCH (08:08)
[2019-12-29] MEDS: Methylphenidate HCl 10 MG TABLET PO SCH (08:08)
[2019-12-29] MEDS: MethylPREDNISolone 40 MG/ML VIAL IVP SCH (08:08)
[2019-12-29] MEDS: Gabapentin 300 MG CAPSULE PO SCH (08:09)
[2019-12-29] MEDS: Magnesium Oxide 400 MG TABLET PO SCH (08:09)
[2019-12-29] MEDS: acetaZOLAMIDE 250 MG TABLET PO SCH (08:09)
[2019-12-29] MEDS: *HR* Rivaroxaban 10 MG TABLET PO SCH (08:09)
[2019-12-29] MEDS: *HR* HYDROcodone/Acet 7.5/325 mg TABLET PO SCH (08:09)
[2019-12-29] MEDS: Furosemide 20 MG TABLET PO SCH (08:09)
[2019-12-29] MEDS: Folic Acid 1 MG TABLET PO SCH (08:09)
[2019-12-29] MEDS: Aspirin 81 MG TAB.CHEW PO SCH (08:09)
[2019-12-29] MEDS: Fluticasone Propionate Nasal 50 MCG/SPRAY BOTTLE NS SCH (08:09)
[2019-12-29] MEDS: Tiotropium 18 MCG inhalation IH SCH (09:53)
[2019-12-29 10:51] VITALS: BP 141/67
== END 2019-12-29 13:23 | disposition home or self-care (01) | DRG 140 ==
LOC: EMEROOPIK 15:26 → INPPIK 15:26
PROVIDERS: ADMIT Family Medicine; ATTEND Family Medicine

== ENCOUNTER 2020-06-04 13:41 | Observation (INO) ==
[2020-06-04 14:12] LABS: Basophils % 0.3 %; Eosinophils # 0.1 K/mcL (0.0-0.6); Hematocrit 34.8 % (35.3-44.9); Hemoglobin 9.8 g/dL (11.5-15.4); Immature Granulocytes % 0.7 % (0-4); Lymphocytes # 1.3 K/mcL (0.6-4.6); Mean Corpuscular HGB Conc 28.2 g/dL (31.6-35.5); Mean Corpuscular Hemoglobin 27.3 pg (28.0-33.3); Mean Corpuscular Volume 96.9 fL (83.0-100.0); Mean Platelet Volume 9.1 fL (9.4-12.4); Monocytes # 0.5 K/mcL (0.0-1.3); Monocytes % 7.4 %; Neutrophils # 4.2 K/mcL (1.6-8.9); Platelet Count 288 K/mcL (140-400); Red Blood Count 3.59 M/mcL (3.82-4.97); Red Cell Distribution Width 14.7 % (11.5-14.5); Segmented Neutrophils % 69.6 %; White Blood Count 6.1 K/mcL (4.3-11.1)
[2020-06-04 14:22] LABS: INR 2.4; Prothrombin Time 26.7 Seconds (9.4-12.1)
[2020-06-04 14:24] LABS: Activated Partial Thrombo Time 40.9 Seconds (26.0-36.0)
[2020-06-04 14:39] LABS: Alanine Aminotransferase 22 Units/L (7-52); Albumin 3.5 g/dL (3.5-5.7); Albumin/Globulin Ratio 1.2 (1.1-2.2); Alkaline Phosphatase 81 Units/L (34-104); Aspartate Amino Transferase 18 Units/L (13-39); BUN/Creatinine Ratio 24 (6-26); Bilirubin,Total 0.3 mg/dL (0.3-1.0); Blood Urea Nitrogen 13 mg/dL (8-23); Calcium 9.2 mg/dL (8.6-10.3); Chloride 95 mEq/L (98-107); Glucose 105 mg/dL (70-105); Magnesium 1.7 mg/dL (1.6-2.6); Osmolality,Calculated 298 (280-300); Potassium 4.4 mEq/L (3.5-5.1); Sodium 144 mEq/L (136-145); Total Protein 6.5 g/dL (6.4-8.9); Troponin I < 0.03 ng/mL (< 0.04); eGFR For African Americans > 60 (> 60); eGFR For Non-African Americans > 60 (> 60)
[2020-06-04 14:45] LABS: Anisocytosis 1+ (Not Present); Platelet Estimate Normal (Normal); Polychromasia 1+ (Not Present)
[2020-06-04] MEDS ORDERED: Isovue-370 500 ML BOTTLE IVP ONE (14:50)
[2020-06-04 14:54] LABS: Carbon Dioxide > 47 mEq/L (23-29)
[2020-06-04] MEDS ORDERED: Furosemide 40 MG/4 ML VIAL IVP ONE (15:13)
[2020-06-04] MEDS ORDERED: Ondansetron 4 MG/2 ML VIAL IVP PRN (15:55)
[2020-06-04] MEDS ORDERED: Naloxone 0.4 MG/ML INJ IVP PRN (15:55)
[2020-06-04] MEDS ORDERED: Acetaminophen 325 MG TABLET PO PRN (15:55)
[2020-06-04] MEDS: Gabapentin 300 MG CAPSULE PO SCH (20:16)
[2020-06-04] MEDS: Furosemide 40 MG/4 ML VIAL IVP SCH (20:16)
[2020-06-05 06:48] LABS: Hematocrit 30.9 % (35.3-44.9); Hemoglobin 8.9 g/dL (11.5-15.4); Mean Corpuscular HGB Conc 28.8 g/dL (31.6-35.5); Mean Corpuscular Hemoglobin 27.3 pg (28.0-33.3); Mean Corpuscular Volume 94.8 fL (83.0-100.0); Mean Platelet Volume 9.4 fL (9.4-12.4); Platelet Count 287 K/mcL (140-400); Red Blood Count 3.26 M/mcL (3.82-4.97); Red Cell Distribution Width 14.6 % (11.5-14.5); White Blood Count 5.6 K/mcL (4.3-11.1)
[2020-06-05] MEDS ORDERED: Ipratropium/Albuterol Neb 3 ML IH PRN (07:32)
[2020-06-05 07:33] LABS: BUN/Creatinine Ratio 20 (6-26); Blood Urea Nitrogen 12 mg/dL (8-23); Calcium 8.8 mg/dL (8.6-10.3); Carbon Dioxide > 45 mEq/L (23-29); Chloride 90 mEq/L (98-107); Glucose 94 mg/dL (70-105); Magnesium 1.5 mg/dL (1.6-2.6); Osmolality,Calculated 296 (280-300); Potassium 3.6 mEq/L (3.5-5.1); Sodium 143 mEq/L (136-145); eGFR For African Americans > 60 (> 60); eGFR For Non-African Americans > 60 (> 60)
[2020-06-05] MEDS: *HR* Rivaroxaban 10 MG TABLET PO SCH (08:05)
[2020-06-05] MEDS: *HR* Amiodarone 200 MG TABLET PO SCH (08:05)
[2020-06-05] MEDS: Aspirin 81 MG TAB.CHEW PO SCH (08:05)
[2020-06-05] MEDS: Furosemide 40 MG/4 ML VIAL IVP SCH (08:07)
[2020-06-05] MEDS ORDERED: Albuterol 2.5 MG/3 ML NEBULIZER IH PRN (08:15)
[2020-06-05] MEDS: Methylphenidate HCl 5 MG TABLET PO SCH ×4 (08:18→15:01)
[2020-06-05] MEDS: Tiotropium 18 MCG inhalation IH SCH (08:24)
[2020-06-05] MEDS ORDERED: Furosemide 20 MG/2 ML VIAL IVP ONE (15:00)
[2020-06-05] MEDS: *HR* HYDROcodone/Acet 7.5/325 mg TABLET PO PRN (15:02)
[2020-06-05] MEDS: Gabapentin 300 MG CAPSULE PO SCH (20:26)
[2020-06-05] MEDS: Melatonin 3 MG TABLET PO PRN (23:32)
[2020-06-06 09:34] LABS: Hemoglobin 10.4 g/dL (11.5-15.4); Mean Corpuscular HGB Conc 28.9 g/dL (31.6-35.5); Mean Corpuscular Hemoglobin 27.4 pg (28.0-33.3); Platelet Count 302 K/mcL (140-400); Red Blood Count 3.79 M/mcL (3.82-4.97); Red Cell Distribution Width 14.6 % (11.5-14.5); White Blood Count 6.1 K/mcL (4.3-11.1)
[2020-06-06] MEDS: Aspirin 81 MG TAB.CHEW PO SCH (09:46)
[2020-06-06] MEDS: Methylphenidate HCl 5 MG TABLET PO SCH ×2 (09:46→14:27)
[2020-06-06] MEDS: Furosemide 40 MG TABLET PO SCH ×2 (09:46→16:27)
[2020-06-06] MEDS: *HR* Rivaroxaban 10 MG TABLET PO SCH (09:46)
[2020-06-06] MEDS: *HR* HYDROcodone/Acet 7.5/325 mg TABLET PO PRN (09:46)
[2020-06-06] MEDS: *HR* Amiodarone 200 MG TABLET PO SCH (09:46)
[2020-06-06 09:50] LABS: BUN/Creatinine Ratio 21 (6-26); Blood Urea Nitrogen 13 mg/dL (8-23); Calcium 9.4 mg/dL (8.6-10.3); Chloride 90 mEq/L (98-107); Glucose 125 mg/dL (70-105); Osmolality,Calculated 298 (280-300); Potassium 3.8 mEq/L (3.5-5.1); Sodium 143 mEq/L (136-145); eGFR For African Americans > 60 (> 60); eGFR For Non-African Americans > 60 (> 60)
[2020-06-06 10:06] LABS: Carbon Dioxide > 45 mEq/L (23-29)
[2020-06-06] MEDS: Tiotropium 18 MCG inhalation IH SCH (10:45)
[2020-06-06] MEDS ORDERED: FLU Vac QV 20-21 (6Month+)/PF 0.5 ML SYRINGE IM ONE (11:32)
[2020-06-06] MEDS ORDERED: *HR* LORazepam 0.5 MG TABLET PO ONE (14:17)
[2020-06-06] MEDS: Gabapentin 300 MG CAPSULE PO SCH (21:45)
[2020-06-07] MEDS: Melatonin 3 MG TABLET PO PRN (00:50)
[2020-06-07 08:24] LABS: Hematocrit 34.1 % (35.3-44.9); Mean Corpuscular HGB Conc 29.3 g/dL (31.6-35.5); Mean Corpuscular Hemoglobin 27.2 pg (28.0-33.3); Mean Corpuscular Volume 92.7 fL (83.0-100.0); Mean Platelet Volume 9.1 fL (9.4-12.4); Platelet Count 274 K/mcL (140-400); Red Blood Count 3.68 M/mcL (3.82-4.97); Red Cell Distribution Width 14.6 % (11.5-14.5); White Blood Count 5.1 K/mcL (4.3-11.1)
[2020-06-07 08:58] LABS: BUN/Creatinine Ratio 31 (6-26); Blood Urea Nitrogen 19 mg/dL (8-23); Calcium 9.2 mg/dL (8.6-10.3); Carbon Dioxide > 45 mEq/L (23-29); Chloride 90 mEq/L (98-107); Glucose 76 mg/dL (70-105); Osmolality,Calculated 301 (280-300); Potassium 3.4 mEq/L (3.5-5.1); Sodium 145 mEq/L (136-145); eGFR For African Americans > 60 (> 60); eGFR For Non-African Americans > 60 (> 60)
[2020-06-07] MEDS: Aspirin 81 MG TAB.CHEW PO SCH (09:03)
[2020-06-07] MEDS: Furosemide 40 MG TABLET PO SCH ×2 (09:03→16:44)
[2020-06-07] MEDS: *HR* Amiodarone 200 MG TABLET PO SCH (09:04)
[2020-06-07] MEDS: *HR* Rivaroxaban 10 MG TABLET PO SCH (09:04)
[2020-06-07] MEDS: Methylphenidate HCl 5 MG TABLET PO SCH ×2 (09:06→12:16)
[2020-06-07] MEDS: *HR* HYDROcodone/Acet 7.5/325 mg TABLET PO PRN (09:12)
[2020-06-07] MEDS: Tiotropium 18 MCG inhalation IH SCH (11:12)
[2020-06-07] MEDS: Gabapentin 300 MG CAPSULE PO SCH (19:44)
[2020-06-08] MEDS ORDERED: Nitroglycerin 0.4 MG TAB.SUBL SL PRN (03:09)
[2020-06-08 04:31] LABS: White Blood Count 5.3 K/mcL (4.3-11.1)
[2020-06-08 04:32] LABS: Basophils % 0.8 %; Eosinophils # 0.1 K/mcL (0.0-0.6); Eosinophils % 1.3 %; Hematocrit 34.4 % (35.3-44.9); Hemoglobin 10.2 g/dL (11.5-15.4); Immature Granulocytes % 0.6 % (0-4); Lymphocytes # 1.3 K/mcL (0.6-4.6); Lymphocytes % 24.4 %; Mean Corpuscular HGB Conc 29.7 g/dL (31.6-35.5); Mean Corpuscular Hemoglobin 27.3 pg (28.0-33.3); Mean Platelet Volume 9.2 fL (9.4-12.4); Monocytes # 0.5 K/mcL (0.0-1.3); Monocytes % 9.6 %; Neutrophils # 3.4 K/mcL (1.6-8.9); Platelet Count 266 K/mcL (140-400); Red Blood Count 3.74 M/mcL (3.82-4.97); Red Cell Distribution Width 14.5 % (11.5-14.5); Segmented Neutrophils % 63.3 %
[2020-06-08 04:49] LABS: Troponin I < 0.03 ng/mL (< 0.04)
[2020-06-08 05:30] LABS: Chloride 88 mEq/L (98-107); Potassium 3.4 mEq/L (3.5-5.1); Sodium 144 mEq/L (136-145)
[2020-06-08 05:32] LABS: Carbon Dioxide > 45 mEq/L (23-29)
[2020-06-08 05:33] LABS: BUN/Creatinine Ratio 23 (6-26); Blood Urea Nitrogen 20 mg/dL (8-23); Calcium 9.1 mg/dL (8.6-10.3); Glucose 136 mg/dL (70-105); Magnesium 1.7 mg/dL (1.6-2.6); Osmolality,Calculated 303 (280-300); eGFR For African Americans > 60 (> 60); eGFR For Non-African Americans > 60 (> 60)
[2020-06-08] MEDS: Tiotropium 18 MCG inhalation IH SCH (09:12)
[2020-06-08] MEDS: *HR* Rivaroxaban 10 MG TABLET PO SCH (09:17)
[2020-06-08] MEDS: Aspirin 81 MG TAB.CHEW PO SCH (09:18)
[2020-06-08] MEDS: Furosemide 40 MG TABLET PO SCH (09:18)
[2020-06-08] MEDS: Methylphenidate HCl 5 MG TABLET PO SCH ×2 (09:23→14:05)
[2020-06-08] MEDS ORDERED: DilTIAZem 50 MG in 0.9 % Sodium Chloride 40 ML IVC SCH (10:15)
[2020-06-08] MEDS ORDERED: 0.9 % Sodium Chloride 1,000 ML ONE (14:17)
[2020-06-08] MEDS ORDERED: 0.9 % Sodium Chloride 500 ML IVC ONE (14:18)
[2020-06-08] MEDS: *HR* HYDROcodone/Acet 7.5/325 mg TABLET PO PRN (16:36)
[2020-06-08] MEDS: *HR* Amiodarone 200 MG TABLET PO SCH (16:36)
[2020-06-08] MEDS: Gabapentin 300 MG CAPSULE PO SCH (20:53)
[2020-06-09 05:43] LABS: Basophils % 0.6 %; Eosinophils # 0.1 K/mcL (0.0-0.6); Eosinophils % 1.4 %; Hematocrit 30.7 % (35.3-44.9); Hemoglobin 8.9 g/dL (11.5-15.4); Immature Granulocytes % 0.2 % (0-4); Lymphocytes # 1.5 K/mcL (0.6-4.6); Lymphocytes % 28.8 %; Mean Platelet Volume 9.3 fL (9.4-12.4); Monocytes # 0.5 K/mcL (0.0-1.3); Monocytes % 10.7 %; Platelet Count 239 K/mcL (140-400); Red Cell Distribution Width 14.4 % (11.5-14.5); Segmented Neutrophils % 58.3 %; White Blood Count 5.1 K/mcL (4.3-11.1)
[2020-06-09 06:12] LABS: Chloride 93 mEq/L (98-107); Potassium 3.4 mEq/L (3.5-5.1); Sodium 143 mEq/L (136-145)
[2020-06-09 06:13] LABS: BUN/Creatinine Ratio 32 (6-26); Blood Urea Nitrogen 23 mg/dL (8-23); Calcium 8.7 mg/dL (8.6-10.3); Glucose 91 mg/dL (70-105); Osmolality,Calculated 299 (280-300); eGFR For African Americans > 60 (> 60); eGFR For Non-African Americans > 60 (> 60)
[2020-06-09 06:16] LABS: Carbon Dioxide > 45 mEq/L (23-29)
[2020-06-09] MEDS: Tiotropium 18 MCG inhalation IH SCH (08:06)
[2020-06-09] MEDS: *HR* Rivaroxaban 10 MG TABLET PO SCH (08:32)
[2020-06-09] MEDS: Aspirin 81 MG TAB.CHEW PO SCH (08:32)
[2020-06-09] MEDS: *HR* Amiodarone 200 MG TABLET PO SCH (08:32)
[2020-06-09] MEDS: *HR* HYDROcodone/Acet 7.5/325 mg TABLET PO PRN (08:32)
[2020-06-09] MEDS: Methylphenidate HCl 5 MG TABLET PO SCH ×2 (08:33→12:30)
[2020-06-09] MEDS: polyethylene glycoL 3350 17 GM POWD.PACK PO SCH (18:44)
[2020-06-09] MEDS: Gabapentin 300 MG CAPSULE PO SCH (20:48)
[2020-06-09] MEDS: *HR* LORazepam 0.5 MG TABLET PO PRN (20:49)
[2020-06-09] MEDS: Melatonin 3 MG TABLET PO PRN (20:49)
[2020-06-10 05:32] LABS: Basophils % 0.4 %; Eosinophils % 0.6 %; Hematocrit 31.6 % (35.3-44.9); Immature Granulocytes % 0.2 % (0-4); Lymphocytes # 1.4 K/mcL (0.6-4.6); Lymphocytes % 29.6 %; Mean Corpuscular HGB Conc 28.5 g/dL (31.6-35.5); Mean Corpuscular Hemoglobin 26.6 pg (28.0-33.3); Mean Corpuscular Volume 93.5 fL (83.0-100.0); Mean Platelet Volume 9.5 fL (9.4-12.4); Monocytes # 0.5 K/mcL (0.0-1.3); Monocytes % 10.1 %; Neutrophils # 2.9 K/mcL (1.6-8.9); Platelet Count 233 K/mcL (140-400); Red Blood Count 3.38 M/mcL (3.82-4.97); Red Cell Distribution Width 14.3 % (11.5-14.5); Segmented Neutrophils % 59.1 %; White Blood Count 4.9 K/mcL (4.3-11.1)
[2020-06-10 07:25] LABS: Hypochromasia Present (Not Present)
[2020-06-10 07:59] LABS: BUN/Creatinine Ratio 31 (6-26); Blood Urea Nitrogen 18 mg/dL (8-23); Calcium 8.8 mg/dL (8.6-10.3); Carbon Dioxide > 45 mEq/L (23-29); Chloride 96 mEq/L (98-107); Glucose 85 mg/dL (70-105); Osmolality,Calculated 295 (280-300); Sodium 142 mEq/L (136-145); eGFR For African Americans > 60 (> 60); eGFR For Non-African Americans > 60 (> 60)
[2020-06-10] MEDS: polyethylene glycoL 3350 17 GM POWD.PACK PO SCH (09:04)
[2020-06-10] MEDS: *HR* Amiodarone 200 MG TABLET PO SCH (09:04)
[2020-06-10] MEDS: *HR* Rivaroxaban 10 MG TABLET PO SCH (09:04)
[2020-06-10] MEDS: Furosemide 40 MG TABLET PO SCH (09:05)
[2020-06-10] MEDS: Aspirin 81 MG TAB.CHEW PO SCH (09:05)
[2020-06-10] MEDS: Tiotropium 18 MCG inhalation IH SCH (09:31)
[2020-06-10] MEDS: *HR* HYDROcodone/Acet 7.5/325 mg TABLET PO PRN ×2 (09:38→23:56)
[2020-06-10] MEDS: Methylphenidate HCl 5 MG TABLET PO SCH ×2 (09:38→14:10)
[2020-06-10] MEDS: *HR* LORazepam 0.5 MG TABLET PO PRN ×2 (09:38→20:30)
[2020-06-10] MEDS ORDERED: Phenylephrine Nasal 0.5% 15 ML BOTTLE NS PRN (15:06)
[2020-06-10 15:47] LABS: Bilirubin,Urine Negative (Negative); Blood,Urine Negative (Negative); Clarity,Urine Cloudy (Clear); Glucose,Urine (UA) Normal (Normal); Ketones,Urine Negative (Negative); Leukocyte Esterase,Urine Negative (Negative); Nitrite,Urine Negative (Negative); PH,Urine 5.5 pH Units (5.0-8.0); Protein,Urine Negative (Neg-Trace); Specific Gravity,Urine 1.025 (1.010-1.025); Urobilinogen,Urine Normal (Normal)
[2020-06-10 16:00] LABS: Color,Urine Light Yellow (Yellow)
[2020-06-10 16:01] LABS: Amorphous Sediment,Urine Moderate per hpf (None-Few); Bacteria,Urine Few per hpf (None-Few); RBC,Urine 0-3 per hpf (0-3); Squamous Epithelial Cell,Urine Few per hpf (None-Few)
[2020-06-10] MEDS: Gabapentin 300 MG CAPSULE PO SCH (20:25)
[2020-06-11 07:07] LABS: Basophils % 0.6 %; Eosinophils # 0.1 K/mcL (0.0-0.6); Hematocrit 31.7 % (35.3-44.9); Hemoglobin 9.2 g/dL (11.5-15.4); Immature Granulocytes % 0.4 % (0-4); Lymphocytes # 1.9 K/mcL (0.6-4.6); Lymphocytes % 38.1 %; Mean Corpuscular Hemoglobin 26.9 pg (28.0-33.3); Mean Corpuscular Volume 92.7 fL (83.0-100.0); Mean Platelet Volume 9.9 fL (9.4-12.4); Monocytes # 0.5 K/mcL (0.0-1.3); Monocytes % 10.2 %; Neutrophils # 2.5 K/mcL (1.6-8.9); Platelet Count 241 K/mcL (140-400); Red Blood Count 3.42 M/mcL (3.82-4.97); Red Cell Distribution Width 14.5 % (11.5-14.5); Segmented Neutrophils % 49.7 %
[2020-06-11 07:46] LABS: BUN/Creatinine Ratio 32 (6-26); Blood Urea Nitrogen 18 mg/dL (8-23); Carbon Dioxide > 45 mEq/L (23-29); Chloride 95 mEq/L (98-107); Glucose 96 mg/dL (70-105); Osmolality,Calculated 300 (280-300); Sodium 144 mEq/L (136-145); eGFR For African Americans > 60 (> 60); eGFR For Non-African Americans > 60 (> 60)
[2020-06-11] MEDS: *HR* Rivaroxaban 10 MG TABLET PO SCH (08:40)
[2020-06-11] MEDS: Furosemide 40 MG TABLET PO SCH (08:40)
[2020-06-11] MEDS: polyethylene glycoL 3350 17 GM POWD.PACK PO SCH (08:41)
[2020-06-11] MEDS: Aspirin 81 MG TAB.CHEW PO SCH (08:41)
[2020-06-11] MEDS: *HR* Amiodarone 200 MG TABLET PO SCH (08:41)
[2020-06-11] MEDS: Tiotropium 18 MCG inhalation IH SCH (09:29)
[2020-06-11 11:01] VITALS: BP 99/49
[2020-06-11] MEDS: *HR* LORazepam 0.5 MG TABLET PO PRN (13:26)
[2020-06-11] MEDS: Methylphenidate HCl 5 MG TABLET PO SCH (13:26)
[2020-06-11] MEDS: *HR* HYDROcodone/Acet 7.5/325 mg TABLET PO PRN (13:35)
== END 2020-06-11 17:39 ==
LOC: INPPIK 13:41 → EMEROOPIK 13:41 → INPPIK 16:26
PROVIDERS: ADMIT Family Medicine; ATTEND Family Medicine